=== PATIENT | male | born 1960 | race Caucasian/White ===

== ENCOUNTER 2017-03-31 10:39 | Emergency (ER) | payer BC ==
[2017-03-31 11:33] LABS: #Basophils 0.1 thou/uL (0.0-0.2); #Eosinphils 0.1 thou/uL (0.0-0.7); #Lymphocytes 1.7 thou/uL (1.20-3.40); #Monocytes 0.5 thou/uL (0.11-0.59); #Neutrophils 3.5 thou/uL (1.40-6.50); %Basophils 1.4 % (0.0-1.0); %Eosinophils 1.9 % (0.0-10.0); %Monocytes 8.8 % (0.0-10.0); %Neutrophils 58.9 % (42.0-75.0); Hemoglobin 13.5 g/dL (14.0-18.0); Mean Corpuscular Hemoglobin 30.9 pg (27.0-31.0); Mean Corpuscular Volume 90.9 fl (80.0-94.0); Mean Platelet Volume 7.5 fL (7.4-10.4); Platelet Count 183 thou/uL (130-400); Red Blood Cell (RBC) Count 4.37 mill/uL (4.70-6.10)
[2017-03-31 11:46] LABS: ALT (SGPT) 67 U/L (8-55); AST (SGOT) 64 U/L (5-34); Alkaline Phosphatase 72 U/L (40-150); Anion Gap 16 mmol/L (10-20); BUN (Urea Nitrogen) 12 mg/dL (8.4-25.7); Bilirubin, Total 0.4 mg/dL (0.2-1.2); CK (CPK) 856 U/L (30-200); Calc. Creatinine Clearance 0 mL/min (70-130); Calcium 9.5 mg/dL (7.8-10.44); Carbon Dioxide 22 mmol/L (22-29); Chloride 100 mmol/L (98-107); Estimated GFR-MDRD 65; Globulin 3.5 g/dL (2.4-3.5); Glucose 159 mg/dL (70-105); Lipase 28 U/L (8-78); Potassium 4.3 mmol/L (3.5-5.1); Protein, Total 7.5 g/dL (6.0-8.3); Sodium 134 mmol/L (136-145)
--- NOTE | 2017-03-31 11:46 | RAD ---
RADIOGRAPH CHEST 1 VIEW: HISTORY: A 56-year-old male with acute chest pain and flu-like symptoms. FINDINGS: There are no air space densities, pulmonary edema, pneumothorax, or cardiomegaly. The lateral costop hrenic angles are sharp. IMPRESSION: No acute cardiopulmonary findings. sesar [] POS: [facility]
[2017-03-31 11:49] LABS: Troponin I Less than 0.010 ng/mL (< 0.028)
[2017-03-31] MEDS ORDERED: methylPREDNISolone Sod Succ/PF 125 MG/2 ML VIAL ONE (12:03)
[2017-03-31] MEDS ORDERED: Water For Inject, Bacteriostat 30 ML ONE (12:03)
== END 2017-03-31 12:20 | disposition home or self-care (01) ==
LOC: ERS 10:39
DX: J45.901 Unspecified asthma with (acute) exacerbation (principal); R07.81 Pleurodynia; M62.82 Rhabdomyolysis; I25.2 Old myocardial infarction; E11.9 Type 2 diabetes mellitus without complications; E78.5 Hyperlipidemia, unspecified; I10 Essential (primary) hypertension; F32.9 Major depressive disorder, single episode, unspecified; Z87.891 Personal history of nicotine dependence; Z79.899 Other long term (current) drug therapy
CPT/HCPCS: 36415; 71010; 80053; 82550; 82553; 83605; 83690; 84484; 85025; 93005; 94760; 96374; J2930

== ENCOUNTER 2017-04-26 10:57 | Inpatient (IN) | payer BC ==
[2017-04-26 11:54] LABS: #Eosinphils 0.1 thou/uL (0.0-0.7); #Lymphocytes 1.8 thou/uL (1.20-3.40); #Monocytes 0.8 thou/uL (0.11-0.59); #Neutrophils 10.9 thou/uL (1.40-6.50); %Basophils 0.3 % (0.0-1.0); %Eosinophils 0.8 % (0.0-10.0); %Lymphocytes 13.1 % (21.0-51.0); %Monocytes 5.9 % (0.0-10.0); %Neutrophils 79.9 % (42.0-75.0); Hemoglobin 14.3 g/dL (14.0-18.0); Mean Corpuscular HGB CONC 33.1 g/dL (32.0-36.0); Mean Corpuscular Hemoglobin 30.8 pg (27.0-31.0); Mean Corpuscular Volume 92.8 fl (80.0-94.0); Mean Platelet Volume 7.5 fL (7.4-10.4); Platelet Count 210 thou/uL (130-400); RBC Distribution Width 13.4 % (11.5-14.5); Red Blood Cell (RBC) Count 4.64 mill/uL (4.70-6.10); White Blood Cell (WBC) Count 13.6 thou/uL (4.8-10.8)
[2017-04-26 11:59] LABS: PTT 24.3 SEC (22.9-36.1)
[2017-04-26 12:00] LABS: INR-International Normal Ratio 1.1
[2017-04-26] MEDS ORDERED: Morphine 4 MG/ML Carpuject ONE ×2 (12:00→13:14)
[2017-04-26] MEDS ORDERED: Ondansetron HCl/PF 4 MG/2 ML Vial ONE (12:00)
--- NOTE | 2017-04-26 12:06 | RAD ---
SHORTY 1 VIEW: Date: 04/26/17 HISTORY: 56-year-old male with chest pain and epigastric pain. COMPARISON: 03/31/17. FINDINGS: Jewelry chain overlies the upper chest. Monitor leads overlie the chest. Heart size is normal. No con fluent pneumonia, overt edema, or pleural effusion. IMPRESSION: No significant acute process involving the visualized chest. POS: [facility]
[2017-04-26 12:17] LABS: CKMB 4.3 ng/mL (0-6.6); Troponin I Less than 0.010 ng/mL (< 0.028)
[2017-04-26 12:19] LABS: ALT (SGPT) 52 U/L (8-55); AST (SGOT) 57 U/L (5-34); Albumin 3.8 g/dL (3.5-5.0); Alkaline Phosphatase 56 U/L (40-150); Anion Gap 17 mmol/L (10-20); BUN (Urea Nitrogen) 12 mg/dL (8.4-25.7); Bilirubin, Total 0.5 mg/dL (0.2-1.2); CK (CPK) 216 U/L (30-200); Calc. Creatinine Clearance 0 mL/min (70-130); Calcium 8.8 mg/dL (7.8-10.44); Carbon Dioxide 19 mmol/L (22-29); Chloride 105 mmol/L (98-107); Estimated GFR-MDRD 75; Globulin 3.2 g/dL (2.4-3.5); Glucose 193 mg/dL (70-105); Potassium 4.6 mmol/L (3.5-5.1); Sodium 136 mmol/L (136-145)
[2017-04-26 12:30] LABS: Lipase 5729 U/L (8-78)
[2017-04-26] MEDS ORDERED: Metoclopramide HCl 10 MG/2 ML VIAL ONE (13:21)
[2017-04-26] MEDS ORDERED: ISOVUE-370 76%-LOCM 1 ML ONE (14:15)
[2017-04-26] MEDS ORDERED: Dextrose 5% in Water 1,000 ML IV PRN (14:26)
[2017-04-26] MEDS ORDERED: PROVENTIL INHALER 6.7 G (200 INHALATIONS) INH PRN (14:26)
[2017-04-26] MEDS ORDERED: HumaLOG 300 UNITS/3 ML VIAL SC PRN (14:26)
[2017-04-26] MEDS ORDERED: Dextrose 50% Abboject 50 ML SYRINGE SLOW IVP PRN (14:26)
[2017-04-26] MEDS ORDERED: Promethazine HCl 25 MG/ML VIAL IM PRN (14:26)
[2017-04-26] MEDS ORDERED: Acetaminophen 325 MG TAB PO PRN (14:26)
[2017-04-26] MEDS ORDERED: Ondansetron HCl/PF 4 MG/2 ML Vial IVP PRN (14:26)
[2017-04-26] MEDS ORDERED: Guaifenesin DM 100-10/5 ML UDCUP PO PRN (14:26)
--- NOTE | 2017-04-26 15:41 | HP ---
REASON FOR ADMISSION: Acute pancreatitis. HISTORY OF PRESENT ILLNESS: The patient gives history of having epigastric pain which started around 9:00 a.m. This was radiating up into his retrosternal area. The pain was 10/10 in intensity and wa s always there. He has had similar pains in the past and has had pancreatitis. He has had nearly 5- 6 episodes in the past. The first episode of pancreatitis was in 2008. Patient has seen Dr. Shaun Dillard for his pancreas before. Patient admits to relapsing into drinking alcohol from October s year. The patient's stepdad was in hospice and he was here to see him and in fact his stepdad pass ed away this morning. The pain got worse and patient managed to come to the emergency room here. No complaints of palpitations, fever, or cough. He is passing flatus. PAST MEDICAL AND SURGICAL HISTORY: History of recurrent pancreatitis, likely alcohol induced, prior history of cholecystectomy, hernia repair, diabetes mellitus type 2, dyslipidemia, hypertension, and asthma. CURRENT MEDICATIONS: Glipizide 10 mg daily, metformin 2000 mg daily extended release, morphine exten ded release 30 mg 4 times a day, lisinopril 20 mg daily, Onglyza 5 mg daily, simvastatin 80 mg p.o. a t bedtime, aspirin 81 mg p.o. q.a.m., fluoxetine 40 mg twice daily, Lantus 120 units subcu once daily . He also takes Creon capsules daily before meals and Advair Diskus 2 puffs daily. ALLERGIES: MUSHROOMS. No known drug allergies. PERSONAL HISTORY: The patient continues to drink 4-5 beers on a daily basis. He has relapsed into d rinking alcohol from October of this year. He chews tobacco, does not abuse drugs. Lives with his wi fe. FAMILY HISTORY: Biological mom at the age of 45 years. She has had some variety of hereditary blood disease, which he cannot recall. His biological father of massive [place] at the age of 66. Gideon is stepdad this morning. He has had flu, pneumonia and dementia. REVIEW OF SYSTEMS: The following complete review of systems was negative, unless otherwise mentioned in the HPI or below: Constitutional: Weight loss or gain, ability to conduct usual activities. Sk in: Rash, itching. Eyes: Double vision, pain. ENT/Mouth: Nose bleeding, neck stiffness, pain, te nderness. Cardiovascular: Palpitations, dyspnea on exertion, orthopnea. Respiratory: Shortness of breath, wheezing, cough, hemoptysis, fever or night sweats. Gastrointestinal: Poor appetite, abdom inal pain, heartburn, nausea, vomiting, constipation, or diarrhea. Genitourinary: Urgency, frequenc y, dysuria, nocturia. Musculoskeletal: Pain, swelling. Neurologic/Psychiatric: Anxiety, depressio n. Allergy/Immunologic: Skin rash, bleeding tendency. PHYSICAL EXAMINATION: GENERAL: The patient is a 56-year-old male who is currently not in any acute distress. VITAL SIGNS: Blood pressure 126/84, pulse 80 per minute, respiratory rate 18 per minute, temperature 97.9 degrees Fahrenheit, saturating 93% on room air. NECK: Supple, no elevated JVD. HEENT: Extraocular muscles intact. Pupils reacting to light. Oral cavity mucous membranes are dry. No exudates or congestion. CARDIOVASCULAR SYSTEM: S1, S2 heard. Regular rhythm. RESPIRATORY SYSTEM: Air entry 1+ bilateral, ulcerations. No rales or rhonchi. ABDOMEN: Soft. There is mild tenderness in the epigastric area. No rebound or guarding, no rigidit y. Bowel sounds are heard. EXTREMITIES: There is mild peripheral edema, no calf tenderness. VASCULAR SYSTEM: Peripheral pulses 1+ bilateral. No ischemic ulcerations or gangrene. CENTRAL NERVOUS SYSTEM: No gross focal deficits seen. Patient is alert, awake, oriented well. PSYCHIATRIC: The patient's mood is euthymic. No hallucinations or delusions. LABORATORY DATA AND X-RAY FINDINGS: Chest x-ray done shows no acute cardiopulmonary abnormalities. White count 13, H and H 14 and 42, platelet count 210 with 79% neutrophils, MCV is 92. PT, INR, PTT within normal limits. Serum bicarbonate 19, BUN 12, creatinine 1.0. Glucose 193, AST 57, ALT 52, al kaline phosphatase is 56, total bilirubin 0.5, lipase is 5729, random triglyceride level is 95, and a lbumin is 3.8. CLINICAL IMPRESSION AND PLAN: The patient will be admitted to medical floor for acute on chronic rec urrent pancreatitis due to alcohol abuse. He will be kept n.p.o. except for medications. The patien t will be on normal saline at 100 mL per hour. He is already on an extended release morphine and dexter l continue that in addition to Demerol p.r.n. We will obtain a lipid profile in the morning. We dexter razo hold most of his diabetic medications as patient will be n.p.o. for now. We will continue simvasta tin and his inhalers for his asthma. A CT of the abdomen without contrast will be obtained to see fo r the pancreatic parenchyma. We will also consult his plaster patternmaker, Dr. Shaun Dillard, in fact Dr. Wai Carlin who is telesales professional for the group. We will continue to closely monitor him for any hemody namic compromise.
[2017-04-26] MEDS: Sodium Chloride 0.9% 1,000 ML IV SCH (16:23)
--- NOTE | 2017-04-26 16:25 | CT ---
CT ABDOMEN AND PELVIS WITH CONTRAST 04/26/17 HISTORY: Acute pancreatitis. COMPARISON: CT abdomen and pelvis, 11/24/16. FINDINGS: The lung bases are clear. No pericardial effusion. There is acute edematous pancreatitis of the pancreatic head, neck, uncinate process along with secon jose thickening and duodenitis. The pancreas is unremarkable. The spleen is unremarkable. Prior marielos cystectomy. No areas of nonenhancement of the pancreatic parenchyma. No dilated loops of large or sm all bowel. Small mass of the lateral limb left adrenal gland, too small to characterize and sub 5 mm. No focal drainable fluid collection. No hydronephrosis. The portal vein is patent as well as the splenic vein. Urinary bladder is unremarkable. Skeleton is unremarkable. IMPRESSION: Acute edematous pancreatitis without areas of necrosis. This is worse than the prior bout of pancrea titis from 11/24/16. POS: [facility]
[2017-04-26] MEDS: Meperidine HCl/PF 25 MG/ML VIAL SLOW IVP PRN ×2 (16:28→23:02)
[2017-04-26] MEDS: Mometasone/Formoterol 120 PUFF INHALER INH SCH (19:13)
[2017-04-26] MEDS: Atorvastatin Calcium 40 MG TAB PO SCH (20:46)
[2017-04-26] MEDS: Morphine ER 30 MG TAB PO SCH (20:46)
[2017-04-26] MEDS: Famotidine 20 MG TAB PO SCH (20:47)
[2017-04-26] MEDS: Docusate 100 MG CAP PO SCH (20:47)
[2017-04-26] MEDS: Aripiprazole 2 MG TAB PO SCH (20:47)
--- NOTE | 2017-04-26 23:28 | CON ---
DATE OF CONSULTATION: 04/26/2017 REQUESTING PHYSICIAN: Dr. Dahl. REASON FOR CONSULTATION: Acute recurrent pancreatitis. HISTORY OF PRESENT ILLNESS: Jean Recinos is a 56-year-old gentleman with obesity and diabetes, and al so a history of alcohol abuse, well compensated alcoholic cirrhosis and chronic pancreatitis with mul tiple acute exacerbations. It looks like back in 2012, he was originally seen by my GI colleague, Dr Ceferino Dillard with pancreatitis. He actually underwent endoscopic ultrasound in 2012, which just s howed changes of chronic pancreatitis. In 12/2012, he had a cholecystectomy with negative intraopera tive cholangiogram and actually had an intraoperative liver biopsy at that time showing stage 4 out o f 4 fibrosis and steatohepatitis consistent with alcohol abuse. The patient's last hospitalization f or pancreatitis was in October of last year, he was seen by Dr. Brunner at that time, his hospitalizati on lasted only 2-3 days and he had great symptomatic improvement fairly quickly. He has not had any complications of pancreatitis such as pseudocyst. He does take pancreatic enzymes with meals. How er, he does state that ever since last October, he has continued to drink alcohol. He will have 4-5 b eers per day. However, he states he has not had any alcohol over the past week. Unfortunately, his stepfather earlier today while the patient was being admitted. He had the acute onset of 10 epigastric pain, nausea, and vomiting x2 earlier this morning. He also had three loose bowel mov ements. There has been no hematemesis or hematochezia. Upon admission, his lipase was elevated at 5 729, but other labs were essentially unremarkable with normal LFTs. BUN 12, creatinine 1.02, hemoglo bin 14.3. Chest x-ray showed no acute processes. He is going down at this time for a CT scan with I V Demerol. His pain is now down to 6/10. No current nausea. REVIEW OF SYSTEMS: Full review of systems including constitutional, head, eyes, ears, nose, throat, GI, , cardiovascular, respiratory, musculoskeletal, and neurologic systems is negative except as no carol in the HPI. PAST MEDICAL HISTORY: Diabetes, hypertension, hyperlipidemia, recurrent pancreatitis, cholecystectom y in 2012, alcoholic cirrhosis based on liver biopsy 01/18/2013, and well compensated, hernia repair. ALLERGIES: MUSHROOMS. OUTPATIENT MEDICATIONS: Morphine, glipizide, lisinopril, metformin, Onglyza, Zocor, aspirin 81 mg da corey, fluoxetine, Lantus 120 units b.i.d., Zenpep with meals, albuterol, and Advair. SOCIAL HISTORY: He is a former smoker. He does chew tobacco. He has been drinking alcohol for the past several months, though not over the past week, basically 4-5 beers per day. FAMILY HISTORY: Negative for pancreatic disease. PHYSICAL EXAMINATION: VITAL SIGNS: Temperature 97.9, pulse 84, blood pressure 150/69, and 96% oxygen saturation on room ai r. GENERAL: Obese 56-year-old gentleman lying in bed comfortably, in no acute distress. SKIN: No jaundice, no rash visible or palpable. EYES: No scleral icterus. Extraocular movements intact. ENT: Mucous membranes moist, no oral lesions. LYMPH: No submandibular, supraclavicular lymphadenopathy. THYROID: Nontender to palpation. HEART: Regular rate and rhythm. No murmur appreciated. CHEST: Clear to auscultation bilaterally. ABDOMEN: Bowel sounds are present, but hypoactive, soft, but tender to palpation in the epigastrium. No guarding or rebound tenderness. No masses or organomegaly appreciated. EXTREMITIES: No peripheral edema. VESSELS: Radial pulses 2+ bilaterally. NEUROLOGICAL: Cranial nerves II-XII intact bilaterally. No focal deficits. LABORATORY STUDIES: WBC 13.6, hemoglobin 14.3, platelets 210. Sodium 136, potassium 4.6, BUN 12, cr eatinine 1.02, glucose 193. INR 1.1. Total bilirubin 0.5, alkaline phosphatase 56, AST 57, ALT 52, albumin 3.8, lipase elevated at 5729. Triglycerides only 95. Troponin negative. IMAGING STUDIES: Chest x-ray shows no acute processes. CT of the abdomen is pending for later today . ASSESSMENT AND PLAN: 1. Acute recurrent pancreatitis. 2. Chronic pancreatitis. 3. Cirrhosis secondary to alcohol abuse, well compensated. 4. Alcohol abuse. The patient's presentation is consistent with his prior presentations with acute recurrent pancreatitis. This is in the context of ongoing alcohol abuse. Note to the essentially no rmal LFTs and INR as well as albumin. It appears his cirrhosis remains well compensated. Lab parame ters are overall favorable for a low risk of complications of this episode of pancreatitis. Note, he has already had an endoscopic ultrasound several years ago. We are now continue with conservative supportive care including n.p.o., IV fluids, and pain control a s you are doing, would have him continue his Zenpep once he is eating again. I discussed with him th at he really needs to stay off the alcohol at this time. We will also follow up results of the [facility] ed CT this evening. Hopefully, this episode will be mild and short in duration of his previous episo jessica. Thank you for the consultation. Please call back with questions or concerns.
[2017-04-27] MEDS: Sodium Chloride 0.9% 1,000 ML IV SCH ×3 (00:01→18:10)
[2017-04-27 04:44] LABS: #Lymphocytes 1.3 thou/uL (1.20-3.40); #Monocytes 0.7 thou/uL (0.11-0.59); #Neutrophils 9.7 thou/uL (1.40-6.50); %Eosinophils 0.2 % (0.0-10.0); %Lymphocytes 11.1 % (21.0-51.0); %Monocytes 5.7 % (0.0-10.0); Hemoglobin 13.9 g/dL (14.0-18.0); Mean Corpuscular HGB CONC 34.1 g/dL (32.0-36.0); Mean Corpuscular Hemoglobin 31.5 pg (27.0-31.0); Mean Corpuscular Volume 92.4 fl (80.0-94.0); Mean Platelet Volume 7.8 fL (7.4-10.4); Platelet Count 210 thou/uL (130-400); RBC Distribution Width 13.5 % (11.5-14.5); White Blood Cell (WBC) Count 11.7 thou/uL (4.8-10.8)
[2017-04-27 04:58] LABS: ALT (SGPT) 42 U/L (8-55); AST (SGOT) 34 U/L (5-34); Albumin 3.8 g/dL (3.5-5.0); Alkaline Phosphatase 51 U/L (40-150); Bilirubin, Direct 0.3 mg/dL (0.1-0.3); Bilirubin, Total 0.6 mg/dL (0.2-1.2); Cardiac Risk 2.3 (Less than 4.5); Cholesterol 125 mg/dl (< 200 Desired); HDL Cholesterol 55 mg/dL (>60 Neg Risk); LDL Cholesterol, Calculated 57 mg/dL; Lipase 792 U/L (8-78); Protein, Total 6.9 g/dL (6.0-8.3); Triglycerides 63 mg/dL (Less than 150)
[2017-04-27] MEDS: Morphine ER 30 MG TAB PO SCH ×3 (06:14→20:44)
[2017-04-27] MEDS: Mometasone/Formoterol 120 PUFF INHALER INH SCH ×2 (07:26→19:29)
[2017-04-27] MEDS: Aripiprazole 2 MG TAB PO SCH ×2 (09:09→20:44)
[2017-04-27] MEDS: Famotidine 20 MG TAB PO SCH ×2 (09:09→20:44)
[2017-04-27] MEDS: Enoxaparin Sodium 40 MG/0.4 ML SYRINGE SC SCH (09:09)
[2017-04-27] MEDS: Docusate 100 MG CAP PO SCH ×2 (09:09→20:50)
[2017-04-27] MEDS: Meperidine HCl/PF 25 MG/ML VIAL SLOW IVP PRN ×2 (09:40→20:45)
--- NOTE | 2017-04-27 11:00 | PRG ---
DATE OF SERVICE: 04/27/2017 GI INPATIENT DAILY PROGRESS NOTE SUBJECTIVE: Mr. Recinos says he is feeling a lot better today. Nausea has significantly improved. Abd ominal pain is also greatly declined. He has been passing flatus. He is feeling a bit hungry today as well. Lab parameters were all favorable. PHYSICAL EXAMINATION: VITAL SIGNS: Temperature 97.6, pulse 74, blood pressure 180/81, 96% oxygen saturation on room air. GENERAL: Appearing well, sitting up at the edge of the bed comfortably. HEART: Regular rate and rhythm. LUNGS: Clear to auscultation bilaterally. ABDOMEN: Bowel sounds are present throughout all 4 quadrants. Soft. Some mild tenderness to palpat ion in the epigastrium, but no guarding, rebound tenderness. EXTREMITIES: No peripheral edema. LABORATORY STUDIES: WBC down to 11.7, hemoglobin 13.9, and platelets 210. LFTs remain normal. Lipa se down to 792 from 5729 yesterday. ASSESSMENT AND PLAN: 1. Acute recurrent pancreatitis, clinically improving. 2. Chronic pancreatitis. The patient's acute episode appears to be clinically improving. We will g o ahead and advance his diet to clear liquids this morning. I think if he is tolerating this well wi th no increase in abdominal pain, to consider advancing diet further this evening.
[2017-04-27 12:39] VITALS: BMI 32.5
--- NOTE | 2017-04-27 14:32 | PDOC.PN ---
- Subjective Encounter Start Date: 04/27/17 Encounter Start Time: 08:00 Subjective: still has abd pain, no nausea, is passing flatus - Objective Resuscitation Status: Resuscitation Status FULL:Full Resuscitation MAR Reviewed: Yes Vital Signs & Weight: Vital Signs (12 hours) Temp Pulse Resp BP Pulse Ox 04/27/17 08:00 97.6 F 74 20 180/81 H 96 04/27/17 07:26 81 14 96 Weight Admit Weight 233 lb Weight 233 lb Result Diagrams: 04/27/17 03:25 04/26/17 11:42 Additional Labs: Accuchecks 04/27/17 04/27/17 04/26/17 11:24 04:31 20:25 POC Glucose 182 H 205 H 242 H 04/26/17 16:29 POC Glucose 249 H Phys Exam - Physical Examination HEENT: PERRLA, moist MMs Neck: no JVD, supple Respiratory: no wheezing, no rales Cardiovascular: RRR, no significant murmur Gastrointestinal: soft, no distention, positive bowel sounds Musculoskeletal: no edema, pulses present Neurological: non-focal, moves all 4 limbs Psychiatric: A&O x 3 Dx/Plan (1) Acute pancreatitis Code(s): K85.90 - ACUTE PANCREATITIS WITHOUT NECROSIS OR INFECTION, UNSP Status: Acute Qualifiers: Pancreatitis type: alcohol induced (2) COPD (chronic obstructive pulmonary disease) Status: Chronic Qualifiers: COPD type: chronic bronchitis (3) Chronic low back pain Code(s): M54.5 - LOW BACK PAIN; G89.29 - OTHER CHRONIC PAIN Status: Chronic Qualifiers: Back pain laterality: unspecified Sciatica presence: without sciatica Qualified Code(s): M54.5 - Low back pain; G89.29 - Other chronic pain; G89.29 - Other chronic pain (4) Diabetes type 2, controlled Code(s): E11.9 - TYPE 2 DIABETES MELLITUS WITHOUT COMPLICATIONS Status: Chronic Qualifiers: Diabetes mellitus complication status: with unspecified complications Diabetes mellitus halfway insulin use: with halfway use Qualified Code(s) : E11.8 - Type 2 diabetes mellitus with unspecified complications; Z79.4 - local intermodal truck driver (current) use of insulin; Z79.4 - local intermodal truck driver (current) use of insulin; Z79.4 - senior care (current) use of insulin; Z79.4 - senior care (current) use of insulin (5) GERD (gastroesophageal reflux disease) Code(s): K21.9 - GASTRO-ESOPHAGEAL REFLUX DISEASE WITHOUT ESOPHAGITIS Status: Chronic Qualifiers: Esophagitis presence: esophagitis presence not specified Qualified Code(s) : K21.9 - Gastro-esophageal reflux disease without esophagitis (6) Hypertension Code(s): I10 - ESSENTIAL (PRIMARY) HYPERTENSION Status: Chronic Qualifiers: Hypertension type: essential hypertension Qualified Code(s): I10 - Essential (primary) hypertension (7) Obesity (BMI 30.0-34.9) Code(s): E66.9 - OBESITY, UNSPECIFIED Status: Chronic - Plan will be on clear liq diet from today -: on demerol, oral morphine ER, lipitor -: gentle iv hydration -: to amb in hallway -: watch for resp depression with narcotics and phenergan * . Review of Systems - Medications/Allergies Allergies/Adverse Reactions: Allergies Allergy/AdvReac Type Severity Reaction Status Date / Time No Known Drug Allergies Allergy Verified 07/06/14 00:10 MUSHROOMS Allergy Severe Uncoded 07/06/14 00:10 Medications: Current Medications Acetaminophen (Tylenol) 650 mg PO Q4H PRN PRN Reason: Headache/Fever or Pain Albuterol Sulfate (Proventil Hfa) 2 puff INH Q4H PRN PRN Reason: SOB &/or Wheezing Aripiprazole (Abilify) 2 mg PO BID [facility] Last Admin: 04/27/17 09:09 Dose: 2 mg Atorvastatin Calcium (Lipitor) 40 mg PO HS [facility] Last Admin: 04/26/17 20:46 Dose: 40 mg Dextrose/Water (Dextrose 50%) 25 gm SLOW IVP PRN PRN PRN Reason: Hypoglycemia Docusate Sodium (Colace) 100 mg PO BID [facility] Last Admin: 04/27/17 09:09 Dose: 100 mg Enoxaparin Sodium (Lovenox) 40 mg SC 0900 [facility] Last Admin: 04/27/17 09:09 Dose: 40 mg Famotidine (Pepcid) 20 mg PO BID [facility] Last Admin: 04/27/17 09:09 Dose: 20 mg Glucagon (Glucagon) 1 mg IM PRN PRN PRN Reason: Hypoglycemia Guaifenesin/Dextromethorphan (Robitussin Dm) 15 ml PO Q4H PRN PRN Reason: Cough Dextrose/Water (D5w) 1,000 mls @ 0 mls/hr IV .Q0M PRN; As Directed PRN Reason: Hypoglycemia Sodium Chloride (Normal Saline 0.9%) 1,000 mls @ 100 mls/hr IV .Q10H [facility] Last Admin: 04/27/17 09:10 Dose: 1,000 mls Insulin Human Lispro (Humalog) 0 units SC .MODERATE SLIDING SC PRN PRN Reason: Moderate Correctional Scale Insulin Human Lispro (Humalog) 0 units SC .BEDTIME SLIDING SC PRN PRN Reason: Bedtime Correctional Scale Meperidine HCl (Demerol) 25 mg SLOW IVP Q3H PRN PRN Reason: Severe Pain (7-10) Last Admin: 04/27/17 09:40 Dose: 25 mg Mometasone Furoate/Formoterol Fumar (Dulera 100 Mcg/5 Mcg Inhaler) 2 puff INH BID-RT [facility] Last Admin: 04/27/17 07:26 Dose: 2 puff Morphine Sulfate (Ms Contin) 30 mg PO Q8HR [facility] Last Admin: 04/27/17 06:14 Dose: 30 mg Ondansetron HCl (Zofran) 4 mg IVP Q6H PRN PRN Reason: Nausea/Vomiting Last Admin: 04/26/17 20:33 Dose: 4 mg Promethazine HCl (Phenergan) 12.5 mg IM Q4H PRN PRN Reason: Nausea/Vomiting
[2017-04-27] MEDS: Nicotine 21 MG PATCH TD SCH (15:05)
[2017-04-27] MEDS: HumaLOG 300 UNITS/3 ML VIAL SC PRN (18:08)
[2017-04-27] MEDS: Atorvastatin Calcium 40 MG TAB PO SCH (20:44)
[2017-04-28] MEDS: Morphine ER 30 MG TAB PO SCH ×3 (05:49→21:27)
[2017-04-28] MEDS: Sodium Chloride 0.9% 1,000 ML IV SCH ×2 (05:51→16:36)
[2017-04-28] MEDS: Mometasone/Formoterol 120 PUFF INHALER INH SCH ×2 (06:42→22:17)
[2017-04-28] MEDS: Famotidine 20 MG TAB PO SCH ×2 (08:11→21:27)
[2017-04-28] MEDS: Docusate 100 MG CAP PO SCH ×2 (08:12→21:27)
[2017-04-28] MEDS: Enoxaparin Sodium 40 MG/0.4 ML SYRINGE SC SCH (08:12)
[2017-04-28] MEDS: Aripiprazole 2 MG TAB PO SCH ×2 (08:19→21:41)
[2017-04-28] MEDS: Meperidine HCl/PF 25 MG/ML VIAL SLOW IVP PRN ×3 (08:24→21:34)
--- NOTE | 2017-04-28 11:42 | PDOC.PN ---
- Subjective Encounter Start Date: 04/28/17 Encounter Start Time: 11:40 Subjective: minimal abd discomfort, no N/V - Objective Resuscitation Status: Resuscitation Status FULL:Full Resuscitation MAR Reviewed: Yes Vital Signs & Weight: Vital Signs (12 hours) Temp Pulse Resp BP Pulse Ox 04/28/17 11:34 98.4 F 74 18 119/78 95 04/28/17 08:00 98.3 F 81 18 94 L 04/28/17 07:28 98.3 F 81 18 155/85 H 94 L 04/28/17 06:42 84 16 94 L Weight Admit Weight 233 lb Weight 233 lb I&O: 04/27/17 04/28/17 04/29/17 06:59 06:59 06:59 Intake Total 840 Balance 840 Result Diagrams: 04/27/17 03:25 04/26/17 11:42 Additional Labs: Accuchecks 04/28/17 04/27/17 04/27/17 05:15 21:22 16:18 POC Glucose 171 H 203 H 198 H 04/27/17 11:24 POC Glucose 182 H Phys Exam - Physical Examination Constitutional: NAD Neck: no JVD Respiratory: clear to auscultation bilateral Cardiovascular: RRR, no significant murmur Gastrointestinal: soft, non-tender, positive bowel sounds Musculoskeletal: no edema Dx/Plan (1) Acute pancreatitis Code(s): K85.90 - ACUTE PANCREATITIS WITHOUT NECROSIS OR INFECTION, UNSP Status: Acute Qualifiers: Pancreatitis type: alcohol induced (2) COPD (chronic obstructive pulmonary disease) Status: Chronic Qualifiers: COPD type: chronic bronchitis (3) Diabetes type 2, controlled Code(s): E11.9 - TYPE 2 DIABETES MELLITUS WITHOUT COMPLICATIONS Status: Chronic Qualifiers: Diabetes mellitus complication status: with unspecified complications Diabetes mellitus mcfp insulin use: with terminal clerk use Qualified Code(s) : E11.8 - Type 2 diabetes mellitus with unspecified complications; Z79.4 - terminal supervisor (current) use of insulin; Z79.4 - detention (current) use of insulin; Z79.4 - detention (current) use of insulin; Z79.4 - detention (current) use of insulin (4) GERD (gastroesophageal reflux disease) Code(s): K21.9 - GASTRO-ESOPHAGEAL REFLUX DISEASE WITHOUT ESOPHAGITIS Status: Chronic Qualifiers: Esophagitis presence: esophagitis presence not specified Qualified Code(s) : K21.9 - Gastro-esophageal reflux disease without esophagitis (5) H/O chronic pancreatitis Code(s): Z87.19 - PERSONAL HISTORY OF OTHER DISEASES OF THE DIGESTIVE SYSTEM Status: Chronic - Plan advance diet, monitor for GI symptoms -: cont ACCU/SS/ etc * .
--- NOTE | 2017-04-28 13:24 | PRG ---
DATE OF SERVICE: 04/28/2017 SUBJECTIVE: Mr. Recinos is feeling well this morning. No nausea. He feels hungry. He has been passin g gas. He rates his abdominal pain about 4-5/10, which is close to his baseline. He is wanting to t ry to eat solid food today. He tolerated full liquids just fine. OBJECTIVE: VITAL SIGNS: Temperature 98.4, pulse 74, blood pressure 119/78, 95% oxygen saturation on room air. GENERAL: In no acute distress. HEART: Regular rate and rhythm. LUNGS: Clear to auscultation bilaterally. ABDOMEN: Bowel sounds are present, soft, mild tenderness to palpation in the epigastrium, but no gua rding or rebound tenderness. EXTREMITIES: No peripheral edema. LABORATORY STUDIES: Glucose 188. No other new labs today. ASSESSMENT AND PLAN: 1. Acute recurrent pancreatitis, clinically improving. 2. Chronic pancreatitis, secondary to alcohol abuse. 3. Cirrhosis secondary to alcohol abuse, very well compensated. Agree with advancing his diet today and seeing how he does. I think if he tolerates lunch without an y worsening abdominal pain, he could potentially be discharged from the hospital later today.
[2017-04-28] MEDS: Nicotine 21 MG PATCH TD SCH (13:32)
[2017-04-28] MEDS: Atorvastatin Calcium 40 MG TAB PO SCH (21:27)
[2017-04-28] MEDS: HumaLOG 300 UNITS/3 ML VIAL SC PRN (21:39)
[2017-04-29] MEDS: Sodium Chloride 0.9% 1,000 ML IV SCH ×2 (02:26→02:27)
[2017-04-29] MEDS: Morphine ER 30 MG TAB PO SCH (05:17)
[2017-04-29] MEDS: Mometasone/Formoterol 120 PUFF INHALER INH SCH (07:41)
[2017-04-29] MEDS: Meperidine HCl/PF 25 MG/ML VIAL SLOW IVP PRN (08:53)
[2017-04-29] MEDS: Famotidine 20 MG TAB PO SCH (08:54)
[2017-04-29] MEDS: Aripiprazole 2 MG TAB PO SCH (08:54)
[2017-04-29] MEDS: Enoxaparin Sodium 40 MG/0.4 ML SYRINGE SC SCH (08:55)
[2017-04-29] MEDS: Docusate 100 MG CAP PO SCH (08:55)
[2017-04-29 11:16] VITALS: BP 123/76; TEMP 97.5
--- NOTE | 2017-04-29 11:43 | DIS ---
DATE OF ADMISSION: 04/26/2017 DATE OF DISCHARGE: 04/29/2017 PRIMARY CARE PROVIDER: Michael Welch M.D. FINAL DIAGNOSES: Acute on chronic pancreatitis, alcoholism, diabetes mellitus type 2, dyslipidemia, and hypertension. DISCHARGE MEDICATIONS: Same as his home medicines, aspirin 81 mg a day, aripiprazole 2 mg twice a da y, Ventolin puffs q.4 hours p.r.n. a day, testosterone gel daily, Advair Diskus 1 inhaler b.i.d., Amb ien 10 mg at bedtime, Creon 1 capsule q.i.d. with meals, simvastatin 80 mg a day, lisinopril 20 mg a day, Toujeo SoloStar 100 units subcu in the morning, glipizide 10 mg twice a day, Nexium 40 mg twice a day, metformin 2000 mg a day, and Prozac 80 mg a day. ALLERGIES: No known drug allergies. PENDING AT THE TIME OF DISCHARGE: Nothing. CODE STATUS: FULL. HOSPITAL COURSE: Patient with a history of alcoholism, pancreatitis, presents with epigastric pain, severe, similar to episodes, admitted to drinking off alcohol. His initial laboratory revealed a lip ase of 5729, follow up at 24 hours was down to 792. Comp metabolic profile was remarkable only for a CO2 of 19, blood sugar 193, and AST of 57. The patient was initially n.p.o. and started on clear li quids and has had a diabetic diet today. Yesterday and today without pain. His vital signs are stab le. Abdominal exam is benign. CONSULTATIONS: Dr. Wai Carlin. PROCEDURES: None. He is being discharged to follow up with Dr. Michael Welch in a week. He has been cautioned about al cohol intake. He has been asked to resume his home medicines.
== END 2017-04-29 12:55 | disposition home or self-care (01) | DRG 440 ==
LOC: ERS 10:57 → T4-B 12:49
PROVIDERS: ADMIT Internal Medicine; ATTEND Internal Medicine
DX: K85.20 Alcohol induced acute pancreatitis without necrosis or infection (principal); K70.30 Alcoholic cirrhosis of liver without ascites; E11.9 Type 2 diabetes mellitus without complications; E78.5 Hyperlipidemia, unspecified; I10 Essential (primary) hypertension; J45.909 Unspecified asthma, uncomplicated; Z79.82 Long term (current) use of aspirin; Z79.4 Long term (current) use of insulin; Z79.891 Long term (current) use of opiate analgesic; Z79.51 Long term (current) use of inhaled steroids; F17.220 Nicotine dependence, chewing tobacco, uncomplicated; K86.0 Alcohol-induced chronic pancreatitis; E66.9 Obesity, unspecified; Z68.32 Body mass index [BMI] 32.0-32.9, adult; J42 Unspecified chronic bronchitis; K21.9 Gastro-esophageal reflux disease without esophagitis; M54.5 Low back pain; G89.29 Other chronic pain
CPT/HCPCS: 36415; 36416; 71045; 74177; 80053; 80061; 80076; 82550; 82553; 83690; 84478; 84484; 85025; 85610; 85730; 93005; 96361; 96365; 96375; 96376; J1650; J2175; J2270; J2405; J2765

== ENCOUNTER 2017-08-03 19:04 | Observation (INO) | payer BC ==
[2017-08-03 19:35] LABS: #Eosinphils 0.3 thou/uL (0.0-0.7); #Lymphocytes 2.4 thou/uL (1.20-3.40); #Monocytes 0.6 thou/uL (0.11-0.59); #Neutrophils 4.2 thou/uL (1.40-6.50); %Basophils 0.5 % (0.0-1.0); %Eosinophils 3.4 % (0.0-10.0); %Lymphocytes 32.1 % (21.0-51.0); %Monocytes 8.6 % (0.0-10.0); %Neutrophils 55.4 % (42.0-75.0); Hemoglobin 14.3 g/dL (14.0-18.0); Mean Corpuscular HGB CONC 34.8 g/dL (32.0-36.0); Mean Corpuscular Hemoglobin 30.8 pg (27.0-31.0); Mean Corpuscular Volume 88.5 fl (80.0-94.0); Mean Platelet Volume 7.1 fL (7.4-10.4); Platelet Count 207 thou/uL (130-400); Red Blood Cell (RBC) Count 4.65 mill/uL (4.70-6.10); White Blood Cell (WBC) Count 7.5 thou/uL (4.8-10.8)
[2017-08-03] MEDS ORDERED: Nitroglycerin 2% Ointment 1 INCH/1 GM Packet ONE (19:52)
--- NOTE | 2017-08-03 19:55 | RAD ---
CHEST ONE VIEW: 08/03/17 HISTORY: 56-year-old male with history of chest pain. COMPARISON: 04/26/17 FINDINGS: Monitor leads overlie the chest. Heart size is normal. The lungs are clear. IMPRESSION: No acute intrathoracic disease. Stable from prior study. POS: [facility]
[2017-08-03 19:56] LABS: ALT (SGPT) 68 U/L (8-55); AST (SGOT) 54 U/L (5-34); Albumin 4.4 g/dL (3.5-5.0); Alkaline Phosphatase 59 U/L (40-150); Anion Gap 17 mmol/L (10-20); BUN (Urea Nitrogen) 11 mg/dL (8.4-25.7); Bilirubin, Total 0.5 mg/dL (0.2-1.2); CK (CPK) 128 U/L (30-200); Calc. Creatinine Clearance 0 mL/min (70-130); Calcium 9.2 mg/dL (7.8-10.44); Carbon Dioxide 20 mmol/L (22-29); Chloride 101 mmol/L (98-107); Estimated GFR-MDRD 77; Globulin 3.6 g/dL (2.4-3.5); Glucose 109 mg/dL (70-105); Lipase 77 U/L (8-78); Potassium 4.4 mmol/L (3.5-5.1); Sodium 134 mmol/L (136-145)
[2017-08-03 20:00] LABS: CKMB 2.9 ng/mL (0-6.6); Troponin I Less than 0.010 ng/mL (< 0.028)
[2017-08-03] MEDS ORDERED: Acetaminophen 325 MG TAB PO PRN (20:33)
[2017-08-03] MEDS ORDERED: Nitroglycerin 0.4 MG TAB (25 Tab Bottle) PO PRN (20:36)
[2017-08-03] MEDS ORDERED: Lorazepam 2 MG/ML VIAL SLOW IVP PRN (20:39)
[2017-08-03] MEDS ORDERED: Lorazepam 1 MG TAB PO PRN (20:39)
[2017-08-03] MEDS ORDERED: Dextrose 5% in Water 1,000 ML IV PRN (20:54)
[2017-08-03] MEDS ORDERED: HumaLOG 300 UNITS/3 ML VIAL SC PRN (20:54)
[2017-08-03] MEDS ORDERED: Dextrose 50% Abboject 50 ML SYRINGE SLOW IVP PRN (20:54)
[2017-08-03] MEDS ORDERED: Atorvastatin Calcium 40 MG TAB PO SCH (21:00)
[2017-08-03] MEDS ORDERED: Famotidine 40 MG/4 ML VIAL SLOW IVP SCH (21:00)
[2017-08-03] MEDS ORDERED: PROTEASE PO SCH (21:00)
[2017-08-03] MEDS ORDERED: LIPASE PO SCH (21:00)
[2017-08-03] MEDS ORDERED: [UNRECOGNIZED DRUG - OTHER] PO SCH (21:00)
[2017-08-03] MEDS ORDERED: AMYLASE PO SCH (21:00)
[2017-08-03] MEDS ORDERED: Zolpidem Tartrate 5 MG TAB PO SCH (21:00)
[2017-08-03] MEDS ORDERED: Insulin Detemir 100 UNITS/ML 10 UNITS in Pre-Filled Syringe 1 EACH SC SCH (21:00)
--- NOTE | 2017-08-03 21:38 | CT ---
BRAIN CT WITHOUT IV CONTRAST: 08/03/17 HISTORY: 56-year-old male with history of left arm weakness, diaphoresis, dizziness. No focal mass or midline shift. No intra or extra-axial hemorrhage. Sinuses and mastoids are clear. IMPRESSION: No acute intracranial process. No mass or bleed. POS: [facility]
[2017-08-03 21:59] VITALS: BMI 34.0
[2017-08-03] MEDS: Heparin 5,000 UNITS/ML VIAL SC SCH (21:59)
[2017-08-03] MEDS: Docusate 100 MG CAP PO SCH (21:59)
[2017-08-03] MEDS: Gabapentin 300 MG CAP PO SCH (21:59)
[2017-08-03] MEDS ORDERED: Pantoprazole 40 MG VIAL IVP SCH (22:00)
[2017-08-03] MEDS: Morphine ER 30 MG TAB PO SCH (22:00)
[2017-08-03 22:44] LABS: CKMB 2.5 ng/mL (0-6.6); Troponin I Less than 0.010 ng/mL (< 0.028)
[2017-08-04] MEDS: Lorazepam 1 MG TAB PO SCH ×4 (00:05→13:24)
--- NOTE | 2017-08-04 01:24 | HP ---
PRIMARY CARE PHYSICAN: Michael Welch M.D. CHIEF COMPLAINT: Chest pain. HISTORY OF PRESENT ILLNESS: Patient is a very pleasant 56-year-old male who presents to the hospital with complaint of chest tightness x1 day. The patient states that he was at work when he started fe eling chest pain radiating down his left hand. Patient denies any fevers or chills. However, he sta summer that he was nauseated and had emesis x1. The patient states that for the past 2-3 days he has no t been feeling well and has been having diarrhea. Denies any shortness of breath; however, does comp felicia of some diaphoresis and dizziness today. Patient states that after applying the nitroglycerin p aste, the patient's chest pain has improved. Patient states that his chest pain is a pressure-like s ensation starting on his substernal area radiating down his left hand. PAST MEDICAL HISTORY: 1. Patient has a past medical history of alcohol use. 2. Hypertension. 3. Asthma. 4. Recurrent pancreatitis. 5. Diabetes type 2. 6. Dyslipidemia. PAST SURGICAL HISTORY: He has had cholecystectomy and hernia repair. CURRENT MEDICATIONS: As the following; Ambien 10 mg at bedtime, lisinopril 20 mg daily, lipase 25,00 0 one q.i.d., Prozac 80 mg daily, metformin 2000 mg p.o. q.p.m., glipizide 10 mg p.o. b.i.d., simvast atin 80 mg at bedtime, multivitamin 1 cap p.o. daily, morphine 30 mg p.o. t.i.d., Skelaxin 800 mg p.o . p.r.n., he takes insulin 100 units subcu q.a.m., Nexium 20 mg b.i.d., Zyrtec 10 mg p.o. b.i.d., asp irin 81 mg p.o. daily, and alprazolam 2 mg p.o. b.i.d. ALLERGIES: He has no known drug allergies. FAMILY HISTORY: Biological mother at the age of 45. She has some blood disease. The patient d oes not know what it is. Patient states that his father of a massive DC at the age of 66. He s tated that his stepfather also. SOCIAL HISTORY: The patient drinks three 24 packs a week. Chews tobacco. Denies any drug use. REVIEW OF SYSTEMS: The following complete review of systems was negative, unless otherwise mentioned in the HPI or below: Constitutional: Weight loss or gain, ability to conduct usual activities. Sk in: Rash, itching. Eyes: Double vision, pain. ENT/Mouth: Nose bleeding, neck stiffness, pain, te nderness. Cardiovascular: Palpitations, dyspnea on exertion, orthopnea. Respiratory: Shortness of breath, wheezing, cough, hemoptysis, fever or night sweats. Gastrointestinal: Poor appetite, abdom inal pain, heartburn, nausea, vomiting, constipation, or diarrhea. Genitourinary: Urgency, frequenc y, dysuria, nocturia. Musculoskeletal: Pain, swelling. Neurologic/Psychiatric: Anxiety, depressio n. Allergy/Immunologic: Skin rash, bleeding tendency. All negative except for the ones mentioned i n the HPI. PHYSICAL EXAMINATION: VITAL SIGNS: Patient's blood pressure is 142/86, pulse of 82, respirations 18, temperature 98.5, and 96% on room air. GENERAL: He is awake, alert, oriented x3, does not appear in distress. CARDIOVASCULAR: S1, S2 present. No murmurs, rubs or gallops. ABDOMEN: Obese. Bowel sounds are present x2. Mild tenderness in epigastric area on palpitation. LUNGS: Mild expiratory wheezing all over. EXTREMITIES: Lower extremity, may be slight lower extremity edema. NEUROVASCULAR: 5/5 upper extremity strength and 5/5 lower extremity strength. Sensation intact bila teral upper and lower. CHEST WALL: No pain reproducible upon palpation. LABORATORY DATA: As the following his WBCs are 7.5, hemoglobin 14.3, hematocrit 41.2, and platelets of 207. His chemistry indicates sodium of 134, potassium 4.4, BUN of 17, creatinine of 1, and his gl ucose is 109. His LFT AST and ALT are mildly elevated at 54 AST and ALT are 68. His troponin x1 is negative. Chest x-ray that was done indicated no intrathoracic abnormalities. EKG: No ST elevation or ST depr ession noted. ASSESSMENT AND PLAN: The patient is a very pleasant 56-year-old male who presents to the hospital fo r chest pain. 1. Chest pain. We will trend troponins x3. EKG no acute changes. We will start patient on aspirin and statin. May consider starting patient on Lovenox. We will also check a D-dimer on this patient since he has a very sedentary lifestyle. May consider consulting Cardiology for further evaluation, if not, we will do a stress test in the morning if tropes are negative. 2. Expiratory wheezing/asthma. We will start the patient on some DuoNebs and continue to monitor. 3. History of alcohol use. The patient has never had any DTs or had ever been intubated or underwen t withdrawal. Patient states his last alcoholic beverage was on Saturday. He drinks 3 packs of 24 in a week. We will put the patient on ASE protocol. We will start thiamine and folic acid and also we will schedule Ativan 1 mg q.6 hours scheduled and also p.r.n. and also we will start the patient on N eurontin. 4. Diabetes. We will continue the patient's home medications. 5. History of pancreatitis. We will continue patient's home medications. 6. Deep venous thrombosis prophylaxis. We will put the patient on subcu heparin.
[2017-08-04 02:37] LABS: Troponin I 0.013 ng/mL (< 0.028)
[2017-08-04 02:40] LABS: Anion Gap 12 mmol/L (10-20); BUN (Urea Nitrogen) 13 mg/dL (8.4-25.7); Calc. Creatinine Clearance 105 mL/min (70-130); Calcium 9.2 mg/dL (7.8-10.44); Carbon Dioxide 26 mmol/L (22-29); Cardiac Risk 2.2 (Less than 4.5); Chloride 100 mmol/L (98-107); Cholesterol 122 mg/dl (< 200 Desired); Estimated GFR-MDRD 62; Glucose 141 mg/dL (70-105); HDL Cholesterol 55 mg/dL (>60 Neg Risk); LDL Cholesterol, Calculated 33 mg/dL; Potassium 4.2 mmol/L (3.5-5.1); Sodium 134 mmol/L (136-145); Triglycerides 170 mg/dL (Less than 150)
[2017-08-04 02:45] LABS: CKMB 2.5 ng/mL (0-6.6); Troponin I Less than 0.010 ng/mL (< 0.028)
[2017-08-04 02:56] LABS: Band 2 % (5-11); Eosinophils 2 % (0-10); Hemoglobin 13.2 g/dL (14.0-18.0); Lymphocytes 42 % (21-51); MDiff Complete? YES; Mean Corpuscular HGB CONC 34.6 g/dL (32.0-36.0); Mean Corpuscular Hemoglobin 31.1 pg (27.0-31.0); Mean Corpuscular Volume 89.9 fl (80.0-94.0); Mean Platelet Volume 7.1 fL (7.4-10.4); Monocytes 2 % (0-10); Neutrophil 52 % (42-75); PLT Morphology Comment Appears Adequate; Platelet Count 179 thou/uL (130-400); RBC Distribution Width 13.1 % (11.5-14.5); RBC Morphology Normal; Red Blood Cell (RBC) Count 4.26 mill/uL (4.70-6.10); White Blood Cell (WBC) Count 6.2 thou/uL (4.8-10.8)
[2017-08-04] MEDS ORDERED: Mometasone/Formoterol 120 PUFF INHALER INH SCH (06:30)
[2017-08-04] MEDS ORDERED: Lisinopril 20 MG TAB PO SCH (09:00)
[2017-08-04] MEDS ORDERED: Aspirin 325 MG TAB PO SCH (09:00)
[2017-08-04] MEDS ORDERED: Folic Acid 1 MG TAB PO SCH (09:00)
[2017-08-04] MEDS ORDERED: FLUoxetine HCl 20 MG CAP PO SCH (09:00)
[2017-08-04] MEDS ORDERED: Regadenoson 0.4 MG/5 ML SYRINGE ONE (11:40)
[2017-08-04 11:44] VITALS: TEMP 97.7
--- NOTE | 2017-08-04 12:13 | NM ---
RADIONUCLIDE STRESS AND REST MYOCARDIAL PERFUSION SCAN WITH CT ATTENUATION CORRECTION AND SPECT IMAGI NG WITH LEFT VENTRICULAR WALL MOTION EVALUATION AND EJECTION FRACTION: HISTORY: Chest pain. FINDINGS: Lexiscan protocol was used. There was homogeneous uptake of radiotracer throughout the left ventricular myocardium. No focal perf usion defect or reversibility. QGS analysis of gated SPECT images showed no focal wall motion abnormalities. Left ventricular ejection fraction calculated at 59%. IMPRESSION: 1. Normal myocardial perfusion scan. 2. Normal LVEF. POS: STEPHANIE
[2017-08-04] MEDS: Gabapentin 300 MG CAP PO SCH (13:22)
[2017-08-04] MEDS: Morphine ER 30 MG TAB PO SCH (13:23)
[2017-08-04] MEDS: Heparin 5,000 UNITS/ML VIAL SC SCH (13:24)
[2017-08-04] MEDS: Docusate 100 MG CAP PO SCH (13:24)
[2017-08-04 13:26] VITALS: BP 135/69
--- NOTE | 2017-08-04 20:15 | DIS ---
DATE OF ADMISSION: 08/03/2017 DATE OF DISCHARGE: 08/03/2017 PRIMARY CARE PROVIDER: Michael Welch M.D. DISCHARGE DIAGNOSES: Chest pain. CONDITION OF PATIENT ON DATE OF DISCHARGE: Stable. I assessed Mr. Recinos on the day of discharge. He reports the chest pain is better. Vital signs are stable. S1 and S2 are heard, regular. Lungs are clear to auscultation bilaterally. He has reproducible tenderness over the left side of his chest w all. DISCHARGE MEDICATIONS: Same as preadmission home medications as dictated on history and physical not e by Dr. Giron on 08/03/2017 . HOSPITAL COURSE: Mr. Recinos is a pleasant 56-year-old gentleman who was admitted to [facility] on 08/03/2017 for left-sided chest pain. He had a low D-dimer. On 08/04/2017, he un derwent nuclear stress test, which was normal. Left ventricular ejection fraction was calculated at 59%. He most likely has musculoskeletal chest pain. He has been advised to take over the counter me dications for chest pain. He also has a history of alcohol abuse. He has been advised to follow up with his primary care lisa cabrera for resources for abstinence from alcohol. Many thanks for allowing me to participate in your patient's care. Please feel free to contact me wi th any questions or concerns. Please note that there was no mediastinal widening during this hospita lization. He also did not have any significant difference in blood pressures in both arms. DISCHARGE DESTINATION: Home.
[2017-08-04] MEDS ORDERED: Pantoprazole 40 MG VIAL IVP SCH (21:00)
== END 2017-08-04 13:50 | disposition home or self-care (01) ==
LOC: ERS 19:04 → 2SW 21:38
PROVIDERS: ADMIT Internal Medicine; ATTEND Internal Medicine
DX: R07.89 Other chest pain (principal); I10 Essential (primary) hypertension; J45.909 Unspecified asthma, uncomplicated; E11.9 Type 2 diabetes mellitus without complications; E78.5 Hyperlipidemia, unspecified; K86.1 Other chronic pancreatitis; F17.220 Nicotine dependence, chewing tobacco, uncomplicated; F10.10 Alcohol abuse, uncomplicated; Z79.51 Long term (current) use of inhaled steroids; Z79.4 Long term (current) use of insulin; Z79.82 Long term (current) use of aspirin; Z79.891 Long term (current) use of opiate analgesic; Z79.899 Other long term (current) drug therapy; Z91.018 Allergy to other foods
CPT/HCPCS: 36415; 36416; 70450; 71045; 78452; 80048; 80053; 80061; 82550; 82553; 83690; 84484; 85007; 85025; 85027; 85379; 93005; 93017; 94640; 96374; 99406; A4216; A9500; C9113; G0378; J1644; J1815; J2785; J7620

== ENCOUNTER 2017-11-01 16:19 | Inpatient (IN) | payer BC ==
[2017-11-01 17:22] LABS: #Lymphocytes 1.2 thou/uL (1.20-3.40); #Monocytes 0.9 thou/uL (0.11-0.59); #Neutrophils 9.5 thou/uL (1.40-6.50); %Eosinophils 0.2 % (0.0-10.0); %Lymphocytes 10.6 % (21.0-51.0); %Neutrophils 81.2 % (42.0-75.0); Hemoglobin 12.7 g/dL (14.0-18.0); Mean Corpuscular HGB CONC 35.2 g/dL (32.0-36.0); Mean Corpuscular Hemoglobin 30.6 pg (27.0-31.0); Mean Corpuscular Volume 86.8 fL (78.0-98.0); Mean Platelet Volume 7.5 fL (7.4-10.4); Platelet Count 182 thou/uL (130-400); Red Blood Cell (RBC) Count 4.16 mill/uL (4.70-6.10); White Blood Cell (WBC) Count 11.7 thou/uL (4.8-10.8)
--- NOTE | 2017-11-01 17:37 | RAD ---
THREE VIEW RIGHT FOOT: 11/01/17 INDICATION: Cellulitis. FINDINGS: There is evidence of an osteotomy of the first digit with overlying soft tissue prominence. Focal agustin ency projects at the medial base of the second digit proximal phalanx on the frontal view, not discre tely visualized on the additional views and could relate to a focal area of demineralization. There i s vascular calcification. Scattered osteophytes are present. IMPRESSION: Evidence of osteotomy of the first digit. Prominent soft tissues of the great toe. Correlate clinically. Osseous irregularity of the residual osseous structures of the great toe could relate to postoperativ e changes although the possibility of superimposed osteomyelitis is not excluded. POS: HÉCTOR
[2017-11-01 17:40] LABS: ALT (SGPT) 28 U/L (8-55); AST (SGOT) 25 U/L (5-34); Albumin 4.1 g/dL (3.5-5.0); Alkaline Phosphatase 69 U/L (40-150); Anion Gap 16 mmol/L (10-20); BUN (Urea Nitrogen) 16 mg/dL (8.4-25.7); Bilirubin, Total 0.8 mg/dL (0.2-1.2); Calc. Creatinine Clearance 0 mL/min (70-130); Carbon Dioxide 22 mmol/L (22-29); Chloride 95 mmol/L (98-107); Estimated GFR-MDRD 51; Globulin 3.4 g/dL (2.4-3.5); Glucose 152 mg/dL (70-105); Potassium 4.5 mmol/L (3.5-5.1); Protein, Total 7.5 g/dL (6.0-8.3); Sodium 128 mmol/L (136-145)
[2017-11-01 17:50] LABS: Bilirubin Negative (Negative); Blood, Urine Trace (Negative); Clarity CLEAR (Clear); Glucose, Urine (Dipstick) Negative (Negative); Leukocyte Negative (Negative); Nitrite Negative (Negative); Protein, Urine (Dipstick) 100 mg/dL (Neg-Trace); Specific Gravity, Urine 1.015 (1.002-1.036)
[2017-11-01 17:52] LABS: Bacteria/HPF None Seen HPF (None Seen); Hyaline Casts/LPF 0-3 HYALINE CAST LPF (0-3 Hyaline); Pathc Cast-AUWi Flag 0.14 (0-2.49); RBC/HPF 0-3 HPF (0-3); Squamous Epithelial None Seen HPF (0-3); WBC/HPF None Seen HPF (0-3)
[2017-11-01] MEDS ORDERED: Vancomycin HCl 1.75 GM in Sodium Chloride 0.9% 500 ML IVPB SCH (18:15)
[2017-11-01] MEDS ORDERED: Acetaminophen 500 MG TAB ONE (19:11)
[2017-11-01] MEDS ORDERED: Piperacillin/Tazobactam 4.5 GM VIAL ONE (20:51)
[2017-11-01] MEDS ORDERED: Dextrose 5% in Water 1,000 ML IV PRN (21:42)
[2017-11-01] MEDS ORDERED: Dextrose 50% Abboject 50 ML SYRINGE SLOW IVP PRN (21:42)
[2017-11-01] MEDS ORDERED: Cetirizine HCl 10 MG TAB PO PRN (21:52)
[2017-11-01] MEDS ORDERED: PROVENTIL INHALER 6.7 G (200 INHALATIONS) INH PRN (21:52)
[2017-11-01] MEDS ORDERED: Acetaminophen 325 MG TAB PO PRN (21:54)
[2017-11-01 22:11] VITALS: BMI 35.6
[2017-11-01] MEDS: Zolpidem Tartrate 5 MG TAB PO PRN (22:51)
[2017-11-01] MEDS ORDERED: Morphine ER 15 MG TAB PO SCH (23:15)
[2017-11-02] MEDS: Piperacillin/Tazobactam 3.375 GM in Sodium Chloride 0.9% 100 ML IVPB SCH ×4 (01:59→21:46)
[2017-11-02 04:54] LABS: #Lymphocytes 1.6 thou/uL (1.20-3.40); #Monocytes 1.1 thou/uL (0.11-0.59); #Neutrophils 6.5 thou/uL (1.40-6.50); %Basophils 0.1 % (0.0-1.0); %Eosinophils 0.3 % (0.0-10.0); %Lymphocytes 16.8 % (21.0-51.0); %Monocytes 12.4 % (0.0-10.0); %Neutrophils 70.4 % (42.0-75.0); Hemoglobin 11.1 g/dL (14.0-18.0); Mean Corpuscular HGB CONC 35.3 g/dL (32.0-36.0); Mean Corpuscular Hemoglobin 30.5 pg (27.0-31.0); Mean Corpuscular Volume 86.4 fL (78.0-98.0); Mean Platelet Volume 7.3 fL (7.4-10.4); Platelet Count 179 thou/uL (130-400); Red Blood Cell (RBC) Count 3.65 mill/uL (4.70-6.10); White Blood Cell (WBC) Count 9.2 thou/uL (4.8-10.8)
[2017-11-02 05:11] LABS: Anion Gap 15 mmol/L (10-20); BUN (Urea Nitrogen) 15 mg/dL (8.4-25.7); Calc. Creatinine Clearance 99 mL/min (70-130); Calcium 8.8 mg/dL (7.8-10.44); Carbon Dioxide 22 mmol/L (22-29); Chloride 99 mmol/L (98-107); Estimated GFR-MDRD 56; Glucose 111 mg/dL (70-105); Potassium 4.1 mmol/L (3.5-5.1); Sodium 132 mmol/L (136-145)
--- NOTE | 2017-11-02 05:14 | HP ---
TIME OF EVALUATION: 9:10 p.m. CODE STATUS: FULL CODE. PRIMARY CARE PHYSICIAN: Dr. Welch. CHIEF COMPLAINT: Worsening of the right great toe cellulitis. HISTORY OF PRESENT ILLNESS: This is a 57-year-old male patient. The patient has past medical histor y of diabetes with complication. The patient has surgical procedure recently done from the right gre at toe and has been follow with antibiotics and wound care. This was done earlier this year. Patien t has reported fever, worsening swelling, the wound has gotten worse to the point the patient is at r isk of possible amputation of the toe, outpatient treatment has not been working. Patient also repor carol having some chills. Symptoms are severe. REVIEW OF SYSTEMS: Constitutional: The patient has fever, chills, generalized weakness. Respirator y: No cough, sputum production, or shortness of breath. Cardiovascular: No chest pain, palpitation , or shortness of breath. Gastrointestinal: No nausea, vomiting, diarrhea, or abdominal pain. Cent ral Nervous Systems: No dizziness, headache, or feeling lightheaded. Genitourinary: No burning on urination. Extremities: The patient has right great toe nonhealing ulcer with pain. All other syst ems were reviewed and negative except for the findings mentioned above. PAST MEDICAL HISTORY: Diabetes, coronary artery disease with acute CA in 2009, hyperlipidemia, high cholesterol, hypertension, asthma. PAST SURGICAL HISTORY: Hernia repair, cholecystectomy, previous right great toe wound surgery. PSYCHIATRIC HISTORY: No suicidal ideation, no suicidal attempts. SOCIAL HISTORY: The patient uses tobacco. KNOWN ALLERGIES: MUSHROOMS. No known drug allergies. REPORTED MEDICATIONS: Morphine, glipizide, lisinopril, metformin, Onglyza, simvastatin, aspirin, flu oxetine, Lantus, Zenpep, Ventolin, Advair, Medrol, Zithromax. PHYSICAL EXAMINATION: VITAL SIGNS: Blood pressure 151/69 with heart rate of 102, respiratory rate 20, temperature 99.9, pa in 8, O2 saturation 95 on room air. GENERAL APPEARANCE: The patient is alert, oriented, in no any acute distress. HEAD AND EYES: Normal conjunctivae. Moist oral mucosa. Anicteric. NECK: No JVD. RESPIRATORY: Bilateral air entry. No rales, no wheezing. Symmetric expansion. CARDIOVASCULAR: Normal rate, regular rhythm. No murmurs, no gallop. No edema. ABDOMEN: Soft, normal bowel sounds. MUSCULOSKELETAL: Baseline range of motion and strength. No tenderness except for the right great to e. The patient has nonhealing ulcer, redness, swelling, tenderness in the leg, is also red with redn ess spreading proximally. SKIN: Warm and intact. No pallor, no rash, no redness except for the findings as described in muscu loskeletal. NEUROLOGIC: Baseline sensorium. No evidence of any new focal weakness. Neuropathy pain in the righ t ulcer area. PSYCHIATRIC: The patient is in a good mood. No anxiety. Oriented. Optimal judgment. IMAGING: A foot x-ray was done, the patient has evidence of osteotomy of the first digit at right si de, prominence soft tissue of the great toe correlate clinically, osseous irregularity in the residua l osseous structures on the great toe could relate to postoperative changes of a possibility of super imposed osteomyelitis is not excluded. LABORATORY DATA: Reviewed. The patient has white count 11.7, hemoglobin 12.7, MCV 86, platelet coun t 182,000. Sodium 138, potassium 4.5, chloride 95, carbon dioxide was 22, anion gap 16, creatinine 1 .43, previous creatinine was 1.2, glucose was normal. Lactic acid was normal. ASSESSMENT AND PLAN: The patient was placed in the hospital for following medical problems: 1. Right great toe nonhealing diabetic ulcer, patient has failed outpatient treatment. Patient will be placed on broad spectrum antibiotics, may need surgery, Infectious Disease, and wound care in the morning. The patient is in a high risk of amputation. Follow cultures. Adjust treatment as needed . 2. Increase in BUN and creatinine. No criteria for acute kidney injury. We will monitor. It could be secondary to sepsis versus prerenal. We will adjust treatment as needed. 3. Uncontrolled diabetes. Blood sugar 158. Reconcile home meds for optimal control. 4. Hyponatremia with sodium 128, this is moderate. We will monitor. We will adjust treatment as ne eded. 5. Chronic pain. Patient's home medications have been reconciled. Patient needed opioid medication s IV for optimal control. At this point, the patient hydrated risk for complications. 6. History of coronary artery disease, this problem is chronic, seems to be stable. Reconcile home medications. 7. History of hyperlipidemia. Reconcile home medications. Low cholesterol diet is advised. 8. Deep venous thrombosis prophylaxis.
[2017-11-02] MEDS: Sodium Chloride 0.9% 1,000 ML IV SCH ×2 (05:45→14:45)
[2017-11-02] MEDS: Vancomycin HCl 1.75 GM in Sodium Chloride 0.9% 500 ML IVPB SCH ×2 (05:45→18:17)
[2017-11-02] MEDS: Morphine ER 15 MG TAB PO SCH ×3 (05:46→21:45)
[2017-11-02] MEDS: Mometasone/Formoterol 120 PUFF INHALER INH SCH ×2 (07:18→18:52)
[2017-11-02] MEDS: Pancrelipase DR 12000 1 CAP PO SCH ×4 (08:46→20:21)
[2017-11-02] MEDS: FLUoxetine HCl 20 MG CAP PO SCH (08:46)
[2017-11-02] MEDS: Aripiprazole 2 MG TAB PO SCH (08:46)
[2017-11-02] MEDS: Enoxaparin Sodium 40 MG/0.4 ML SYRINGE SC SCH (08:46)
[2017-11-02] MEDS ORDERED: Milk Of Magnesia 30 ML UDCUP PO PRN (11:07)
[2017-11-02] MEDS ORDERED: Loperamide HCl 2 MG CAP PO PRN (11:07)
[2017-11-02] MEDS ORDERED: Loratadine 10 MG TAB PO PRN (11:07)
[2017-11-02] MEDS ORDERED: Eucerin (Mineral Oil/Petrolatum,White) 30 gm Jar TOP PRN (11:07)
[2017-11-02] MEDS ORDERED: hydrALAZINE 20 MG/ML VIAL SLOW IVP PRN (11:07)
[2017-11-02] MEDS ORDERED: Famotidine 20 MG TAB PO PRN (11:07)
[2017-11-02] MEDS ORDERED: Chloraseptic Spray 180 ml Bottle PO PRN (11:07)
[2017-11-02] MEDS ORDERED: Artificial Tears 18 DROP/0.9 ML EA EYE PRN (11:07)
[2017-11-02] MEDS ORDERED: Senokot 8.6 MG TAB PO PRN (11:07)
[2017-11-02] MEDS ORDERED: Mag-Al 1200 mg/1200 mg/30 ML UDCUP PO PRN (11:07)
[2017-11-02] MEDS ORDERED: Metoclopramide HCl 10 MG/2 ML VIAL IVP PRN (11:07)
[2017-11-02] MEDS ORDERED: Sodium Chloride 0.65% Nasal 44 ML BOT EA NARE PRN (11:07)
[2017-11-02] MEDS ORDERED: Diabetic Tussin 200 MG/10 ML UDCUP PO PRN (11:07)
[2017-11-02] MEDS ORDERED: Ondansetron HCl/PF 4 MG/2 ML Vial IVP PRN (11:07)
[2017-11-02] MEDS ORDERED: Morphine 4 MG/ML VIAL SLOW IVP PRN (11:08)
[2017-11-02] MEDS ORDERED: Gadobenate Dimeglumine 529 MG/1 ML (20ML VIAL) ONE (12:09)
--- NOTE | 2017-11-02 12:11 | PDOC.PN ---
- Subjective Encounter Start Date: 11/02/17 Encounter Start Time: 09:15 -: old records requested/rev pt has pain in his left foot, no fever, Patient seen and examined. No overnight events - Objective Resuscitation Status: Resuscitation Status FULL:Full Resuscitation MAR Reviewed: Yes Vital Signs & Weight: Vital Signs (12 hours) Temp Pulse Resp BP Pulse Ox 11/02/17 11:58 99.0 F 117 H 18 117/74 97 11/02/17 08:00 98.3 F 85 18 121/77 96 11/02/17 03:56 98.3 F 93 18 125/77 95 11/02/17 00:20 98.3 F 86 18 108/63 95 Weight Weight 255 lb 14.4 oz I&O: 11/01/17 11/02/17 11/03/17 06:59 06:59 06:59 Intake Total 1641 Output Total 1050 Balance 591 Result Diagrams: 11/02/17 04:33 11/02/17 04:33 Additional Labs: Accuchecks 11/02/17 11/02/17 11/01/17 11:15 05:48 22:50 POC Glucose 196 H 105 158 H Radiology Reviewed by me: Yes Phys Exam - Physical Examination Constitutional: NAD HEENT: PERRLA, moist MMs, sclera anicteric Neck: no JVD, supple Respiratory: no wheezing, no rales, no rhonchi Cardiovascular: RRR, no significant murmur, no rub Gastrointestinal: soft, non-tender, no distention, positive bowel sounds obesity+ Musculoskeletal: pulses present right great toe draining pus, swelling+ Neurological: non-focal, normal sensation, moves all 4 limbs Lymphatic: no nodes Psychiatric: normal affect, A&O x 3 Skin: no rash, normal turgor Dx/Plan (1) Acute kidney failure Status: Acute Comment: improving (2) Hyponatremia Code(s): E87.1 - HYPO-OSMOLALITY AND HYPONATREMIA Status: Acute (3) Ulcer of right great toe due to diabetes mellitus Code(s): E11.621 - TYPE 2 DIABETES MELLITUS WITH FOOT ULCER; L97.519 - NON-PRS CHRONIC ULCER OTH PRT RIGHT FOOT W UNSP SEVERITY Status: Acute (4) Anemia, normocytic normochromic Code(s): D64.9 - ANEMIA, UNSPECIFIED Status: Chronic (5) Anxiety and depression Code(s): F41.8 - OTHER SPECIFIED ANXIETY DISORDERS Status: Chronic (6) COPD (chronic obstructive pulmonary disease) Status: Chronic Qualifiers: COPD type: chronic bronchitis (7) Chronic low back pain Code(s): M54.5 - LOW BACK PAIN; G89.29 - OTHER CHRONIC PAIN Status: Chronic Qualifiers: Back pain laterality: unspecified Sciatica presence: without sciatica Qualified Code(s): M54.5 - Low back pain; G89.29 - Other chronic pain; G89.29 - Other chronic pain (8) Diabetes type 2, controlled Code(s): E11.9 - TYPE 2 DIABETES MELLITUS WITHOUT COMPLICATIONS Status: Chronic Qualifiers: Diabetes mellitus ad terminal makeup operator insulin use: with half-way use Diabetes mellitus complication status: with unspecified complications Qualified Code(s) : E11.8 - Type 2 diabetes mellitus with unspecified complications; Z79.4 - skilled nursing (current) use of insulin; Z79.4 - skilled nursing (current) use of insulin; Z79.4 - terminal clerk (current) use of insulin; Z79.4 - terminal clerk (current) use of insulin (9) GERD (gastroesophageal reflux disease) Code(s): K21.9 - GASTRO-ESOPHAGEAL REFLUX DISEASE WITHOUT ESOPHAGITIS Status: Chronic Qualifiers: Esophagitis presence: esophagitis presence not specified Qualified Code(s) : K21.9 - Gastro-esophageal reflux disease without esophagitis (10) H/O chronic pancreatitis Code(s): Z87.19 - PERSONAL HISTORY OF OTHER DISEASES OF THE DIGESTIVE SYSTEM Status: Chronic (11) Hypertension Code(s): I10 - ESSENTIAL (PRIMARY) HYPERTENSION Status: Chronic Qualifiers: Hypertension type: essential hypertension Qualified Code(s): I10 - Essential (primary) hypertension (12) Obesity (BMI 30-39.9) Code(s): E66.9 - OBESITY, UNSPECIFIED Status: Chronic - Plan cont current plan of care, plan discussed w/ family, continue antibiotics * continue vancomycin and zosyn * today will do MRI foot * will consult general surgery for evaluation for I & D * medication reviewed as below * symptomatic treatment * morphin for pain control * home medication reconciled * follow on culture. Review of Systems - Review of Systems Constitutional: negative: fever, chills, sweats, weakness, malaise, other Eyes: negative: Pain, Vision Change, Conjunctivae Inflammation, Eyelid Inflammation, Redness, Other ENT: negative: Ear Pain, Ear Discharge, Nose Pain, Nose Discharge, Nose Congestion, Mouth Pain, Mouth Swelling, Throat Pain, Throat Swelling, Other Respiratory: negative: Cough, Dry, Shortness of Breath, Hemoptysis, SOB with Excertion, Pleuritic Pain, Sputum, Wheezing Cardiovascular: negative: chest pain, palpitations, orthopnea, paroxysmal nocturnal dyspnea, edema, light headedness, other Gastrointestinal: negative: Nausea, Vomiting, Abdominal Pain, Diarrhea, Constipation, Melena, Hematochezia, Other Genitourinary: negative: Dysuria, Frequency, Incontinence, Hematuria, Retention , Other Musculoskeletal: Foot Pain. negative: Neck Pain, Shoulder Pain, Arm Pain, Back Pain, Hand Pain, Leg Pain, Other - Medications/Allergies Allergies/Adverse Reactions: Allergies Allergy/AdvReac Type Severity Reaction Status Date / Time No Known Drug Allergies Allergy Verified 07/06/14 00:10 MUSHROOMS Allergy Severe Uncoded 07/06/14 00:10 Medications: Current Medications Acetaminophen (Tylenol) 650 mg PO Q4H PRN PRN Reason: Headache/Fever or Pain Last Admin: 11/02/17 10:42 Dose: 650 mg Hydrocodone Bitart/Acetaminophen (Jackson 5/325) 1 tab PO Q4H PRN PRN Reason: Moderate Pain (4-6) Al Hydroxide/Mg Hydroxide (Maalox) 15 ml PO Q4H PRN PRN Reason: Heartburn or Indigestion Albuterol Sulfate (Proventil Hfa) 2 puff INH Q4H PRN PRN Reason: SOB &/or Wheezing Lipase/Protease/Amylase (Zofia Dinh 30851) 1 cap PO QID-WM [facility] Last Admin: 11/02/17 11:24 Dose: 1 cap Aripiprazole (Abilify) 2 mg PO DAILY [facility] Last Admin: 11/02/17 08:46 Dose: 2 mg Artificial Tears (Tears Naturale) 0 drop EA EYE PRN PRN PRN Reason: Dry Eyes Aspirin (Aspirin Chewable) 81 mg PO DAILY [facility] Last Admin: 11/02/17 08:46 Dose: 81 mg Atorvastatin Calcium (Lipitor) 40 mg PO [facility] Cetirizine HCl (Zyrtec) 10 mg PO DAILY PRN PRN Reason: Allergies Dextrose/Water (Dextrose 50%) 25 gm SLOW IVP PRN PRN PRN Reason: Hypoglycemia Enoxaparin Sodium (Lovenox) 40 mg SC 0900 [facility] Last Admin: 11/02/17 08:46 Dose: 40 mg Famotidine (Pepcid) 20 mg PO BIDPRN PRN PRN Reason: Heartburn or Indigestion Fluoxetine HCl (Prozac) 80 mg PO DAILY [facility] Last Admin: 11/02/17 08:46 Dose: 80 mg Glucagon (Glucagon) 1 mg IM PRN PRN PRN Reason: Hypoglycemia Guaifenesin (Robitussin Sf) 200 mg PO Q4H PRN PRN Reason: Cough Hydralazine HCl (Apresoline) 10 mg SLOW IVP Q4H PRN PRN Reason: Systolic BP > 180 Piperacillin Sod/Tazobactam (Sod 3.375 gm/ Sodium Chloride) 100 mls @ 200 mls/ hr IVPB 0300,0900,1500,2100 [facility] Last Admin: 11/02/17 08:47 Dose: 100 mls Dextrose/Water (D5w) 1,000 mls @ 0 mls/hr IV .Q0M PRN; As Directed PRN Reason: Hypoglycemia Vancomycin HCl 1.75 gm/ Sodium (Chloride) 500 mls @ 250 mls/hr IVPB 0600,1800 [facility] Last Admin: 11/02/17 05:45 Dose: 500 mls Sodium Chloride (Normal Saline 0.9%) 1,000 mls @ 100 mls/hr IV .Q10H [facility] Last Admin: 11/02/17 05:45 Dose: 1,000 mls Insulin Human Lispro (Humalog) 0 units SC .MILD SLIDING SCALE PRN PRN Reason: Mild Correctional Scale Loperamide HCl (Imodium) 2 mg PO PRN PRN PRN Reason: Diarrhea/Loose Stools Loratadine (Claritin) 10 mg PO DAILYPRN PRN PRN Reason: Sinus Symptoms Magnesium Hydroxide (Milk Of Magnesium) 30 ml PO DAILYPRN PRN PRN Reason: Constipation Metoclopramide HCl (Reglan) 5 mg IVP Q4H PRN PRN Reason: Nausea Mineral Oil/White Petrolatum (Eucerin Cream) 0 gm TOP BIDPRN PRN PRN Reason: Dry Skin Mometasone Furoate/Formoterol Fumar (Dulera 100 Mcg/5 Mcg Inhaler) 2 puff INH BID-RT [facility] Last Admin: 11/02/17 07:18 Dose: 2 puff Morphine Sulfate (Ms Contin) 15 mg PO Q8HR [facility] Last Admin: 11/02/17 05:46 Dose: 15 mg Morphine Sulfate (Morphine) 4 mg SLOW IVP Q4H PRN PRN Reason: Pain Last Admin: 11/02/17 11:22 Dose: 4 mg Ondansetron HCl (Zofran) 4 mg IVP Q6H PRN PRN Reason: Nausea/Vomiting Pantoprazole Sodium (Protonix) 40 mg PO BID [facility] Last Admin: 11/02/17 08:47 Dose: 40 mg Phenol (Chloraseptic [place] 180 Ml Bot) 0 ml PO PRN PRN PRN Reason: Sore Throat Senna (Senokot) 2 tab PO HSPRN PRN PRN Reason: Constipation Sodium Chloride ([place] Nasal [place] 0.65%) 0 ml EA NARE QIDPRN PRN PRN Reason: Nasal Congestion Zolpidem Tartrate (Ambien) 10 mg PO HS PRN PRN Reason: Insomnia Last Admin: 11/01/17 22:51 Dose: 10 mg
--- NOTE | 2017-11-02 14:19 | MRI ---
MRI RIGHT FOOT WITH AND WITHOUT CONTRAST: Date: 11/02/17 HISTORY: Osteomyelitis. COMPARISON: Foot radiographs dated 11/01/17. FINDINGS: Evidence of recent osteotomy changes of the great toe proximal phalanx. There are erosions of the dis griffin phalanx space with loss of normal T1 signal. The distal phalanx tuft has normal marrow signal. There is susceptibility in the dorsal soft tissues of the great toe interphalangeal joint. Enhancemen t of the volar and plantar soft tissues of the great toe is severely poor and is unlikely remainder o f the forefoot. Chronic degenerative disease of the great toe metatarsal sesamoid joints. There is abnormal tenosynov ial fluid of the flexor hallucis longus extending from the distal phalanx to the metatarsal head. The re is subcutaneous gas and phlegmonous changes in the dorsal soft tissues of the osteotomy site. IMPRESSION: 1. Osteomyelitis of the great toe distal phalanx space with phlegmonous changes surrounding the grea t toe, as well as subcutaneous gas, which may be sequelae from recent osteotomy. 2. Lack of normal enhancement of the soft tissues surrounding the great toe. This can be a combinati on of vascular congestion from recent postoperative changes, although a component of gangrene is high ly suspicious. 3. Flexor hallucis longus tenosynovitis. This is likely infectious. POS: HÉCTOR
[2017-11-02] MEDS: HYDROcodone/Acetaminophen 5/325 mg Tablet PO PRN (18:17)
[2017-11-02] MEDS: Atorvastatin Calcium 40 MG TAB PO SCH (20:21)
[2017-11-02] MEDS: Zolpidem Tartrate 5 MG TAB PO PRN (20:21)
--- NOTE | 2017-11-02 22:03 | HP ---
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 He has diabetes, does not smoke, has palpable pedal pulses. The patien t is followed by Dr. Welch. He had a diabetic right great toe problem on the plantar aspect of the great toe for some time and saw a telephone order supervisor, Dr. Jeannette Caba and at the [facility] treating this for some time, the patient underwent a podiatric procedure for what he describes as amputation of the third bone of the right great toe. X-rays revealed osseous irregularities of the residual osseous structures of the great toe, possibly representing osteomyelitis or postoperative ch anges. Plain x-rays revealed changes of an osteotomy of the right great toe. The patient states guzman t since this operation, he has had problems with drainage from the surgical wound over the dorsum of the great toe. He developed a severe infection and his telephone order supervisor was not available and he saw Dr. Mia mayberry, who sent him to the emergency room. The patient, in the hospital, has been afebrile. His whi te count was 11 on admission, 9.2 this morning, hemoglobin 11. Patient underwent MRI scan this weeke nd right foot revealing osteomyelitis of the great toe, distal phalanx base with phlegmon, subcutaneo us gas and a deep infection. There is ecchymosis, redness, cellulitis involving the right great toe extending to the dorsum of the foot. Cultures obtained reveal MRSA. I have discussed with the patient has palpable pedal pulses. I discussed with the patient, his and daughter the recommendations for amputation of the right great toe as he has had a chronic proble m with this toe with the current infection, osteomyelitis, the most indicated procedure would be ampu tation of the great toe with wound VAC application healing secondarily and discharged home with oral antibiotics and outpatient wound care. The patient lives in [facility]. He would be best served by [facility] for outpatient wound care, VAC care and expect him to be discharged home m id-week with outpatient wound VAC and oral antibiotics for two weeks and follow up in my office in 2- 3 weeks. ALLERGIES: None. TOBACCO: Never. ALCOHOL: None. MEDICATIONS AT HOME: Insulin Glargine Humulin 130 units subQ as directed, aripiprazole 2 mg daily, n wayne spray azelastine daily, aspirin 81 mg a day, albuterol, Ventolin inhalers 2 puffs q.4 hours p.r. n., Prozac 80 mg a day, Nexium 40 mg a day, Zyrtec 10 mg p.r.n., lisinopril 25 mg a day, morphine sul fate 50 mg p.o. t.i.d., glipizide 10 mg p.o. b.i.d. a.c., zolpidem 10 mg at bedtime, testosterone gel daily, simvastatin 80 mg at bedtime, multivitamins daily, metformin 2000 mg p.o. at bedtime. PAST SURGICAL HISTORY: Right great toe surgery, cholecystectomy for biliary pancreatitis. Left ingu inal hernia repair in 1975, tonsillectomy. He was scheduled for colonoscopy and upper endoscopy in t he next week. Otherwise, has not had this in the past. PAST MEDICAL HISTORY: Diabetes mellitus, hypertension. FAMILY HISTORY: Noncontributory. REVIEW OF SYSTEMS: Ten point noncontributory. PHYSICAL EXAMINATION: VITAL SIGNS: Height 5 feet 11, 255 pounds, 35 BMI, 99 degrees, 117, 117/74, 18. HEENT: Unremarkable. LUNGS: Clear to auscultation. CARDIAC: Regular rate and rhythm without murmur or gallop. ABDOMEN: Soft, nontender, no masses. EXTREMITIES: Palpable femoral, popliteal, dorsalis pedis, posterior tibial pulses bilaterally. Righ t great toe cellulitis extending over the forefoot. There is an ulcer of the dorsum of the right gre at toe with purulent discharge and an opening approximately 1/2-3/4 cm in diameter. On probing this wound, it extends to the bone and undermines with necrotic tissue and purulent tissue. No ankle chetna a. LABORATORY DATA: White count 9, hemoglobin 11.1. Basic metabolic profile normal. Creatinine is sli ghtly elevated at 1.32, BUN 15, sodium 132. ASSESSMENT AND PLAN: 1. Diabetic infection, right great toe with osteomyelitis and MRSA infection. He has palpable pedal pulses. We would recommend amputation of the right great toe over the proximal phalanx, application of wound VAC and outpatient arrangements for wound VAC with the [employer] postoperative shoe periope ratively. He understands risks and benefits and consents. He agrees to this recommended procedure. 2. Diabetes mellitus. 3. Hypertension.
[2017-11-03] MEDS: Piperacillin/Tazobactam 3.375 GM in Sodium Chloride 0.9% 100 ML IVPB SCH ×4 (02:07→20:52)
[2017-11-03] MEDS: HYDROcodone/Acetaminophen 5/325 mg Tablet PO PRN ×3 (02:10→20:12)
[2017-11-03] MEDS: Sodium Chloride 0.9% 1,000 ML IV SCH ×4 (02:16→18:13)
[2017-11-03] MEDS: Morphine ER 15 MG TAB PO SCH ×3 (05:23→22:07)
[2017-11-03 06:24] LABS: Vancomycin, Trough 12.3 ug/mL
[2017-11-03] MEDS: Vancomycin HCl 1.75 GM in Sodium Chloride 0.9% 500 ML IVPB SCH ×2 (06:49→17:56)
[2017-11-03] MEDS: Mometasone/Formoterol 120 PUFF INHALER INH SCH ×2 (07:28→18:45)
[2017-11-03] MEDS: Aripiprazole 2 MG TAB PO SCH (09:31)
[2017-11-03] MEDS: Pancrelipase DR 12000 1 CAP PO SCH ×4 (09:31→20:12)
[2017-11-03] MEDS: Enoxaparin Sodium 40 MG/0.4 ML SYRINGE SC SCH (09:32)
[2017-11-03] MEDS: FLUoxetine HCl 20 MG CAP PO SCH (09:32)
--- NOTE | 2017-11-03 11:29 | PDOC.PN ---
- Subjective Encounter Start Date: 11/03/17 Encounter Start Time: 09:45 Patient seen and examined. No new complaints. No overnight events - Objective Resuscitation Status: Resuscitation Status FULL:Full Resuscitation MAR Reviewed: Yes Vital Signs & Weight: Vital Signs (12 hours) Temp Pulse Resp BP Pulse Ox 11/03/17 08:21 98.3 F 81 18 125/82 96 11/03/17 08:00 98.3 F 81 18 96 Weight Admit Weight 255 lb 14.4 oz Weight 255 lb 14.4 oz I&O: 11/02/17 11/03/17 11/04/17 06:59 06:59 06:59 Intake Total 1641 3861 Output Total 1050 1725 Balance 591 2136 Result Diagrams: 11/02/17 04:33 11/02/17 04:33 Additional Labs: Accuchecks 11/03/17 11/02/17 11/02/17 04:35 20:45 16:46 POC Glucose 175 H 238 H 111 H 11/02/17 11:15 POC Glucose 196 H Radiology Reviewed by me: Yes (MRI leg) Phys Exam - Physical Examination Constitutional: NAD HEENT: PERRLA, moist MMs, sclera anicteric Neck: no JVD, supple Respiratory: no wheezing, no rales, no rhonchi, clear to auscultation bilateral Cardiovascular: RRR, no significant murmur, no rub Gastrointestinal: soft, non-tender, no distention, positive bowel sounds Musculoskeletal: no edema, pulses present diabetic toe is covered with dressing Neurological: non-focal, normal sensation, moves all 4 limbs Lymphatic: no nodes Psychiatric: normal affect, A&O x 3 Skin: no rash, normal turgor Dx/Plan (1) Acute kidney failure Status: Acute Comment: improving (2) Bacteremia due to methicillin resistant Staphylococcus aureus Code(s): R78.81 - BACTEREMIA Status: Acute (3) Hyponatremia Code(s): E87.1 - HYPO-OSMOLALITY AND HYPONATREMIA Status: Acute (4) Osteomyelitis of toe of right foot Code(s): M86.9 - OSTEOMYELITIS, UNSPECIFIED Status: Acute (5) Ulcer of right great toe due to diabetes mellitus Code(s): E11.621 - TYPE 2 DIABETES MELLITUS WITH FOOT ULCER; L97.519 - NON-PRS CHRONIC ULCER OTH PRT RIGHT FOOT W UNSP SEVERITY Status: Acute (6) Anemia, normocytic normochromic Code(s): D64.9 - ANEMIA, UNSPECIFIED Status: Chronic (7) Anxiety and depression Code(s): F41.8 - OTHER SPECIFIED ANXIETY DISORDERS Status: Chronic (8) COPD (chronic obstructive pulmonary disease) Status: Chronic Qualifiers: COPD type: chronic bronchitis (9) Chronic low back pain Code(s): M54.5 - LOW BACK PAIN; G89.29 - OTHER CHRONIC PAIN Status: Chronic Qualifiers: Back pain laterality: unspecified Sciatica presence: without sciatica Qualified Code(s): M54.5 - Low back pain; G89.29 - Other chronic pain; G89.29 - Other chronic pain (10) Diabetes type 2, controlled Code(s): E11.9 - TYPE 2 DIABETES MELLITUS WITHOUT COMPLICATIONS Status: Chronic Qualifiers: Diabetes mellitus custodial insulin use: 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 Diabetes mellitus complication status: with unspecified complications Qualified Code(s) : E11.8 - Type 2 diabetes mellitus with unspecified complications; 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; Z79.4 - [facility] (current) use of insulin; 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; 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 (11) GERD (gastroesophageal reflux disease) Code(s): K21.9 - GASTRO-ESOPHAGEAL REFLUX DISEASE WITHOUT ESOPHAGITIS Status: Chronic Qualifiers: Esophagitis presence: esophagitis presence not specified Qualified Code(s) : K21.9 - Gastro-esophageal reflux disease without esophagitis (12) H/O chronic pancreatitis Code(s): Z87.19 - PERSONAL HISTORY OF OTHER DISEASES OF THE DIGESTIVE SYSTEM Status: Chronic (13) Hypertension Code(s): I10 - ESSENTIAL (PRIMARY) HYPERTENSION Status: Chronic Qualifiers: Hypertension type: essential hypertension Qualified Code(s): I10 - Essential (primary) hypertension (14) Obesity (BMI 30-39.9) Code(s): E66.9 - OBESITY, UNSPECIFIED Status: Chronic - Plan cont current plan of care, plan discussed w/ family, continue antibiotics * today plan for toe amputation * will repeat labs and blood culture * will consult dr diehl to decide about IV vs oral antibiotics on discharge * will need wound vac and wound care arrangement * medication reviewed as below * symptomatic treatment * pain controlled. * for now continue vancomycin and zosyn, eventually after final culture result, will dc zosyn Review of Systems - Review of Systems Eyes: negative: Pain, Vision Change, Conjunctivae Inflammation, Eyelid Inflammation, Redness, Other ENT: negative: Ear Pain, Ear Discharge, Nose Pain, Nose Discharge, Nose Congestion, Mouth Pain, Mouth Swelling, Throat Pain, Throat Swelling, Other Respiratory: negative: Cough, Dry, Shortness of Breath, Hemoptysis, SOB with Excertion, Pleuritic Pain, Sputum, Wheezing Cardiovascular: negative: chest pain, palpitations, orthopnea, paroxysmal nocturnal dyspnea, edema, light headedness, other Gastrointestinal: negative: Nausea, Vomiting, Abdominal Pain, Diarrhea, Constipation, Melena, Hematochezia, Other Genitourinary: negative: Dysuria, Frequency, Incontinence, Hematuria, Retention , Other Musculoskeletal: negative: Neck Pain, Shoulder Pain, Arm Pain, Back Pain, Hand Pain, Leg Pain, Foot Pain, Other Skin: negative: Rash, Lesions, Carl, Bruising, Other - Medications/Allergies Allergies/Adverse Reactions: Allergies Allergy/AdvReac Type Severity Reaction Status Date / Time No Known Drug Allergies Allergy Verified 07/06/14 00:10 MUSHROOMS Allergy Severe Uncoded 07/06/14 00:10 Medications: Current Medications Acetaminophen (Tylenol) 650 mg PO Q4H PRN PRN Reason: Headache/Fever or Pain Last Admin: 11/02/17 10:42 Dose: 650 mg Hydrocodone Bitart/Acetaminophen ([place] 5/325) 1 tab PO Q4H PRN PRN Reason: Moderate Pain (4-6) Last Admin: 11/03/17 09:33 Dose: 1 tab Al Hydroxide/Mg Hydroxide (Maalox) 15 ml PO Q4H PRN PRN Reason: Heartburn or Indigestion Albuterol Sulfate (Proventil Hfa) 2 puff INH Q4H PRN PRN Reason: SOB &/or Wheezing Lipase/Protease/Amylase (Zofia Dinh 28093) 1 cap PO QID-WM [facility] Last Admin: 11/03/17 09:31 Dose: 1 cap Aripiprazole (Abilify) 2 mg PO DAILY [facility] Last Admin: 11/03/17 09:31 Dose: 2 mg Artificial Tears (Tears Naturale) 0 drop EA EYE PRN PRN PRN Reason: Dry Eyes Aspirin (Aspirin Chewable) 81 mg PO DAILY [facility] Last Admin: 11/03/17 09:31 Dose: Not Given Atorvastatin Calcium (Lipitor) 40 mg PO HS [facility] Last Admin: 11/02/17 20:21 Dose: 40 mg Cetirizine HCl (Zyrtec) 10 mg PO DAILY PRN PRN Reason: Allergies Dextrose/Water (Dextrose 50%) 25 gm SLOW IVP PRN PRN PRN Reason: Hypoglycemia Enoxaparin Sodium (Lovenox) 40 mg SC 0900 [facility] Last Admin: 11/03/17 09:32 Dose: Not Given Famotidine (Pepcid) 20 mg PO BIDPRN PRN PRN Reason: Heartburn or Indigestion Fluoxetine HCl (Prozac) 80 mg PO DAILY [facility] Last Admin: 11/03/17 09:32 Dose: 80 mg Glucagon (Glucagon) 1 mg IM PRN PRN PRN Reason: Hypoglycemia Guaifenesin (Robitussin Sf) 200 mg PO Q4H PRN PRN Reason: Cough Hydralazine HCl (Apresoline) 10 mg SLOW IVP Q4H PRN PRN Reason: Systolic BP > 180 Piperacillin Sod/Tazobactam (Sod 3.375 gm/ Sodium Chloride) 100 mls @ 200 mls/ hr IVPB 0300,0900,1500,2100 [facility] Last Admin: 11/03/17 09:33 Dose: 100 mls Dextrose/Water (D5w) 1,000 mls @ 0 mls/hr IV .Q0M PRN; As Directed PRN Reason: Hypoglycemia Vancomycin HCl 1.75 gm/ Sodium (Chloride) 500 mls @ 250 mls/hr IVPB 0600,1800 [facility] Last Admin: 11/03/17 06:49 Dose: 500 mls Sodium Chloride (Normal Saline 0.9%) 1,000 mls @ 100 mls/hr IV .Q10H [facility] Last Admin: 11/03/17 10:00 Dose: 1,000 mls Insulin Human Lispro (Humalog) 0 units SC .MILD SLIDING SCALE PRN PRN Reason: Mild Correctional Scale Loperamide HCl (Imodium) 2 mg PO PRN PRN PRN Reason: Diarrhea/Loose Stools Loratadine (Claritin) 10 mg PO DAILYPRN PRN PRN Reason: Sinus Symptoms Magnesium Hydroxide (Milk Of Magnesium) 30 ml PO DAILYPRN PRN PRN Reason: Constipation Metoclopramide HCl (Reglan) 5 mg IVP Q4H PRN PRN Reason: Nausea Mineral Oil/White Petrolatum (Eucerin Cream) 0 gm TOP BIDPRN PRN PRN Reason: Dry Skin Mometasone Furoate/Formoterol Fumar (Dulera 100 Mcg/5 Mcg Inhaler) 2 puff INH BID-RT [facility] Last Admin: 11/03/17 07:28 Dose: 2 puff Morphine Sulfate (Ms Contin) 15 mg PO Q8HR [facility] Last Admin: 11/03/17 05:23 Dose: 15 mg Morphine Sulfate (Morphine) 4 mg SLOW IVP Q4H PRN PRN Reason: Pain Last Admin: 11/02/17 11:22 Dose: 4 mg Ondansetron HCl (Zofran) 4 mg IVP Q6H PRN PRN Reason: Nausea/Vomiting Pantoprazole Sodium (Protonix) 40 mg PO BID [facility] Last Admin: 11/03/17 09:33 Dose: 40 mg Phenol (Chloraseptic [place] 180 Ml Bot) 0 ml PO PRN PRN PRN Reason: Sore Throat Senna (Senokot) 2 tab PO HSPRN PRN PRN Reason: Constipation Sodium Chloride ([place] Nasal [place] 0.65%) 0 ml EA NARE QIDPRN PRN PRN Reason: Nasal Congestion Zolpidem Tartrate (Ambien) 10 mg PO HS PRN PRN Reason: Insomnia Last Admin: 11/02/17 20:21 Dose: 10 mg
[2017-11-03] MEDS ORDERED: Fentanyl 100 MCG/2 ML VIAL ONE (12:27)
[2017-11-03] MEDS ORDERED: Acetaminophen 500 MG TAB PO PRN (13:18)
[2017-11-03] MEDS ORDERED: Ondansetron HCl/PF 4 MG/2 ML Vial IVP PRN (13:25)
[2017-11-03] MEDS ORDERED: Promethazine HCl 25 MG/ML VIAL IM PRN (13:25)
[2017-11-03] MEDS ORDERED: Promethazine HCl 25 MG/ML VIAL SLOW IVP PRN (13:25)
--- NOTE | 2017-11-03 13:25 | OP ---
DATE OF PROCEDURE: 11/03/2017 PREOPERATIVE DIAGNOSIS: Diabetic infection, osteomyelitis, right great toe. POSTOPERATIVE DIAGNOSIS: Diabetic infection, osteomyelitis, right great toe. PROCEDURE: Amputation of right great toe to the proximal phalanx wound, left open to heal by second intention. Wound care team placed a wound VAC, general anesthesia. Good blood supply cautery requir ed. SURGEON: Nilson Soto M.D. PROCEDURE IN DETAIL: Patient was taken to the operating room where under general anesthesia, right l ower extremity was prepared with ChloraPrep, draped in routine fashion. Incision was made for amputa tion of the right great toe, amputating the open wound over the dorsum of the toe, preserving skin po steriorly, carried down to the skin and subcutaneous tissue, excising the gangrenous skin and soft ti ssue and connective tissue, amputating the proximal phalanx, mid phalanx, resecting proximally with a rongeur. Hemostasis gained with cautery. Culture submitted to Pathology. Good hemostasis noted an d obtained with the cautery. Wound irrigated. Wound care team arrived to place a wound VAC. Patien t tolerated the procedure well.
[2017-11-03] MEDS ORDERED: PROPOFOL 200 MG/20 ML VIAL ONE (15:01)
[2017-11-03] MEDS ORDERED: Ondansetron HCl/PF 4 MG/2 ML Vial ONE (15:01)
[2017-11-03] MEDS ORDERED: Lidocaine 1% PF 5 ML VIAL ONE (15:01)
--- NOTE | 2017-11-03 15:47 | CON ---
DATE OF CONSULTATION: 11/03/2017 REASON FOR CONSULTATION: Right first toe osteomyelitis. HISTORY OF PRESENT ILLNESS: A 57-year-old who has a history of type 2 diabetes mellitus, coronary ar derik disease and alcoholism, prior episode of pancreatitis who apparently had an outpatient surgical procedure in his right great toe following which he was treated with antimicrobials and wound care. I do not have records from this procedure and I could not find any such records in this hospital, so it must have been done elsewhere. He developed worsening inflammatory changes and he was admitted. He just had a toe amputation, I believe at the first ray level by Dr. Soto. Currently, he denies a ny headaches, no visual symptoms, sore throat, odynophagia, dysphagia, no cough or sputum production or chest pain, no abdominal pain or diarrhea, no genitourinary symptoms, no joint symptoms outside th e area of involvement. PAST MEDICAL AND SURGICAL HISTORY: Type 2 diabetes, coronary artery disease, prior PR, hyperlipidemi a, hypertension, asthma and recent surgical procedure done elsewhere in the right first toe. SOCIAL HISTORY: He dips tobacco, but does not smoke. ALLERGIES: No drug allergies noted. CURRENT MEDICATIONS: Acetaminophen, albuterol, lipase, pancrease, aripiprazole, aspirin, cetirizine, famotidine, glucagon, insulin, Zosyn, and vancomycin. FAMILY HISTORY: Noncontributory. PHYSICAL EXAMINATION: VITAL SIGNS: T-max 99.5, blood pressure 120/80, pulse 81, respirations 18, O2 sat 96%. SKIN: Noticeable areas of inflammatory change in the right first toe with an ulcerated area. There is some blistering in the periungual region of the medial aspect, somewhat hemorrhagic blister. Ther e is another blister in yellow, more proximally located in the lateral aspect of the toe. He has a p eripheral IV access and he is voiding spontaneously without need for catheter. HEENT: No lymphadenopathy. Ocular movements conjugate. Oral cavity unremarkable. NECK: Supple. LUNGS: With symmetric clear breath sounds. HEART: S1, S2, regular rate without murmurs. ABDOMEN: Soft, not distended or tender. No ascites. No bladder distention. EXTREMITIES: Pulses are 1+ in popliteals. No edema. Dorsalis pedis 1+. NEUROLOGIC: Nonfocal. Cognitive function appears to be intact. LABORATORY DATA AND IMAGING: White cell count 11.7 down to 9.2, hemoglobin 11, platelets 179, neutro destiny percentage 81 down to 70%. Chemistry results: Sodium 132, creatinine 1.32 with normal liver pr ofile, albumin 4.1. Urinalysis with trace blood. Microbiology: MRSA with one set of venous sample blood culture, we do not have any samples from the toe. The patient had an MRI done in the right jimi t and it demonstrated an osteomyelitis of the great toe distal phalanx with phlegmonous changes surro unding the great toe, subcutaneous gas. ASSESSMENT: Type 2 diabetes with a recent surgical procedure in the right great toe with recrudescen ce of inflammatory changes status post ray amputation of the first toe. The patient is bacteremic wi th methicillin-resistant Staphylococcus aureus and we will need to continue antimicrobial therapy at least for 2 weeks in the outpatient setting, PICC line placement. We will follow the margin of clear ance of the amputation site and assume that it is going to be adequate. He does have adequate vascul ar supply per clinical examination and should be able to heel the amputation site well. We will not have cultures from the site, but if the removal was complete, then we should continue just with vanco mycin in the outpatient setting.
[2017-11-03 17:20] LABS: Vancomycin, Trough 16.2 ug/mL
[2017-11-03] MEDS: HumaLOG 300 UNITS/3 ML VIAL SC PRN (18:33)
[2017-11-03] MEDS: Atorvastatin Calcium 40 MG TAB PO SCH (20:12)
[2017-11-03] MEDS: Zolpidem Tartrate 5 MG TAB PO PRN (20:51)
[2017-11-04] MEDS: Piperacillin/Tazobactam 3.375 GM in Sodium Chloride 0.9% 100 ML IVPB SCH ×4 (02:43→22:19)
[2017-11-04 05:12] LABS: #Eosinphils 0.2 thou/uL (0.0-0.7); #Lymphocytes 1.5 thou/uL (1.20-3.40); #Monocytes 0.6 thou/uL (0.11-0.59); #Neutrophils 4.4 thou/uL (1.40-6.50); %Basophils 0.2 % (0.0-1.0); %Eosinophils 2.4 % (0.0-10.0); %Lymphocytes 22.1 % (21.0-51.0); %Monocytes 9.6 % (0.0-10.0); %Neutrophils 65.7 % (42.0-75.0); Hemoglobin 10.9 g/dL (14.0-18.0); Mean Corpuscular HGB CONC 34.5 g/dL (32.0-36.0); Mean Corpuscular Hemoglobin 30.4 pg (27.0-31.0); Mean Platelet Volume 7.3 fL (7.4-10.4); Platelet Count 182 thou/uL (130-400); RBC Distribution Width 12.1 % (11.5-14.5); Red Blood Cell (RBC) Count 3.59 mill/uL (4.70-6.10); White Blood Cell (WBC) Count 6.6 thou/uL (4.8-10.8)
[2017-11-04] MEDS: Morphine ER 15 MG TAB PO SCH ×3 (05:21→20:17)
[2017-11-04] MEDS: Vancomycin HCl 1.75 GM in Sodium Chloride 0.9% 500 ML IVPB SCH ×2 (05:23→18:31)
[2017-11-04] MEDS: HumaLOG 300 UNITS/3 ML VIAL SC PRN ×4 (05:23→20:18)
[2017-11-04 05:29] LABS: Anion Gap 14 mmol/L (10-20); BUN (Urea Nitrogen) 9 mg/dL (8.4-25.7); Calc. Creatinine Clearance 115 mL/min (70-130); Calcium 8.4 mg/dL (7.8-10.44); Carbon Dioxide 20 mmol/L (22-29); Chloride 101 mmol/L (98-107); Estimated GFR-MDRD 66; Glucose 218 mg/dL (70-105); Potassium 4.1 mmol/L (3.5-5.1); Sodium 131 mmol/L (136-145)
[2017-11-04] MEDS: Mometasone/Formoterol 120 PUFF INHALER INH SCH ×2 (06:34→18:44)
[2017-11-04] MEDS: Pancrelipase DR 12000 1 CAP PO SCH ×4 (08:55→20:17)
[2017-11-04] MEDS: Enoxaparin Sodium 40 MG/0.4 ML SYRINGE SC SCH (08:56)
[2017-11-04] MEDS: Aripiprazole 2 MG TAB PO SCH (08:56)
[2017-11-04] MEDS: FLUoxetine HCl 20 MG CAP PO SCH (08:57)
[2017-11-04] MEDS: HYDROcodone/Acetaminophen 5/325 mg Tablet PO PRN ×3 (08:59→23:36)
--- NOTE | 2017-11-04 12:56 | PDOC.PN ---
- Subjective Encounter Start Date: 11/04/17 Encounter Start Time: 10:15 Patient seen and examined. No new complaints. No overnight events - Objective Resuscitation Status: Resuscitation Status FULL:Full Resuscitation MAR Reviewed: Yes Vital Signs & Weight: Vital Signs (12 hours) Temp Pulse Resp BP Pulse Ox 11/04/17 08:00 98.4 F 76 14 95 11/04/17 06:34 76 14 96 11/04/17 04:41 98.9 F 74 18 129/84 95 Weight Admit Weight 255 lb 14.4 oz Weight 255 lb 14.4 oz I&O: 11/03/17 11/04/17 11/05/17 06:59 06:59 06:59 Intake Total 3861 2930 Output Total 1725 2705 Balance 2136 -845 Result Diagrams: 11/04/17 04:35 11/04/17 04:35 Additional Labs: Accuchecks 11/04/17 11/04/17 11/03/17 11:11 04:43 20:51 POC Glucose 208 H 215 H 186 H 11/03/17 16:40 POC Glucose 243 H Phys Exam - Physical Examination Constitutional: NAD HEENT: PERRLA, moist MMs, sclera anicteric Neck: no JVD, supple Respiratory: no wheezing, no rales, no rhonchi Cardiovascular: RRR, no significant murmur, no rub Gastrointestinal: soft, non-tender, no distention, positive bowel sounds Musculoskeletal: no edema, pulses present right foot with wound vac and dressing Neurological: non-focal, normal sensation, moves all 4 limbs Lymphatic: no nodes Psychiatric: normal affect, A&O x 3 Skin: no rash, normal turgor Dx/Plan (1) Acute kidney failure Status: Acute Comment: improving (2) Bacteremia due to methicillin resistant Staphylococcus aureus Code(s): R78.81 - BACTEREMIA Status: Acute (3) Hyponatremia Code(s): E87.1 - HYPO-OSMOLALITY AND HYPONATREMIA Status: Acute (4) Osteomyelitis of toe of right foot Code(s): M86.9 - OSTEOMYELITIS, UNSPECIFIED Status: Acute (5) Ulcer of right great toe due to diabetes mellitus Code(s): E11.621 - TYPE 2 DIABETES MELLITUS WITH FOOT ULCER; L97.519 - NON-PRS CHRONIC ULCER OTH PRT RIGHT FOOT W UNSP SEVERITY Status: Acute (6) Anemia, normocytic normochromic Code(s): D64.9 - ANEMIA, UNSPECIFIED Status: Chronic (7) Anxiety and depression Code(s): F41.8 - OTHER SPECIFIED ANXIETY DISORDERS Status: Chronic (8) COPD (chronic obstructive pulmonary disease) Status: Chronic Qualifiers: COPD type: chronic bronchitis (9) Chronic low back pain Code(s): M54.5 - LOW BACK PAIN; G89.29 - OTHER CHRONIC PAIN Status: Chronic Qualifiers: Back pain laterality: unspecified Sciatica presence: without sciatica Qualified Code(s): M54.5 - Low back pain; G89.29 - Other chronic pain; G89.29 - Other chronic pain (10) Diabetes type 2, controlled Code(s): E11.9 - TYPE 2 DIABETES MELLITUS WITHOUT COMPLICATIONS Status: Chronic Qualifiers: Diabetes mellitus longterm insulin use: with longterm use Diabetes mellitus complication status: with unspecified complications Qualified Code(s) : E11.8 - Type 2 diabetes mellitus with unspecified complications; Z79.4 - longterm (current) use of insulin; Z79.4 - watermaster (current) use of insulin; Z79.4 - longterm (current) use of insulin; Z79.4 - watermaster (current) use of insulin (11) GERD (gastroesophageal reflux disease) Code(s): K21.9 - GASTRO-ESOPHAGEAL REFLUX DISEASE WITHOUT ESOPHAGITIS Status: Chronic Qualifiers: Esophagitis presence: esophagitis presence not specified Qualified Code(s) : K21.9 - Gastro-esophageal reflux disease without esophagitis (12) H/O chronic pancreatitis Code(s): Z87.19 - PERSONAL HISTORY OF OTHER DISEASES OF THE DIGESTIVE SYSTEM Status: Chronic (13) Hypertension Code(s): I10 - ESSENTIAL (PRIMARY) HYPERTENSION Status: Chronic Qualifiers: Hypertension type: essential hypertension Qualified Code(s): I10 - Essential (primary) hypertension (14) Obesity (BMI 30-39.9) Code(s): E66.9 - OBESITY, UNSPECIFIED Status: Chronic - Plan cont current plan of care, 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 Review of Systems - Review of Systems Eyes: negative: Pain, Vision Change, Conjunctivae Inflammation, Eyelid Inflammation, Redness, Other ENT: negative: Ear Pain, Ear Discharge, Nose Pain, Nose Discharge, Nose Congestion, Mouth Pain, Mouth Swelling, Throat Pain, Throat Swelling, Other Respiratory: negative: Cough, Dry, Shortness of Breath, Hemoptysis, SOB with Excertion, Pleuritic Pain, Sputum, Wheezing Cardiovascular: negative: chest pain, palpitations, orthopnea, paroxysmal nocturnal dyspnea, edema, light headedness, other Gastrointestinal: negative: Nausea, Vomiting, Abdominal Pain, Diarrhea, Constipation, Melena, Hematochezia, Other Genitourinary: negative: Dysuria, Frequency, Incontinence, Hematuria, Retention , Other Musculoskeletal: negative: Neck Pain, Shoulder Pain, Arm Pain, Back Pain, Hand Pain, Leg Pain, Foot Pain, Other - Medications/Allergies Allergies/Adverse Reactions: Allergies Allergy/AdvReac Type Severity Reaction Status Date / Time No Known Drug Allergies Allergy Verified 07/06/14 00:10 MUSHROOMS Allergy Severe Uncoded 07/06/14 00:10 Medications: Current Medications Acetaminophen (Tylenol) 650 mg PO Q4H PRN PRN Reason: Headache/Fever or Pain Last Admin: 11/02/17 10:42 Dose: 650 mg Acetaminophen (Tylenol) 1,000 mg PO Q6H PRN PRN Reason: Moderate to Severe Pain (6-10) Hydrocodone Bitart/Acetaminophen ([place] 5/325) 1 tab PO Q4H PRN PRN Reason: Moderate Pain (4-6) Last Admin: 11/04/17 08:59 Dose: 1 tab Al Hydroxide/Mg Hydroxide (Maalox) 15 ml PO Q4H PRN PRN Reason: Heartburn or Indigestion Albuterol Sulfate (Proventil Hfa) 2 puff INH Q4H PRN PRN Reason: SOB &/or Wheezing Lipase/Protease/Amylase (Zofia Dinh [address]) 1 cap PO QID-WM [facility] Last Admin: 11/04/17 08:55 Dose: 1 cap Aripiprazole (Abilify) 2 mg PO DAILY [facility] Last Admin: 11/04/17 08:56 Dose: 2 mg Artificial Tears (Tears Naturale) 0 drop EA EYE PRN PRN PRN Reason: Dry Eyes Aspirin (Aspirin Chewable) 81 mg PO DAILY [facility] Last Admin: 11/04/17 08:56 Dose: Not Given Atorvastatin Calcium (Lipitor) 40 mg PO HS [facility] Last Admin: 11/03/17 20:12 Dose: 40 mg Cetirizine HCl (Zyrtec) 10 mg PO DAILY PRN PRN Reason: Allergies Dextrose/Water (Dextrose 50%) 25 gm SLOW IVP PRN PRN PRN Reason: Hypoglycemia Enoxaparin Sodium (Lovenox) 40 mg SC 0900 [facility] Last Admin: 11/04/17 08:56 Dose: Not Given Famotidine (Pepcid) 20 mg PO BIDPRN PRN PRN Reason: Heartburn or Indigestion Fluoxetine HCl (Prozac) 80 mg PO DAILY [facility] Last Admin: 11/04/17 08:57 Dose: 80 mg Glucagon (Glucagon) 1 mg IM PRN PRN PRN Reason: Hypoglycemia Guaifenesin (Robitussin Sf) 200 mg PO Q4H PRN PRN Reason: Cough Hydralazine HCl (Apresoline) 10 mg SLOW IVP Q4H PRN PRN Reason: Systolic BP > 180 Piperacillin Sod/Tazobactam (Sod 3.375 gm/ Sodium Chloride) 100 mls @ 200 mls/ hr IVPB 0300,0900,1500,2100 [facility] Last Admin: 11/04/17 08:57 Dose: 100 mls Dextrose/Water (D5w) 1,000 mls @ 0 mls/hr IV .Q0M PRN; As Directed PRN Reason: Hypoglycemia Vancomycin HCl 1.75 gm/ Sodium (Chloride) 500 mls @ 250 mls/hr IVPB 0600,1800 [facility] Last Admin: 11/04/17 05:23 Dose: 500 mls Insulin Human Lispro (Humalog) 0 units SC .MILD SLIDING SCALE PRN PRN Reason: Mild Correctional Scale Last Admin: 11/04/17 05:23 Dose: 3 unit Loperamide HCl (Imodium) 2 mg PO PRN PRN PRN Reason: Diarrhea/Loose Stools Loratadine (Claritin) 10 mg PO DAILYPRN PRN PRN Reason: Sinus Symptoms Magnesium Hydroxide (Milk Of Magnesium) 30 ml PO DAILYPRN PRN PRN Reason: Constipation Metoclopramide HCl (Reglan) 5 mg IVP Q4H PRN PRN Reason: Nausea Mineral Oil/White Petrolatum (Eucerin Cream) 0 gm TOP BIDPRN PRN PRN Reason: Dry Skin Mometasone Furoate/Formoterol Fumar (Dulera 100 Mcg/5 Mcg Inhaler) 2 puff INH BID-RT [facility] Last Admin: 11/04/17 06:34 Dose: 2 puff Morphine Sulfate (Ms Contin) 15 mg PO Q8HR [facility] Last Admin: 11/04/17 05:21 Dose: 15 mg Morphine Sulfate (Morphine) 4 mg SLOW IVP Q4H PRN PRN Reason: Pain Last Admin: 11/02/17 11:22 Dose: 4 mg Ondansetron HCl (Zofran) 4 mg IVP Q6H PRN PRN Reason: Nausea/Vomiting Pantoprazole Sodium (Protonix) 40 mg PO BID [facility] Last Admin: 11/04/17 08:57 Dose: 40 mg Phenol (Chloraseptic [place] 180 Ml Bot) 0 ml PO PRN PRN PRN Reason: Sore Throat Senna (Senokot) 2 tab PO HSPRN PRN PRN Reason: Constipation Sodium Chloride ([place] Nasal [place] 0.65%) 0 ml EA NARE QIDPRN PRN PRN Reason: Nasal Congestion Zolpidem Tartrate (Ambien) 10 mg PO HS PRN PRN Reason: Insomnia Last Admin: 11/03/17 20:51 Dose: 10 mg
--- NOTE | 2017-11-04 18:37 | PRG ---
DATE OF SERVICE: 11/04/2017 Jean Recinos is doing well today. He underwent amputation of his right great toe to the proximal phal anx yesterday. Wound VAC is in place. He is afebrile. White count 6, hemoglobin 10.9. Cultures MRSA. Wound VAC in place. ASSESSMENT AND PLAN: Expect discharge home on Zyvox midweek and outpatient wound VAC. Follow up in my office in 2-3 weeks.
[2017-11-04] MEDS: Atorvastatin Calcium 40 MG TAB PO SCH (20:16)
[2017-11-04] MEDS: Zolpidem Tartrate 5 MG TAB PO PRN (20:21)
[2017-11-05] MEDS: Piperacillin/Tazobactam 3.375 GM in Sodium Chloride 0.9% 100 ML IVPB SCH (03:55)
[2017-11-05] MEDS: Morphine ER 15 MG TAB PO SCH ×3 (05:43→21:00)
[2017-11-05] MEDS: Vancomycin HCl 1.75 GM in Sodium Chloride 0.9% 500 ML IVPB SCH ×2 (05:43→17:40)
[2017-11-05] MEDS: Mometasone/Formoterol 120 PUFF INHALER INH SCH ×2 (05:52→18:41)
[2017-11-05] MEDS: Aripiprazole 2 MG TAB PO SCH (08:16)
[2017-11-05] MEDS: Pancrelipase DR 12000 1 CAP PO SCH ×4 (08:16→21:00)
[2017-11-05] MEDS: Enoxaparin Sodium 40 MG/0.4 ML SYRINGE SC SCH (08:17)
[2017-11-05] MEDS: FLUoxetine HCl 20 MG CAP PO SCH (08:17)
[2017-11-05] MEDS: HYDROcodone/Acetaminophen 5/325 mg Tablet PO PRN ×2 (08:24→17:43)
[2017-11-05] MEDS: HumaLOG 300 UNITS/3 ML VIAL SC PRN ×4 (11:23→17:06)
--- NOTE | 2017-11-05 11:55 | SPC ---
FLUOROSCOPIC GUIDED LEFT UPPER EXTREMITY PICC PLACEMENT: Date: 11/05/17 HISTORY: Osteomyelitis. FINDINGS: After explaining the procedure and answering all questions, the left upper extremity was prepped and draped in the usual sterile fashion. Sterile technique, buffered local anesthesia, fluoroscopic adán nce, and a 22 gauge needle were used to carefully access the left basilic vein. Standard technique wa s then used to place the tip of a 5 Italian dual lumen PICC so that the tip lies at the level of the r ight atrium. The catheter was flushed and secured externally. The patient tolerated the procedure wel l and was returned in good condition. Fluoro Time: 0 seconds. IMPRESSION: Left upper extremity PICC is ready for use. POS: HÉCTOR
--- NOTE | 2017-11-05 13:59 | PDOC.PN ---
- Subjective Encounter Start Date: 11/05/17 Encounter Start Time: 07:45 Patient seen and examined. No new complaints. No overnight events - Objective Resuscitation Status: Resuscitation Status FULL:Full Resuscitation MAR Reviewed: Yes Vital Signs & Weight: Vital Signs (12 hours) Temp Pulse Resp BP Pulse Ox 11/05/17 08:00 97.9 F 72 16 97 11/05/17 07:48 97.9 F 72 16 144/87 H 97 11/05/17 05:52 68 16 95 Weight Admit Weight 255 lb 14.4 oz Weight 255 lb 14.4 oz I&O: 11/04/17 11/05/17 11/06/17 06:59 06:59 06:59 Intake Total 5130 820 Output Total 3775 1200 Balance 1355 -380 Result Diagrams: 11/04/17 04:35 11/04/17 04:35 Additional Labs: Accuchecks 11/05/17 11/05/17 11/04/17 11:04 05:24 20:05 POC Glucose 206 H 115 H 162 H 11/04/17 16:25 POC Glucose 212 H Phys Exam - Physical Examination Constitutional: NAD HEENT: PERRLA, moist MMs, sclera anicteric Neck: no JVD, supple Respiratory: no wheezing, no rales, no rhonchi Cardiovascular: RRR, no significant murmur, no rub Gastrointestinal: soft, non-tender, no distention, positive bowel sounds Musculoskeletal: no edema, pulses present right foot with wound vac in place Neurological: non-focal, normal sensation Lymphatic: no nodes Psychiatric: normal affect, A&O x 3 Skin: no rash, normal turgor Dx/Plan (1) Acute kidney failure Status: Resolved Comment: (2) Bacteremia due to methicillin resistant Staphylococcus aureus Code(s): R78.81 - BACTEREMIA Status: Acute (3) Hyponatremia Code(s): E87.1 - HYPO-OSMOLALITY AND HYPONATREMIA Status: Acute (4) Osteomyelitis of toe of right foot Code(s): M86.9 - OSTEOMYELITIS, UNSPECIFIED Status: Acute (5) Ulcer of right great toe due to diabetes mellitus Code(s): E11.621 - TYPE 2 DIABETES MELLITUS WITH FOOT ULCER; L97.519 - NON-PRS CHRONIC ULCER OTH PRT RIGHT FOOT W UNSP SEVERITY Status: Acute (6) Anemia, normocytic normochromic Code(s): D64.9 - ANEMIA, UNSPECIFIED Status: Chronic (7) Anxiety and depression Code(s): F41.8 - OTHER SPECIFIED ANXIETY DISORDERS Status: Chronic (8) COPD (chronic obstructive pulmonary disease) Status: Chronic Qualifiers: COPD type: chronic bronchitis (9) Chronic low back pain Code(s): M54.5 - LOW BACK PAIN; G89.29 - OTHER CHRONIC PAIN Status: Chronic Qualifiers: Back pain laterality: unspecified Sciatica presence: without sciatica Qualified Code(s): M54.5 - Low back pain; G89.29 - Other chronic pain; G89.29 - Other chronic pain (10) Diabetes type 2, controlled Code(s): E11.9 - TYPE 2 DIABETES MELLITUS WITHOUT COMPLICATIONS Status: Chronic Qualifiers: Diabetes mellitus chcf insulin use: with intermission coordinator use Diabetes mellitus complication status: with unspecified complications Qualified Code(s) : E11.8 - Type 2 diabetes mellitus with unspecified complications; Z79.4 - prison (current) use of insulin; Z79.4 - terminal manager (current) use of insulin; Z79.4 - terminal manager (current) use of insulin; Z79.4 - prison (current) use of insulin (11) GERD (gastroesophageal reflux disease) Code(s): K21.9 - GASTRO-ESOPHAGEAL REFLUX DISEASE WITHOUT ESOPHAGITIS Status: Chronic Qualifiers: Esophagitis presence: esophagitis presence not specified Qualified Code(s) : K21.9 - Gastro-esophageal reflux disease without esophagitis (12) H/O chronic pancreatitis Code(s): Z87.19 - PERSONAL HISTORY OF OTHER DISEASES OF THE DIGESTIVE SYSTEM Status: Chronic (13) Hypertension Code(s): I10 - ESSENTIAL (PRIMARY) HYPERTENSION Status: Chronic Qualifiers: Hypertension type: essential hypertension Qualified Code(s): I10 - Essential (primary) hypertension (14) Obesity (BMI 30-39.9) Code(s): E66.9 - OBESITY, UNSPECIFIED Status: Chronic - Plan cont 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 Review of Systems - Review of Systems Eyes: negative: Pain, Vision Change, Conjunctivae Inflammation, Eyelid Inflammation, Redness, Other ENT: negative: Ear Pain, Ear Discharge, Nose Pain, Nose Discharge, Nose Congestion, Mouth Pain, Mouth Swelling, Throat Pain, Throat Swelling, Other Respiratory: negative: Cough, Dry, Shortness of Breath, Hemoptysis, SOB with Excertion, Pleuritic Pain, Sputum, Wheezing Cardiovascular: negative: chest pain, palpitations, orthopnea, paroxysmal nocturnal dyspnea, edema, light headedness, other Gastrointestinal: negative: Nausea, Vomiting, Abdominal Pain, Diarrhea, Constipation, Melena, Hematochezia, Other Genitourinary: negative: Dysuria, Frequency, Incontinence, Hematuria, Retention , Other Musculoskeletal: negative: Neck Pain, Shoulder Pain, Arm Pain, Back Pain, Hand Pain, Leg Pain, Foot Pain, Other Skin: negative: Rash, Lesions, Carl, Bruising, Other - Medications/Allergies Allergies/Adverse Reactions: Allergies Allergy/AdvReac Type Severity Reaction Status Date / Time No Known Drug Allergies Allergy Verified 07/06/14 00:10 MUSHROOMS Allergy Severe Uncoded 07/06/14 00:10 Medications: Current Medications Acetaminophen (Tylenol) 650 mg PO Q4H PRN PRN Reason: Headache/Fever or Pain Last Admin: 11/02/17 10:42 Dose: 650 mg Acetaminophen (Tylenol) 1,000 mg PO Q6H PRN PRN Reason: Moderate to Severe Pain (6-10) Hydrocodone Bitart/Acetaminophen ([place] 5/325) 1 tab PO Q4H PRN PRN Reason: Moderate Pain (4-6) Last Admin: 11/05/17 08:24 Dose: 1 tab Al Hydroxide/Mg Hydroxide (Maalox) 15 ml PO Q4H PRN PRN Reason: Heartburn or Indigestion Albuterol Sulfate (Proventil Hfa) 2 puff INH Q4H PRN PRN Reason: SOB &/or Wheezing Lipase/Protease/[place]ylase ([place] [id number]) 1 cap PO QID-WM [facility] Last Admin: 11/05/17 11:22 Dose: 1 cap Aripiprazole (Abilify) 2 mg PO DAILY [facility] Last Admin: 11/05/17 08:16 Dose: 2 mg Artificial Tears (Tears Naturale) 0 drop EA EYE PRN PRN PRN Reason: Dry Eyes Aspirin (Aspirin Chewable) 81 mg PO DAILY [facility] Last Admin: 11/05/17 08:16 Dose: 81 mg Atorvastatin Calcium (Lipitor) 40 mg PO HS [facility] Last Admin: 11/04/17 20:16 Dose: 40 mg Cetirizine HCl (Zyrtec) 10 mg PO DAILY PRN PRN Reason: Allergies Dextrose/Water (Dextrose 50%) 25 gm SLOW IVP PRN PRN PRN Reason: Hypoglycemia Enoxaparin Sodium (Lovenox) 40 mg SC 0900 [facility] Last Admin: 11/05/17 08:17 Dose: Not Given Famotidine (Pepcid) 20 mg PO BIDPRN PRN PRN Reason: Heartburn or Indigestion Fluoxetine HCl (Prozac) 80 mg PO DAILY [facility] Last Admin: 11/05/17 08:17 Dose: 80 mg Glucagon (Glucagon) 1 mg IM PRN PRN PRN Reason: Hypoglycemia Guaifenesin (Robitussin Sf) 200 mg PO Q4H PRN PRN Reason: Cough Hydralazine HCl (Apresoline) 10 mg SLOW IVP Q4H PRN PRN Reason: Systolic BP > 180 Dextrose/Water (D5w) 1,000 mls @ 0 mls/hr IV .Q0M PRN; As Directed PRN Reason: Hypoglycemia Vancomycin HCl 1.75 gm/ Sodium (Chloride) 500 mls @ 250 mls/hr IVPB 0600,1800 [facility] Last Admin: 11/05/17 05:43 Dose: 500 mls Insulin Human Lispro (Humalog) 0 units SC .MILD SLIDING SCALE PRN PRN Reason: Mild Correctional Scale Last Admin: 11/05/17 11:56 Dose: 3 unit Loperamide HCl (Imodium) 2 mg PO PRN PRN PRN Reason: Diarrhea/Loose Stools Loratadine (Claritin) 10 mg PO DAILYPRN PRN PRN Reason: Sinus Symptoms Magnesium Hydroxide (Milk Of Magnesium) 30 ml PO DAILYPRN PRN PRN Reason: Constipation Metoclopramide HCl (Reglan) 5 mg IVP Q4H PRN PRN Reason: Nausea Mineral Oil/White Petrolatum (Eucerin Cream) 0 gm TOP BIDPRN PRN PRN Reason: Dry Skin Mometasone Furoate/Formoterol Fumar (Dulera 100 Mcg/5 Mcg Inhaler) 2 puff INH BID-RT [facility] Last Admin: 11/05/17 05:52 Dose: 2 puff Morphine Sulfate (Ms Contin) 15 mg PO Q8HR [facility] Last Admin: 11/05/17 05:43 Dose: 15 mg Morphine Sulfate (Morphine) 4 mg SLOW IVP Q4H PRN PRN Reason: Pain Last Admin: 11/02/17 11:22 Dose: 4 mg Ondansetron HCl (Zofran) 4 mg IVP Q6H PRN PRN Reason: Nausea/Vomiting Pantoprazole Sodium (Protonix) 40 mg PO BID [facility] Last Admin: 11/05/17 08:16 Dose: 40 mg Phenol (Chloraseptic [place] 180 Ml Bot) 0 ml PO PRN PRN PRN Reason: Sore Throat Senna (Senokot) 2 tab PO HSPRN PRN PRN Reason: Constipation Sodium Chloride ([place] Nasal [place] 0.65%) 0 ml EA NARE QIDPRN PRN PRN Reason: Nasal Congestion Zolpidem Tartrate (Ambien) 10 mg PO HS PRN PRN Reason: Insomnia Last Admin: 11/04/17 20:21 Dose: 10 mg
[2017-11-05 17:33] LABS: Vancomycin, Trough 17.6 ug/mL
--- NOTE | 2017-11-05 17:35 | PRG ---
DATE OF SERVICE: 11/05/2017 HISTORY: Mr. Recinos is feeling well. Denies headaches, visual symptoms, sore throat, odynophagia, dys phagia, no back pain, no abdominal pain. He has a left foot dressing with negative pressure. PHYSICAL EXAMINATION: VITAL SIGNS: Normal. GENERAL: Awake, alert, oriented. LUNGS: Clear. HEART: S1, S2, regular rate. ABDOMEN: Soft, not distended. EXTREMITIES: Right foot with a negative pressure dressing which was not removed. LABORATORY DATA: White cell count 6.6, hemoglobin 10.9, platelets 182 and creatinine 1.14. Microbio logy with methicillin-resistant Staph aureus as noted previously. ASSESSMENT AND DISCUSSION: Type 2 diabetes and recent right great toe debridement with recrudescence inflammatory changes status post ray amputation of the right first toe. The patient is bacteremic o r has been bacteremic with MRSA and will need at least 2 weeks of IV vancomycin to complete treatment and avoid distant dissemination and readmission.
[2017-11-05] MEDS: Atorvastatin Calcium 40 MG TAB PO SCH (21:00)
[2017-11-06] MEDS: HumaLOG 300 UNITS/3 ML VIAL SC PRN ×3 (05:46→16:58)
[2017-11-06] MEDS: Vancomycin HCl 1.75 GM in Sodium Chloride 0.9% 500 ML IVPB SCH ×2 (05:46→16:59)
[2017-11-06] MEDS: Morphine ER 15 MG TAB PO SCH ×2 (05:46→14:35)
[2017-11-06] MEDS: Mometasone/Formoterol 120 PUFF INHALER INH SCH ×2 (06:56→19:05)
[2017-11-06 07:47] VITALS: BP 128/80; TEMP 97.8
[2017-11-06] MEDS: Aripiprazole 2 MG TAB PO SCH (07:53)
[2017-11-06] MEDS: FLUoxetine HCl 20 MG CAP PO SCH (07:53)
[2017-11-06] MEDS: Enoxaparin Sodium 40 MG/0.4 ML SYRINGE SC SCH (07:53)
[2017-11-06] MEDS: Pancrelipase DR 12000 1 CAP PO SCH ×3 (07:53→16:57)
[2017-11-06] MEDS: HYDROcodone/Acetaminophen 5/325 mg Tablet PO PRN ×3 (07:58→18:06)
--- NOTE | 2017-11-06 10:10 | PRG ---
DATE OF SERVICE: 11/06/2017 SUBJECTIVE: Mr. Jean Recinos is doing well today. Wound VAC will be changed tomorrow. Yesterday, hi s wound looked good. Blood cultures positive for MRSA. He has had a PICC line placed. The patient will go home with intravenous antibiotics. He can follow up in my office in 2-3 weeks. He can weigh tbear as tolerated using a postoperative shoe. 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 At this point, I will see him as needed. Please call if I am needed in his care of this hospitalization, otherwise I will see him in the office in 2-3 weeks.
--- NOTE | 2017-11-06 11:24 | PQF ---
CLINICAL DOCUMENTATION IMPROVEMENT CLARIFICATION FORM: ICD-10 Updated PLEASE DO AN ADDENDUM TO THE PROGRESS NOTE WITH ANY DOCUMENTATION UPDATES OR ADDITIONS AND CARRY THROUGH TO DC SUMMARY. THANK YOU. DATE: 11/06 ATTN: DR. TRINITY TRAN Please exercise your independent, professional judgment in responding to the clarification form. Clinical indicators are provided on the bottom of this form for your review. Please check appropriate box(s) to clarify if the following diagnosis has been ruled in or ruled out: SEPSIS [x ] Ruled in diagnosis [ x ] Continue to treat [ ] Resolved [ ] Ruled out diagnosis [ ] Other diagnosis [ ] Unable to determine For continuity of documentation, please document condition throughout progress notes and discharge summary. Thank You. CLINICAL INDICATORS - SIGNS / SYMPTOMS / LABS ER PRESENTATION 11/01: T: 103.2 HR: 102 RR: 22 WBC: 11.7 ATTENDING H&P 11/01: ASSESSMENT & PLAN: 1) R GREAT TOE NONHEALING DIABETIC ULCER, PATIENT HAS FAILED OUTPT TREATMENT; 2) INCREASE IN BUN/CR. NO CRITERIA FOR DOROTHY. IT COULD BE 2/2 SEPSIS VS PRERENAL NO FURTHER MENTION OF SEPSIS TO DATE ATTENDING PN 11/02 - PRESENT: DX/PLAN: 1) ACUTE KIDNEY FAILURE; PN 11/04: 2) BACTEREMIA D/T MRSA RISK FACTORS: MRSA BACTEREMIA (BLOOD CX ON ADMIT 11/01, 1 OF 2 POSITIVE) R GREAT TOE W/MRSA INFECTION (R TOE WOUND CULTURE, 11/03) TREATMENTS: R GREAT TOE AMPUTATION (11/03) INFECTIOUS DX CONSULT IV ANTIBIOTICS (ZOSYN & VANCOMYCIN) THANK YOU! Marlen (This form is maintained as a part of the permanent medical record) 2014 [employer]. All Rights Reserved Marlen Flores, RN, BSN [email or web address] Office: [phone] [facility]
--- NOTE | 2017-11-06 11:37 | PQF ---
CLINICAL DOCUMENTATION IMPROVEMENT CLARIFICATION FORM: ICD-10 Updated PLEASE DO AN ADDENDUM TO THE PROGRESS NOTE WITH ANY DOCUMENTATION UPDATES OR ADDITIONS AND CARRY THROUGH TO DC SUMMARY. THANK YOU. DATE: 11/06 ATTN: DR. TRINITY TRAN Please exercise your independent, professional judgment in responding to the clarification form. Clinical indicators are provided on the bottom of this form for your review. Please check appropriate box(s): [ ] R GREAT TOE NONHEALING DIABETIC ULCER is a complication of recent surgery completed earlier in the year. [ x ] R GREAT TOE NONHEALING DIABETIC ULCER is not a complication of recent surgery completed earlier in the year. [ ] Other diagnosis [ ] Unable to determine CLINICAL INDICATORS - SIGNS / SYMPTOMS / LABS ATTENDING H&P 11/01: HX PRESENT ILLNESS: THE PATIENT HAS SURGICAL PROCEDURE RECENTLY DONE FROM THE R GREAT TOE & HAS BEEN FOLLOWING WITH ANTIBIOTICS & WOUND CARE. THIS WAS DONE EARLIER THIS YEAR. PATIENT HAS REPORTED FEVER, WORSENING SWELLING, THE WOUND HAS GOTTEN WORSE TO THE POINT THE PATIENT IS AT RISK OF POSSIBLE AMPUTATION OF THE TOE. OUTPATIENT TREATMENT HAS NOT BEEN WORKING. SYMPTOMS ARE SEVERE. RLE MRI 11/02: IMPRESSION: 1) OSTEOMYELITIS OF THE GREAT TOE DISTAL PHALANX SPACE W/PHLEGMONOUS CHANGES SURROUNDING THE GREAT TOE, WELL SUBCUTANEOUS GAS, WHICH MAY BE SEQUELAE FROM RECENT OSTEOTOMY. 2) LACK OF NORMAL ENHANCEMENT OF THE SOFT TISSUES SURROUNDING THE GREAT TOE. THIS CAN BE A COMBINATION OF VASCULAR CONGESTION FROM RECENT POST-OP CHANGES, ALTHOUGH A COMPONENT OF GANGRENE IS HIGHLY SUSPICIOUS. 3) FLEXOR HALLUCIS LONGUS TENOSYNOVITIS. THIS IS LIKELY INFECTIOUS R GREAT TOE WOUND CX 11/03: MRSA RISK FACTORS: RECENT R TOE SURGERY COMPLETED EARLIER IN THE YEAR NONHEALING R GREAT TOE DIABETIC ULCER FAILED OUTPATIENT ANTIBIOTIC & WOUND CARE TREATMENT TREATMENT: R TREAT TOE AMPUTATION (11/03) IV ANTIBIOTICS (ZOSYN & VANCOMYCIN) THANK YOU! Marlen (This form is maintained as a part of the permanent medical record) 2014 [employer]. All Rights Reserved Marlen Flores RN, BSN [email or web address] Office: [phone] [facility]
--- NOTE | 2017-11-06 12:49 | PDOC.PN ---
- Subjective Encounter Start Date: 11/06/17 Encounter Start Time: 10:15 Patient seen and examined. No new complaints. No overnight events - Objective Resuscitation Status: Resuscitation Status FULL:Full Resuscitation MAR Reviewed: Yes Vital Signs & Weight: Vital Signs (12 hours) Temp Pulse Resp BP Pulse Ox 11/06/17 08:00 97.8 F 57 L 18 96 11/06/17 07:46 97.8 F 57 L 18 128/80 96 11/06/17 06:56 61 16 95 Weight Admit Weight 255 lb 14.4 oz Weight 255 lb 14.4 oz I&O: 11/05/17 11/06/17 11/07/17 06:59 06:59 06:59 Intake Total 820 2880 Output Total 1200 1100 Balance -380 1780 Result Diagrams: 11/04/17 04:35 11/04/17 04:35 Additional Labs: Accuchecks 11/06/17 11/06/17 11/05/17 11:08 04:58 22:12 POC Glucose 218 H 162 H 180 H 11/05/17 16:32 POC Glucose 187 H Phys Exam - Physical Examination Constitutional: NAD HEENT: PERRLA, moist MMs, sclera anicteric Neck: no JVD, supple Respiratory: no wheezing, no rales, no rhonchi Cardiovascular: RRR, no significant murmur, no rub Gastrointestinal: soft, non-tender, no distention, positive bowel sounds Musculoskeletal: no edema, pulses present left foot with wound vac in place Neurological: non-focal, normal sensation, moves all 4 limbs Psychiatric: normal affect, A&O x 3 Skin: no rash, normal turgor Dx/Plan (1) Acute kidney failure Status: Resolved Comment: (2) Bacteremia due to methicillin resistant Staphylococcus aureus Code(s): R78.81 - BACTEREMIA Status: Acute (3) Hyponatremia Code(s): E87.1 - HYPO-OSMOLALITY AND HYPONATREMIA Status: Acute (4) Osteomyelitis of toe of right foot Code(s): M86.9 - OSTEOMYELITIS, UNSPECIFIED Status: Acute (5) Ulcer of right great toe due to diabetes mellitus Code(s): E11.621 - TYPE 2 DIABETES MELLITUS WITH FOOT ULCER; L97.519 - NON-PRS CHRONIC ULCER OTH PRT RIGHT FOOT W UNSP SEVERITY Status: Acute (6) Anemia, normocytic normochromic Code(s): D64.9 - ANEMIA, UNSPECIFIED Status: Chronic (7) Anxiety and depression Code(s): F41.8 - OTHER SPECIFIED ANXIETY DISORDERS Status: Chronic (8) COPD (chronic obstructive pulmonary disease) Status: Chronic Qualifiers: COPD type: chronic bronchitis (9) Chronic low back pain Code(s): M54.5 - LOW BACK PAIN; G89.29 - OTHER CHRONIC PAIN Status: Chronic Qualifiers: Back pain laterality: unspecified Sciatica presence: without sciatica Qualified Code(s): M54.5 - Low back pain; G89.29 - Other chronic pain; G89.29 - Other chronic pain (10) Diabetes type 2, controlled Code(s): E11.9 - TYPE 2 DIABETES MELLITUS WITHOUT COMPLICATIONS Status: Chronic Qualifiers: Diabetes mellitus fpc insulin use: with tank terminal gauger use Diabetes mellitus complication status: with unspecified complications Qualified Code(s) : E11.8 - Type 2 diabetes mellitus with unspecified complications; Z79.4 - custodial (current) use of insulin; Z79.4 - director long term care (current) use of insulin; Z79.4 - director long term care (current) use of insulin; Z79.4 - custodial (current) use of insulin (11) GERD (gastroesophageal reflux disease) Code(s): K21.9 - GASTRO-ESOPHAGEAL REFLUX DISEASE WITHOUT ESOPHAGITIS Status: Chronic Qualifiers: Esophagitis presence: esophagitis presence not specified Qualified Code(s) : K21.9 - Gastro-esophageal reflux disease without esophagitis (12) H/O chronic pancreatitis Code(s): Z87.19 - PERSONAL HISTORY OF OTHER DISEASES OF THE DIGESTIVE SYSTEM Status: Chronic (13) Hypertension Code(s): I10 - ESSENTIAL (PRIMARY) HYPERTENSION Status: Chronic Qualifiers: Hypertension type: essential hypertension Qualified Code(s): I10 - Essential (primary) hypertension (14) Obesity (BMI 30-39.9) Code(s): E66.9 - OBESITY, UNSPECIFIED Status: Chronic - 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 Review of Systems - Review of Systems ENT: negative: Ear Pain, Ear Discharge, Nose Pain, Nose Discharge, Nose Congestion, Mouth Pain, Mouth Swelling, Throat Pain, Throat Swelling, Other Respiratory: negative: Cough, Dry, Shortness of Breath, Hemoptysis, SOB with Excertion, Pleuritic Pain, Sputum, Wheezing Cardiovascular: negative: chest pain, palpitations, orthopnea, paroxysmal nocturnal dyspnea, edema, light headedness, other Gastrointestinal: negative: Nausea, Vomiting, Abdominal Pain, Diarrhea, Constipation, Melena, Hematochezia, Other Genitourinary: negative: Dysuria, Frequency, Incontinence, Hematuria, Retention , Other Musculoskeletal: negative: Neck Pain, Shoulder Pain, Arm Pain, Back Pain, Hand Pain, Leg Pain, Foot Pain, Other Skin: negative: Rash, Lesions, Carl, Bruising, Other - Medications/Allergies Allergies/Adverse Reactions: Allergies Allergy/AdvReac Type Severity Reaction Status Date / Time No Known Drug Allergies Allergy Verified 07/06/14 00:10 MUSHROOMS Allergy Severe Uncoded 07/06/14 00:10 Medications: Current Medications Acetaminophen (Tylenol) 650 mg PO Q4H PRN PRN Reason: Headache/Fever or Pain Last Admin: 11/02/17 10:42 Dose: 650 mg Acetaminophen (Tylenol) 1,000 mg PO Q6H PRN PRN Reason: Moderate to Severe Pain (6-10) Hydrocodone Bitart/Acetaminophen (Trade 5/325) 1 tab PO Q4H PRN PRN Reason: Moderate Pain (4-6) Last Admin: 11/06/17 12:43 Dose: 1 tab Al Hydroxide/Mg Hydroxide (Maalox) 15 ml PO Q4H PRN PRN Reason: Heartburn or Indigestion Albuterol Sulfate (Proventil Hfa) 2 puff INH Q4H PRN PRN Reason: SOB &/or Wheezing Lipase/Protease/[place] ([place] [id number]) 1 cap PO QID-WM [facility] Last Admin: 11/06/17 12:40 Dose: 1 cap Aripiprazole (Abilify) 2 mg PO DAILY [facility] Last Admin: 11/06/17 07:53 Dose: 2 mg Artificial Tears (Tears Naturale) 0 drop EA EYE PRN PRN PRN Reason: Dry Eyes Aspirin (Aspirin Chewable) 81 mg PO DAILY [facility] Last Admin: 11/06/17 07:54 Dose: 81 mg Atorvastatin Calcium (Lipitor) 40 mg PO HS [facility] Last Admin: 11/05/17 21:00 Dose: 40 mg Cetirizine HCl (Zyrtec) 10 mg PO DAILY PRN PRN Reason: Allergies Dextrose/Water (Dextrose 50%) 25 gm SLOW IVP PRN PRN PRN Reason: Hypoglycemia Enoxaparin Sodium (Lovenox) 40 mg SC 0900 [facility] Last Admin: 11/06/17 07:53 Dose: 40 mg Famotidine (Pepcid) 20 mg PO BIDPRN PRN PRN Reason: Heartburn or Indigestion Fluoxetine HCl (Prozac) 80 mg PO DAILY [facility] Last Admin: 11/06/17 07:53 Dose: 80 mg Glucagon (Glucagon) 1 mg IM PRN PRN PRN Reason: Hypoglycemia Guaifenesin (Robitussin Sf) 200 mg PO Q4H PRN PRN Reason: Cough Hydralazine HCl (Apresoline) 10 mg SLOW IVP Q4H PRN PRN Reason: Systolic BP > 180 Dextrose/Water (D5w) 1,000 mls @ 0 mls/hr IV .Q0M PRN PRN Reason: Hypoglycemia Vancomycin HCl 1.75 gm/ Sodium (Chloride) 500 mls @ 250 mls/hr IVPB 0600,1800 [facility] Last Admin: 11/06/17 05:46 Dose: 500 mls Insulin Human Lispro (Humalog) 0 units SC .MILD SLIDING SCALE PRN PRN Reason: Mild Correctional Scale Last Admin: 11/06/17 05:46 Dose: 2 unit Loperamide HCl (Imodium) 2 mg PO PRN PRN PRN Reason: Diarrhea/Loose Stools Loratadine (Claritin) 10 mg PO DAILYPRN PRN PRN Reason: Sinus Symptoms Magnesium Hydroxide (Milk Of Magnesium) 30 ml PO DAILYPRN PRN PRN Reason: Constipation Metoclopramide HCl (Reglan) 5 mg IVP Q4H PRN PRN Reason: Nausea Mineral Oil/White Petrolatum (Eucerin Cream) 0 gm TOP BIDPRN PRN PRN Reason: Dry Skin Mometasone Furoate/Formoterol Fumar (Dulera 100 Mcg/5 Mcg Inhaler) 2 puff INH BID-RT [facility] Last Admin: 11/06/17 06:56 Dose: 2 puff Morphine Sulfate (Ms Contin) 15 mg PO Q8HR [facility] Last Admin: 11/06/17 05:46 Dose: 15 mg Morphine Sulfate (Morphine) 4 mg SLOW IVP Q4H PRN PRN Reason: Pain Last Admin: 11/02/17 11:22 Dose: 4 mg Ondansetron HCl (Zofran) 4 mg IVP Q6H PRN PRN Reason: Nausea/Vomiting Pantoprazole Sodium (Protonix) 40 mg PO BID [facility] Last Admin: 11/06/17 07:53 Dose: 40 mg Phenol (Chloraseptic [place] 180 Ml Bot) 0 ml PO PRN PRN PRN Reason: Sore Throat Senna (Senokot) 2 tab PO HSPRN PRN PRN Reason: Constipation Sodium Chloride ([place] Nasal [place] 0.65%) 0 ml EA NARE QIDPRN PRN PRN Reason: Nasal Congestion Zolpidem Tartrate (Ambien) 10 mg PO HS PRN PRN Reason: Insomnia Last Admin: 11/04/17 20:21 Dose: 10 mg
--- NOTE | 2017-11-06 13:35 | DIS ---
DATE OF ADMISSION: 11/01/2017 DATE OF DISCHARGE: 11/06/2017 PRIMARY CARE PHYSICIAN: Dr. Michael Welch. DISCHARGE DISPOSITION: Home with outpatient wound care and IV antibiotic. PRIMARY DISCHARGE DIAGNOSES: Osteomyelitis of the great toe on the right side status post amputation of toe, sepsis due to methicillin-resistant Staphylococcus aureus, bacteremia due to methicillin-res istant Staphylococcus aureus, hyponatremia, acute kidney failure. SECONDARY DISCHARGE DIAGNOSES: Obesity with BMI 35, hypertension, history of chronic pancreatitis, g astroesophageal reflux disease, diabetes type 2, chronic obstructive pulmonary disease, chronic low b ack pain, anxiety, and depression, normocytic normochromic anemia, ulcer of the right great toe due t o diabetes. PRIMARY PROCEDURE AND OPERATION: PICC line placement. Dr. Soto did amputation of right great toe. RADIOLOGICAL INVESTIGATION: Lower extremity MRI. Foot x-ray. SIGNIFICANT LABORATORY DATA: WBC 6.6, hemoglobin 10.9, platelet 182. Sodium 131, potassium 4.1, BUN 9, creatinine 1.14, calcium 8.4. Urinalysis normal. Blood culture positive for MRSA. Repeat blood culture negative. DISCHARGE MEDICATIONS: Patient will have vancomycin 1.75 gram IV q.12 hours for 2 more weeks, vancom ycin dose will be adjusted by Dr. Roberts based on trough level. Continue following medications: Vent wendi HFA 2 puffs q.4 hourly p.r.n., Abilify 2 mg daily, aspirin 81 mg p.o. daily, azelastine nasal sp ray daily, cetirizine 10 mg daily, Nexium 40 mg p.o. b.i.d., Prozac 80 mg p.o. daily, Advair 1 inhala tion b.i.d., glipizide 10 mg p.o. b.i.d., Glargine insulin 130 units subcu as directed, Creon 1 capsu le q.i.d. with meal, lisinopril 20 mg p.o. daily, Metformin 2000 mg p.o. daily, morphine sulfate 15 m g p.o. t.i.d., multivitamin 1 tablet p.o. daily, Zocor 80 mg p.o. at bedtime, testosterone topical ap plication daily, Ambien 10 mg p.o. at bedtime, Tylenol #3 one or two tablets q.6 hourly p.r.n. CONTRAINDICATIONS: None. CODE STATUS: FULL CODE. INPATIENT CONSULTANTS: Dr. Roberts was consulted to decide IV antibiotic therapy. Dr. Soto was cons ulted for diabetic great toe infection. ALLERGIES: No known drug allergy. DISCHARGE PLAN: Post hospital, the patient will follow up with Dr. Roberts, Dr. Soto as instructed a fl primary care physician in 1 week. HOSPITAL COURSE: A 57-year-old male who was admitted by Dr. Lewis on 11/02/2017. Please see his H&P for further detail. The patient was admitted for right great toe infection. Because of that, th e patient was also having right foot cellulitis. Patient has underlying history of diabetes. On adm ission, he was meeting sepsis criteria. He had acute kidney failure, which was resolved with IV flui d. The patient was treated with vancomycin and Zosyn. His blood culture was positive for MRSA. We did repeat blood culture that was negative. When blood culture report was final, at that point, we d iscontinued Zosyn and continued with vancomycin only. Patient required surgical consultation and Dr. Soto did a right great toe amputation for diabetic foot infection with gangrene. Dr. Roberts was co nsulted to decide about antibiotic therapy and he recommended to prevent readmissions and to prevent any bacterial seeding. He recommended IV antibiotic therapy for 2 more weeks. PICC line was placed and with help of test case developer, we arranged outpatient IV antibiotic therapy. The patient is requirin g wound VAC at surgical site. Arrangement of wound VAC is pending. If wound VAC arranged, then the patient is medically stable for discharge today. The patient is seen and examined at bedside today. Please see my progress note from today for furthe r detail. We are prescribing Tylenol #3 for pain and the patient will get IV antibiotic therapy thro [facility] Dr. Roberts' office.
== END 2017-11-06 20:13 | disposition home or self-care (01) | DRG 616 ==
LOC: ERS 16:19 → T4-B 18:00
PROVIDERS: ADMIT Family Medicine; ATTEND Family Medicine
PROC: 0Y6P0Z1 Detachment at Right 1st Toe, High, Open Approach (ICD-10-PCS; principal; 2017-11-03)
PROC: 02HV33Z Insertion of Infusion Device into Superior Vena Cava, Percutaneous Approach (ICD-10-PCS; 2017-11-03)
DX: E11.621 Type 2 diabetes mellitus with foot ulcer (principal); A41.02 Sepsis due to Methicillin resistant Staphylococcus aureus; E11.52 Type 2 diabetes mellitus with diabetic peripheral angiopathy with gangrene; M86.8X8 Other osteomyelitis, other site; L97.516 Non-pressure chronic ulcer of other part of right foot with bone involvement without evidence of necrosis; E87.1 Hypo-osmolality and hyponatremia; K86.1 Other chronic pancreatitis; N17.9 Acute kidney failure, unspecified; E11.69 Type 2 diabetes mellitus with other specified complication; E66.9 Obesity, unspecified; Z68.35 Body mass index [BMI] 35.0-35.9, adult; I10 Essential (primary) hypertension; K21.9 Gastro-esophageal reflux disease without esophagitis; J44.9 Chronic obstructive pulmonary disease, unspecified; G89.29 Other chronic pain; M54.9 Dorsalgia, unspecified; F32.9 Major depressive disorder, single episode, unspecified; F41.9 Anxiety disorder, unspecified; D64.9 Anemia, unspecified; L03.031 Cellulitis of right toe; Z79.4 Long term (current) use of insulin; I25.10 Atherosclerotic heart disease of native coronary artery without angina pectoris; I25.2 Old myocardial infarction; E78.5 Hyperlipidemia, unspecified; E78.00 Pure hypercholesterolemia, unspecified; K86.81 Exocrine pancreatic insufficiency; F10.20 Alcohol dependence, uncomplicated
CPT/HCPCS: 36415; 36416; 36569; 80048; 80053; 80202; 81003; 81015; 83605; 85025; 87040; 87070; 87077; 87149; 87186; 87205; 88305; 93005; 93010; 96365; 96366; 96367; 96375; A9579; C1751; G8978-GP-CI; G8979-GP-CI; G8980-GP-CI; J1650; J2001; J2270; J2405; J2543; J2704; J3010; J3370; J7050

== ENCOUNTER 2017-11-15 07:50 | Outpatient (CLI) | payer BC ==
--- NOTE | 2017-11-15 08:51 | PRG ---
DATE OF SERVICE: 11/15/2017 CHIEF COMPLAINT: Ulcer, right great toe amputation site. HISTORY OF PRESENT ILLNESS: This is a 57-year-old male, who presents to our clinic today for wound c are evaluation and wound VAC reapplication. He has a history of developing an ulcer from a blister, which started about a year ago. He has been seeing Dr. Jeannette Harvey. He has been treating the wound an d has not healed over the last year. On 11/01/2017, he developed an infection. He was admitted to [facility] for IV antibiotics and had the right great toe amputated by Dr. Soto on 11/03/2017. He had wound VAC applied at that time and has been getting 3 times a week VAC changes, wound VAC being set at 125 mmHg, continuous therapy. Past medical history, past surgical history, medications, allergies, family history, and social histo ry as documented in the [facility]. This was reviewed and deemed accurate. Of note, the patient is currently on daily IV vancomycin 1.75 gram through his PICC line. REVIEW OF SYSTEMS: CONSTITUTIONAL: Denies nausea, vomiting, fevers, or chills. PHYSICAL EXAMINATION: CARDIOVASCULAR: Dorsalis pedis and posterior tibial pulses palpable to the right lower extremity. I mmediate capillary fill time to the remaining toes. No edema noted. No varicosities noted. NEUROLOGIC: The patient has decreased, protective sensation on cursory exam. DERMATOLOGICAL EXAM: There is an ulceration to the distal aspect of the right great toe amputation s ite, measuring 2.5 cm x 1.8 cm x 1.0 cm of depth. It is 90% granular tissue, 10% slough. There is s ome slight serosanguineous drainage. No malodor. Minimal periwound erythema associated with the wou nd VAC dressing. No ascending lymphangitis. ASSESSMENT: 1. Non-pressure chronic ulceration to the right great toe, status post amputation of the right great toe. 2. Diabetes with peripheral neuropathy. PLAN: 1. Full thickness debridement of the subcutaneous tissue layer removing all nonviable tissue and bio film from the wound base, utilizing dermal curette. This was performed without need for anesthesia d ue to patient's peripheral neuropathy. He tolerated the procedure well. 2. Going to continue with wound VAC application 3 times a week at 125 mmHg until the wound fills in sufficiently. 3. The patient will follow up on Saturday for wound VAC change, Saturday for wound VAC change, and saturday with me for reevaluation and debridement as necessary.
[2017-11-15] MEDS ORDERED: Sodium Chloride 0.9% 15 ML NEB ONE (16:54)
== END 2017-11-15 07:51 | disposition home or self-care (01) ==
LOC: WCC 07:50
PROVIDERS: ATTEND Podiatrist Foot & Ankle Surgery
DX: E11.621 Type 2 diabetes mellitus with foot ulcer (principal); L97.519 Non-pressure chronic ulcer of other part of right foot with unspecified severity; E11.42 Type 2 diabetes mellitus with diabetic polyneuropathy; Z89.411 Acquired absence of right great toe
CPT/HCPCS: A4218

== ENCOUNTER 2017-11-22 09:06 | Outpatient (CLI) | payer BC ==
--- NOTE | 2017-11-22 12:23 | PRG ---
DATE OF SERVICE: 11/22/2017 SUBJECTIVE: This is a 57-year-old male returns today for followup right great toe ulcerations status post great toe amputation. He has been getting wound VAC changes 3 times a week. No problems with the VAC changes. The patient denies nausea, vomiting, fevers or chills. PHYSICAL EXAMINATION: Ulceration to the right great toe measuring 1.7 cm x 2.0 cm x 0.5 cm of depth. There is 10% slough 90% granulation tissue. No periwound erythema, edema or warmth. ASSESSMENT: Non-pressure chronic ulceration of the right great toe, status post amputation. PLAN: 1. Full thickness debridement of subcutaneous tissue layer removing all nonviable tissue and biofilm from the wound base with dermal curet. The patient tolerated the procedure well. 2. Continue with VAC changes 3 times a week at 125 mmHg. 3. He will follow up with me in 1 week.
== END 2017-11-22 09:07 | disposition home or self-care (01) ==
LOC: WCC 09:06
PROVIDERS: ATTEND Podiatrist Foot & Ankle Surgery
DX: L97.519 Non-pressure chronic ulcer of other part of right foot with unspecified severity (principal); Z89.411 Acquired absence of right great toe
CPT/HCPCS: 11042

== ENCOUNTER 2017-11-23 08:22 | Emergency (ER) | payer BC | END 2017-11-23 10:03 | disposition home or self-care (01) | LOC: ERS 08:22 | DX: H54.61 Unqualified visual loss, right eye, normal vision left eye (principal); E11.9 Type 2 diabetes mellitus without complications; I10 Essential (primary) hypertension; E78.5 Hyperlipidemia, unspecified; F17.220 Nicotine dependence, chewing tobacco, uncomplicated; Z79.4 Long term (current) use of insulin; Z79.899 Other long term (current) drug therapy; Z79.82 Long term (current) use of aspirin ==

== ENCOUNTER 2017-12-04 13:46 | Outpatient (CLI) | payer BC | END 2017-12-04 13:47 | disposition home or self-care (01) | LOC: WCC 13:46 | PROVIDERS: ATTEND Podiatrist Foot & Ankle Surgery | DX: L97.519 Non-pressure chronic ulcer of other part of right foot with unspecified severity (principal) | CPT/HCPCS: 97605 ==

== ENCOUNTER 2017-12-06 10:10 | Outpatient (CLI) | payer BC ==
--- NOTE | 2017-12-06 10:53 | PRG ---
DATE OF SERVICE: 12/06/2017 SUBJECTIVE: This 57-year-old male returns today for followup right great toe amputation site, he has been getting wound VAC changes 3 times a week. Denies acute events since last visit. Denies nausea , vomiting, fevers or chills. PHYSICAL EXAMINATION: Ulceration of the right great toe amputation site measuring 1.1 cm x 0.7 cm x 0.7 cm of depth. There is 100% granular tissue. No periwound erythema, edema or warmth. Wound does not probe to bone or tendon. Minimal serosanguineous drainage, some mild maceration at the wound ed ges. ASSESSMENT: Non-pressure chronic ulceration to the right great toe, status post right great toe ampu tation. PLAN: 1. Full thickness debridement of subcutaneous tissue layer removing all nonviable tissue and biofilm from the wound base down to bleeding granular wound base. The patient tolerated the procedure well. 2. Continue with wound VAC changes 3 times a week. He will follow up with me in 1 week. 3. Patient requesting when he can return to work. 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 I indicated that he was free to return to work at this time. I wrote him a return to work note that he may return on 12/09/2017. The patient will follow up with me in 1 week.
== END 2017-12-06 10:11 | disposition home or self-care (01) ==
LOC: WCC 10:10
PROVIDERS: ATTEND Podiatrist Foot & Ankle Surgery
DX: L97.519 Non-pressure chronic ulcer of other part of right foot with unspecified severity (principal); Z89.411 Acquired absence of right great toe

== ENCOUNTER 2017-12-09 09:39 | Outpatient (CLI) | payer BC | END 2017-12-09 09:40 | disposition home or self-care (01) | LOC: WCC 09:39 | PROVIDERS: ATTEND Podiatrist Foot & Ankle Surgery | DX: L97.519 Non-pressure chronic ulcer of other part of right foot with unspecified severity (principal) | CPT/HCPCS: 97605 ==

== ENCOUNTER 2017-12-13 09:48 | Outpatient (CLI) | payer BC ==
--- NOTE | 2017-12-13 11:17 | PRG ---
DATE OF SERVICE: 12/13/2017 SUBJECTIVE: This 57-year-old male returns today, status post right great toe amputation. He has bee n doing well over the last week, although has noted some increased pain on the tip of the right secon d toe. Some minor swelling to this toe as well. It has been okay with wound VAC changes. No nausea , vomiting, fevers, or chills. PHYSICAL EXAMINATION: Ulcer remains to the right great toe amputation site, measuring 0.8 cm x 0.6 c m x 0.7 cm of depth. A 100% granulation tissue. No periwound erythema, edema, or warmth. Right sec ond toe is contracted. No sign of a pressure ulcer or preulcerative lesions on the second toe, but t here is tenderness to the palpation of the distal toe. ASSESSMENT: 1. Non-pressure chronic ulceration to the right great toe amputation site. 2. Hammertoe secondary to muscular imbalance after a great toe amputation. PLAN: 1. Full-thickness debridement of the subcutaneous tissue layer removing all nonviable tissue and bio film from the wound base down to bleeding granular wound base. The patient tolerated the procedure w ell. 2. Recommend obtaining a hammertoe crest pad to wear on the lesser digits to help keep the pressure off the tips of the toes. 3. We are going to order him wound supplies and will start with daily collagen dressing changes. 4. The patient to follow up with me in 1 week.
== END 2017-12-13 09:49 | disposition home or self-care (01) ==
LOC: WCC 09:48
PROVIDERS: ATTEND Podiatrist Foot & Ankle Surgery
DX: L97.519 Non-pressure chronic ulcer of other part of right foot with unspecified severity (principal); Z89.411 Acquired absence of right great toe; M20.40 Other hammer toe(s) (acquired), unspecified foot; R26.89 Other abnormalities of gait and mobility
CPT/HCPCS: 11042

== ENCOUNTER 2017-12-20 10:24 | Outpatient (CLI) | payer BC ==
--- NOTE | 2017-12-20 11:12 | PRG ---
DATE OF SERVICE: 12/20/2017 SUBJECTIVE: This is a 57-year-old male returns today for followup right great toe amputation site. Wound has done well over the last week with collagen dressing changes on a daily basis. They did att empt to get a hammertoe pad for the right second toe, I am not sure if they got the right one. They have noticed some loosening of the toenail and some drainage from that second toe. He has been apply ing Triple Antibiotic ointment to it. PHYSICAL EXAMINATION: Ulceration of the right great toe amputation site measuring 0.5 cm x 0.6 cm x 0.5 cm, 100% granular tissue. No periwound erythema, edema, or warmth. Right second toenail is loo sened. This was removed atraumatically with no underlying wound present. ASSESSMENT: 1. 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 2. Onycholysis. 3. Diabetes with peripheral neuropathy. PLAN: 1. Full thickness debridement of subcutaneous tissue layer removing all nonviable tissue and biofilm from the wound base down to bleeding granular wound base. The patient tolerated the procedure well. 2. Continue with collagen dressing changes on a daily basis. 3. I showed them exactly what kind of hammertoe pad he should be using for the second toe to prevent ulceration to the tip of it. 4. He can use the Triple Antibiotic ointment bandage to the right second toe. 5. He will follow up with me in 1 week.
[2017-12-20] MEDS ORDERED: Sodium Chloride 0.9% 15 ML NEB ONE (20:01)
== END 2017-12-20 10:25 | disposition home or self-care (01) ==
LOC: WCC 10:24
PROVIDERS: ATTEND Podiatrist Foot & Ankle Surgery
DX: T87.89 Other complications of amputation stump (principal); E11.42 Type 2 diabetes mellitus with diabetic polyneuropathy; E11.622 Type 2 diabetes mellitus with other skin ulcer; L97.519 Non-pressure chronic ulcer of other part of right foot with unspecified severity; L60.1 Onycholysis
CPT/HCPCS: 11042; A4218

== ENCOUNTER 2017-12-27 08:20 | Outpatient (CLI) | payer BC ==
[2017-12-27] MEDS ORDERED: Sodium Chloride 0.9% 15 ML NEB ONE (10:17)
--- NOTE | 2017-12-27 10:59 | PRG ---
DATE OF SERVICE: 12/27/2017 SUBJECTIVE: A 57-year-old male returns today for followup right great toe amputation site ulceration . The patient has done well over the last week with Promogran collagen dressing changes, has had no issues. He did obtain a hammertoe pad to offload the pressure on the second toe and says it is worki ng well. PHYSICAL EXAMINATION: Ulceration to the right great toe amputation stump measuring 0.7 cm x 0.5 cm x 0.8 cm, 100% granulation tissue. No periwound erythema, edema or warmth. ASSESSMENT: Non-pressure chronic ulceration of the right great toe, status post right great toe ampu tation. PLAN: 1. Full thickness debridement of subcutaneous tissue layer removing all nonviable tissue and biofilm from the wound base down to bleeding granular wound base. The patient tolerated the procedure well. 2. Continue with collagen dressing changes on a daily basis. 3. I would continue with the hammertoe crest pad to remove pressure from the second toe and prevent ulceration to this area. 4. The patient will follow up with me in 3 weeks.
== END 2017-12-27 08:21 | disposition home or self-care (01) ==
LOC: WCC 08:20
PROVIDERS: ATTEND Podiatrist Foot & Ankle Surgery
DX: L97.519 Non-pressure chronic ulcer of other part of right foot with unspecified severity (principal); Z89.411 Acquired absence of right great toe
CPT/HCPCS: A4218

== ENCOUNTER 2018-01-17 09:49 | Outpatient (CLI) | payer BC ==
--- NOTE | 2018-01-17 10:43 | PRG ---
DATE OF SERVICE: 01/17/2018 SUBJECTIVE: This is a 57-year-old male who returns today followup status post right great toe amputa tion, which has been left to heel secondarily. He since developed a wound on the second digit due to hammering of the second toe on the tip of the toe, has been dressing daily with Promogran and gauze. Thinks the wound site to the amputation has healed. Denies nausea, vomiting, fevers or chills. PHYSICAL EXAMINATION: Ulcer to the amputation site has healed, second toe ulceration distal tip jessica ures 0.3 cm x 0.3 cm x 0.4 cm depth, has a hyperkeratotic surrounding 100% slough in the wound base, does not probe to bone. No periwound erythema, edema or warmth. Flexible hammertoe deformity of thi s toe. ASSESSMENT: Non-pressure chronic ulceration to the right second toe secondary to the hammertoe defor mity. PLAN: 1. Full thickness debridement of subcutaneous tissue removing all nonviable tissue and biofilm from the wound base as well as hyperkeratotic tissue from the periwound area with a 15 blade scalpel. 2. I am going to continue with Promogran dressing changes on a daily basis to this wound area. 3. The patient is to wear a crest pads to keep the toe offloaded and continue with the postop shoe. 4. The patient will follow up with me in 1 week.
[2018-01-17] MEDS ORDERED: Sodium Chloride 0.9% 15 ML NEB ONE (15:31)
== END 2018-01-17 09:50 | disposition home or self-care (01) ==
LOC: WCC 09:49
PROVIDERS: ATTEND Podiatrist Foot & Ankle Surgery
DX: L97.519 Non-pressure chronic ulcer of other part of right foot with unspecified severity (principal); M20.41 Other hammer toe(s) (acquired), right foot
CPT/HCPCS: 11042; A4218

== ENCOUNTER 2018-01-24 09:11 | Outpatient (CLI) | payer BC ==
--- NOTE | 2018-01-24 11:08 | PRG ---
DATE OF SERVICE: 01/24/2018 SUBJECTIVE: This is a 57-year-old male returns today for follow up right second toe ulceration. He has had no acute events since last visit, has been doing daily Promogran, gauze and Coban dressing ch anges. PHYSICAL EXAMINATION: Wound persists on the right second toe measuring 0.4 cm x 0.5 cm x 0.2 cm has 100% granular wound base. Minimal serosanguineous drainage, some mild periwound hyperkeratosis. Th e toe remains in a flexible hammertoe deformity to this toe. ASSESSMENT: 1. Non-pressure chronic ulceration to the right second toe. 2. Flexible hammertoe deformity. PLAN: 1. Today full thickness debridement of this wound down to subcutaneous tissue layer removing all non viable tissue and biofilm from the wound base down to a bleeding granular wound base. The patient to lerated the procedure well. 2. Aseptic technique was used to prep the right second toe, the toe was anesthetized with 2 mL of 2% lidocaine plain. The long flexor tendon was transected plantar to the proximal interphalangeal join t with 18 gauge needle releasing the tension on the tip of the toe and decreasing the hammertoe defor mity to an adequate level that would reduce pressure on the tip of the toe. The toe was bandaged wi th Promogran, gauze and tape. He will follow up in 1 week for reevaluation or as sooner should he rosa ve any problems before that time.
[2018-01-25] MEDS ORDERED: Sodium Chloride 0.9% 15 ML NEB ONE (08:44)
[2018-01-25] MEDS ORDERED: Lidocaine 2% w/Epinephrine 1:200K 20 ML VIAL ONE (08:44)
== END 2018-01-24 09:12 | disposition home or self-care (01) ==
LOC: WCC 09:11
PROVIDERS: ATTEND Podiatrist Foot & Ankle Surgery
DX: L97.519 Non-pressure chronic ulcer of other part of right foot with unspecified severity (principal); M20.41 Other hammer toe(s) (acquired), right foot
CPT/HCPCS: 11042

== ENCOUNTER 2018-01-31 10:48 | Outpatient (CLI) | payer BC ==
--- NOTE | 2018-01-31 12:28 | PRG ---
DATE OF SERVICE: 01/31/2018 SUBJECTIVE: This is a 57-year-old male returns today for followup right second toe ulceration. He h ad a flexor tenotomy last week. He says he thinks his toe is doing well, stayed straight. He has co ntinued to use the crest pad to help promote straightness of the toe. No other acute events. Denies nausea, vomiting, fevers or chills. PHYSICAL EXAMINATION: Ulcer to the tip of the toe has hyperkeratotic cover, once removed, there was a very small pinpoint ulceration measuring approximately 0.1 cm x 0.2 cm with no depth. The stab inc ision site for the tenotomy is healed. No periwound erythema, edema or warmth. 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 PLAN: Full thickness debridement of subcutaneous tissue removing all nonviable tissue and biofilm fr om the wound base and a bleeding granular wound base. Patient will continue with daily dressing mccord mandie and follow up with me in 1 week. I expect the wound will be healed at that time.
[2018-01-31] MEDS ORDERED: Sodium Chloride 0.9% 15 ML NEB ONE (17:10)
== END 2018-01-31 10:49 | disposition home or self-care (01) ==
LOC: WCC 10:48
PROVIDERS: ATTEND Podiatrist Foot & Ankle Surgery
DX: L97.519 Non-pressure chronic ulcer of other part of right foot with unspecified severity (principal); Z98.890 Other specified postprocedural states
CPT/HCPCS: 11042; A4218

== ENCOUNTER 2018-02-07 08:14 | Outpatient (CLI) | payer BC ==
--- NOTE | 2018-02-07 10:10 | PRG ---
DATE OF SERVICE: 02/07/2018 SUBJECTIVE: A 57-year-old male who returns today for followup right second toe ulceration status pos t flexor tenotomy procedures, doing well since last week. He has stopped dressing because he has not iced no drainage and thinks it is healed. Denies acute events, nausea, vomiting, fevers or chills si nce last visit. PHYSICAL EXAMINATION: Right second toe has a callus on the distal tip of the toe bearing of the call us, there is no underlying ulceration. Toe has remained straight following the procedure. ASSESSMENT: 1. 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 2. Diabetes with peripheral neuropathy. PLAN: Patient educated on preventative care of the foot. He will follow up with me in my main offic e every 2 months for routine diabetic foot care or return immediately should have any problems before that time.
== END 2018-02-07 08:15 | disposition home or self-care (01) ==
LOC: WCC 08:14
PROVIDERS: ATTEND Podiatrist Foot & Ankle Surgery
DX: E11.621 Type 2 diabetes mellitus with foot ulcer (principal); L97.519 Non-pressure chronic ulcer of other part of right foot with unspecified severity; E11.42 Type 2 diabetes mellitus with diabetic polyneuropathy

== ENCOUNTER 2018-04-08 06:47 | Outpatient (CLI) | payer BC ==
[2018-04-08 13:14] LABS: #Eosinphils 0.1 thou/uL (0.0-0.7); #Lymphocytes 1.8 thou/uL (1.20-3.40); #Monocytes 0.4 thou/uL (0.11-0.59); #Neutrophils 3.3 thou/uL (1.40-6.50); %Basophils 0.8 % (0.0-1.0); %Eosinophils 2.6 % (0.0-10.0); %Lymphocytes 31.1 % (21.0-51.0); %Monocytes 7.7 % (0.0-10.0); %Neutrophils 57.8 % (42.0-75.0); Hemoglobin 12.4 g/dL (14.0-18.0); Mean Corpuscular HGB CONC 33.7 g/dL (32.0-36.0); Mean Corpuscular Volume 85.8 fL (78.0-98.0); Platelet Count 188 thou/uL (130-400); RBC Distribution Width 13.1 % (11.5-14.5); Red Blood Cell (RBC) Count 4.28 mill/uL (4.70-6.10); White Blood Cell (WBC) Count 5.7 thou/uL (4.8-10.8)
[2018-04-08 13:40] LABS: Anion Gap 15 mmol/L (10-20); BUN (Urea Nitrogen) 13 mg/dL (8.4-25.7); Calc. Creatinine Clearance 0 mL/min (70-130); Calcium 9.2 mg/dL (7.8-10.44); Carbon Dioxide 22 mmol/L (22-29); Chloride 104 mmol/L (98-107); Estimated GFR-MDRD 60; Glucose 197 mg/dL (70-105); Potassium 4.5 mmol/L (3.5-5.1); Sodium 136 mmol/L (136-145)
== END 2018-04-08 06:48 | disposition home or self-care (01) ==
LOC: LABBT 06:47
PROVIDERS: ATTEND Specialist
DX: Z01.812 Encounter for preprocedural laboratory examination (principal); C43.9 Malignant melanoma of skin, unspecified
CPT/HCPCS: 80048; 85025

== ENCOUNTER 2018-04-09 05:40 | Day surgery (SDC) | payer BC ==
--- NOTE | 2018-04-08 08:08 | HP ---
HISTORY OF PRESENT ILLNESS: Jean Recinos is a 57-year-old male patient, presented to my office with a lesion over his right chest. Punch biopsy performed. Referred for treatment of melanocytic lesion. He subsequently underwent wide excision in the office with layer closure and both the punch biopsy initially and this lesion was sent to dermatopathological evaluation. Pathology of both specimens revealed malignant melanoma, Daniel level 3, 0.6 mm Breslow level, pathologically T1a, pathologically Nx M0. Closest margins were 3 to 4 mm. Deep margins were negative. There is no ulceration component to the lesion. Plan at this time is for wider excision of this melanoma. [place] sampling is not recommended for this lesion less than 1 mm Breslow. The patient understands the risks and benefits of procedure, and consents. We will plan this under IV sedation, local anesthesia. PAST MEDICAL HISTORY: Diabetes mellitus, hypertension. PAST SURGICAL HISTORY: Amputation of right great toe in October [address] Soto, office excision of lesion of right upper chest, incision initially 3 cm. MEDICATIONS: 1. Lisinopril. 2. Metformin. 3. Glimepiride. 4. Insulin. 5. Naproxen. REVIEW OF SYSTEMS: Ten-point noncontributory. PHYSICAL EXAMINATION: VITAL SIGNS: 124/57, 83, 98.4 degrees, 253 pounds, 5 foot 11 inches. HEAD, EARS, EYES, NOSE, AND THROAT: Unremarkable. LUNGS: Clear to auscultation. CARDIAC: Regular rhythm without murmur or gallop. ABDOMEN: Soft and nontender. EXTREMITIES: Unremarkable. Well-healed incision in right upper chest. ASSESSMENT AND PLAN: Malignant melanoma 0.6 mm Breslow. Plan wide excision for wider margins. Salomón sampling not recommended for this thinner lesion. He has clinically negative nodes. Job ID: [id number]
[2018-04-08 12:12] VITALS: BMI 34.8
[2018-04-09] MEDS ORDERED: CEFAZOLIN 2 GM/50 ML BAG ONE (06:19)
[2018-04-09] MEDS ORDERED: Fentanyl 100 MCG/2 ML VIAL ONE (06:43)
[2018-04-09] MEDS ORDERED: Phenylephrine HCL 10 MG/ML VIAL ONE (07:05)
[2018-04-09] MEDS ORDERED: Bacitracin Zinc Ointment 30 gm TUBE ONE (07:07)
[2018-04-09] MEDS ORDERED: Bupivacaine HCl 0.5%/Epinephrine 1:200,000/PF 30 ml Vial ONE (07:07)
[2018-04-09] MEDS ORDERED: Lidocaine 1% (PF) 30 ML VIAL ONE (07:07)
[2018-04-09] MEDS ORDERED: Lidocaine 2% PF 5 ML VIAL ONE (07:07)
--- NOTE | 2018-04-09 10:28 | OP ---
DATE OF PROCEDURE: 04/09/2018 PREOPERATIVE DIAGNOSIS: Right upper chest melanoma with favorable characteristics not in need of sentinel node biopsy. POSTOPERATIVE DIAGNOSIS: Right upper chest melanoma with favorable characteristics not in need of sentinel node biopsy. PROCEDURES PERFORMED: Wide local excision of right upper chest melanoma, superficial spreading, Daniel level 3, 0.6 mm Breslow level, pathologically T1a N0 M0 prior excision in the office, closest margin was 3 to 4 mm, deep margins were negative (in the office, initial pathology suggested melanocytic lesion, but after excision in the office, Dermatopathology consultation revealed the initial punch biopsy was melanoma, superficial spreading). SPECIMEN: 8 x 2.5 cm, defect 9 x 6 cm. ANESTHESIA: General, local 0.5% Marcaine with epinephrine 30 mL mixed with 2% Xylocaine 10 mL, 30 mL mixture used. DESCRIPTION OF PROCEDURE: The patient was taken to the operating room, where under general anesthesia, right chest was prepared with ChloraPrep and draped in routine fashion. Local anesthetic was infiltrated in the skin and subcutaneous tissue about the operative site. Wide local excision, elliptically excised the previously excised scar with dimensions as noted above. Incision was carried down through the skin and subcutaneous tissue to the pectoralis fascia. Lesion excised, submitted to Pathology. Marked superficial margin in the lateral corner appropriately. Hemostasis gained with the cautery. Subcutaneous tissue was approximated with 3-0 Monocryl, skin with subdermal 4-0 Monocryl, and [place] glue applied. The patient tolerated the procedure well. Job ID: [id number]
--- NOTE | 2018-04-09 13:01 | EKG ---
Test Reason : PREOP Blood Pressure : / mmHG Vent. Rate : 068 BPM Atrial Rate : 068 BPM P-R Int : 164 ms QRS Dur : 132 ms QT Int : 404 ms P-R-T Axes : 065 -43 021 degrees QTc Int : 429 ms Normal sinus rhythm Left axis deviation Left ventricular hypertrophy with QRS widening Abnormal ECG When compared with ECG of 03-NOV-2017 12:11, No significant change was found Confirmed by DR. Morteza SERRA ([id number]) on 04/09/2018 1:01:40 PM Referred By: HOANG Confirmed By:DR. Morteza SERRA
[2018-04-09] MEDS ORDERED: PHENYLEPHRINE-NS 100 MCG/ML 10 ML SYRINGE ONE (15:03)
[2018-04-09] MEDS ORDERED: Metoclopramide HCl 10 MG/2 ML VIAL ONE (15:03)
[2018-04-09] MEDS ORDERED: Lidocaine 1% PF 5 ML VIAL ONE (15:03)
[2018-04-09] MEDS ORDERED: Ondansetron PF 4 MG/2 ML Vial ONE (15:03)
[2018-04-09] MEDS ORDERED: PROPOFOL 200 MG/20 ML VIAL ONE (15:03)
== END 2018-04-09 09:24 | disposition home or self-care (01) ==
LOC: SDC 05:40
PROVIDERS: ATTEND Specialist
PROC: 0HB5XZZ Excision of Chest Skin, External Approach (ICD-10-PCS; principal; 2018-04-09)
DX: C43.59 Malignant melanoma of other part of trunk (principal); E11.9 Type 2 diabetes mellitus without complications; I10 Essential (primary) hypertension; Z79.4 Long term (current) use of insulin; Z79.891 Long term (current) use of opiate analgesic; Z79.899 Other long term (current) drug therapy; Z91.018 Allergy to other foods
CPT/HCPCS: 36416; 88305; 93005; 93010; J0131; J0670; J2001; J2370; J2405; J2704; J2765; J3010

== ENCOUNTER 2018-04-28 07:38 | Outpatient (CLI) | payer BC ==
--- NOTE | 2018-04-28 11:35 | CT ---
CTA OF THE NECK UTILIZING IV CONTRAST AND 3D REFORMATTED IMAGING: COMPARISON: Prior carotid ultrasound dated 12/06/2017. FINDINGS: There is near-complete 90% stenosis involving the distal right carotid bulb and proximal left interna l carotid artery. There is high-grade stenosis involving the origin of the right ECA. There is slig htly diminished contrast opacification of flow within the right internal carotid artery. There is 75% luminal caliber narrowing involving the proximal left ICA. There is 50% luminal caliber narrowing involving the distal left carotid bulb. The CCAs are patent. The left vertebral artery is dominant and widely patent. The right vertebral artery is slightly dimi nutive and appears to terminate at the right PICA. Basilar artery appears patent. There are mild vascular calcifications involving the carotid siphons bilaterally. No definite hemodynamically significant stenosis is present. The visualized aerodigestive tract is unremarkable appearing. Upper lungs appear clear but detail is limited due to respiratory motion artifact. No definite acute osseous abnormality is evident. IMPRESSION: 1. Findings of high-grade stenosis involving the internal carotid arteries bilaterally, right greate r than left. There is 50% luminal caliber narrowing involving the left distal carotid bulb. There i s high-grade stenosis involving the right distal carotid bulb with high-grade stenosis involving the origin of the right external carotid artery. 2. Diminutive right vertebral artery that terminates at the right-sided posterior inferior cerebella r artery. POS: [facility]
[2018-04-28] MEDS ORDERED: Iopamidol 370 76% 100 ML VIAL ONE (12:45)
== END 2018-04-28 07:39 | disposition home or self-care (01) ==
LOC: BICCT 07:38
PROVIDERS: ATTEND Thoracic Surgery (Cardiothoracic Vascular Surgery)
DX: G45.1 Carotid artery syndrome (hemispheric) (principal); I65.23 Occlusion and stenosis of bilateral carotid arteries
CPT/HCPCS: 70498

== ENCOUNTER 2018-05-13 00:55 | Outpatient (CLI) | payer BC ==
[2018-05-13 09:28] LABS: #Eosinphils 0.2 thou/uL (0.0-0.7); #Lymphocytes 1.8 thou/uL (1.20-3.40); #Monocytes 0.4 thou/uL (0.11-0.59); #Neutrophils 3.5 thou/uL (1.40-6.50); %Basophils 0.7 % (0.0-1.0); %Eosinophils 2.7 % (0.0-10.0); %Lymphocytes 29.9 % (21.0-51.0); %Monocytes 7.2 % (0.0-10.0); %Neutrophils 59.5 % (42.0-75.0); Hemoglobin 11.8 g/dL (14.0-18.0); Mean Corpuscular HGB CONC 32.5 g/dL (32.0-36.0); Mean Corpuscular Hemoglobin 27.9 pg (27.0-31.0); Mean Corpuscular Volume 85.9 fL (78.0-98.0); Platelet Count 181 thou/uL (130-400); RBC Distribution Width 12.7 % (11.5-14.5); Red Blood Cell (RBC) Count 4.23 mill/uL (4.70-6.10); White Blood Cell (WBC) Count 5.9 thou/uL (4.8-10.8)
[2018-05-13 09:48] LABS: ALT (SGPT) 41 U/L (8-55); AST (SGOT) 29 U/L (5-34); Albumin 4.1 g/dL (3.5-5.0); Alkaline Phosphatase 60 U/L (40-150); Anion Gap 13 mmol/L (10-20); BUN (Urea Nitrogen) 14 mg/dL (8.4-25.7); Bilirubin, Total 0.3 mg/dL (0.2-1.2); Calc. Creatinine Clearance 0 mL/min (70-130); Calcium 9.2 mg/dL (7.8-10.44); Carbon Dioxide 20 mmol/L (22-29); Chloride 102 mmol/L (98-107); Estimated GFR-MDRD 58; Globulin 2.9 g/dL (2.4-3.5); Glucose 296 mg/dL (70-105); Potassium 4.2 mmol/L (3.5-5.1); Sodium 131 mmol/L (136-145)
== END 2018-05-13 00:56 | disposition home or self-care (01) ==
LOC: LABBT 00:55
PROVIDERS: ATTEND Internal Medicine Cardiovascular Disease
DX: Z01.812 Encounter for preprocedural laboratory examination (principal); R94.39 Abnormal result of other cardiovascular function study
CPT/HCPCS: 80053; 85025

== ENCOUNTER 2018-05-14 05:44 | Day surgery (SDC) | payer BC ==
[2018-05-13 08:43] VITALS: BMI 35.5
[2018-05-14] MEDS ORDERED: Fentanyl 100 MCG/2 ML VIAL ONE (07:13)
[2018-05-14] MEDS ORDERED: Midazolam HCl 2 mg/2 ml Vial ONE (07:13)
[2018-05-14] MEDS ORDERED: Heparin 10,000 UNITS/1 ML VIAL ONE (07:42)
--- NOTE | 2018-05-14 08:10 | CON ---
DATE OF CONSULTATION: Mr. Recinos is a pleasant 57-year-old gentleman, who was seen by Jannie Johnson PA-C HISTORY OF PRESENT ILLNESS: Mr. Recinos continued to have shortness of breath. He had an abnormal stress study. I discussed with Mr. Recinos as well as with Dr. Zack Mauro on how to proceed. Given his abnormal stress study, we would recommend coronary angiography plus PCI. I discussed procedure in full detail with Mr. Recinos. Risks include, but not limited to: , stroke, [place], need for emergency surgery, loss of limb, bleeding, and infection, as well as a reaction to the dye causing kidney failure and needing long-term dialysis. I also discussed the risks of PCI to include all of the above including coronary dissection and perforation in addition to acute stent thrombosis and restenosis. All questions were answered. There were no contraindications to drug-coated stent placement. We will proceed if needed. I did discuss with Dr. Mauro. He is okay to proceeding with carotid surgery on Plavix if needed. Job ID: [id number]
[2018-05-14] MEDS ORDERED: Iopamidol 370 76% 100 ML VIAL ONE (10:51)
== END 2018-05-14 11:10 | disposition home or self-care (01) ==
LOC: CCL 05:44
PROVIDERS: ATTEND Internal Medicine Cardiovascular Disease
PROC: B2101ZZ Fluoroscopy of Single Coronary Artery using Low Osmolar Contrast (ICD-10-PCS; principal; 2018-05-14)
PROC: 4A023N7 Measurement of Cardiac Sampling and Pressure, Left Heart, Percutaneous Approach (ICD-10-PCS; principal; 2018-05-14)
DX: I25.10 Atherosclerotic heart disease of native coronary artery without angina pectoris (principal); I10 Essential (primary) hypertension; I25.2 Old myocardial infarction; E11.9 Type 2 diabetes mellitus without complications; E78.5 Hyperlipidemia, unspecified; G47.30 Sleep apnea, unspecified; F32.9 Major depressive disorder, single episode, unspecified; J45.909 Unspecified asthma, uncomplicated; E66.9 Obesity, unspecified; Z68.35 Body mass index [BMI] 35.0-35.9, adult; F17.290 Nicotine dependence, other tobacco product, uncomplicated; Z90.49 Acquired absence of other specified parts of digestive tract; Z85.828 Personal history of other malignant neoplasm of skin; Z91.018 Allergy to other foods; Z79.82 Long term (current) use of aspirin; Z79.4 Long term (current) use of insulin; Z79.899 Other long term (current) drug therapy; Z98.890 Other specified postprocedural states
CPT/HCPCS: 36416; 93458; 93571; 99152; 99153; C1760; C1769; J0153; J1644; J2250; J3010; Q9967

== ENCOUNTER 2018-05-16 06:17 | Day surgery (SDC) | payer BC ==
[2018-05-15 09:47] VITALS: BMI 35.5
[2018-05-16] MEDS ORDERED: Protamine Sulfate 50 MG/5 ML VIAL ONE (06:35)
[2018-05-16] MEDS ORDERED: Heparin 5,000 UNITS/ML VIAL ONE (06:35)
[2018-05-16] MEDS ORDERED: Fentanyl 250 MCG/5 ML VIAL ONE (06:48)
[2018-05-16] MEDS ORDERED: Albuterol Sulfate 1.25 MG/3 ML NEB ONE (07:04)
[2018-05-16] MEDS ORDERED: Midazolam HCl 2 mg/2 ml Vial ONE (07:08)
[2018-05-16] MEDS ORDERED: PHENYLEPHRINE-NS 100 MCG/ML 10 ML SYRINGE ONE ×2 (08:22→15:48)
[2018-05-16] MEDS ORDERED: Phenylephrine HCL 10 MG/ML VIAL ONE (08:24)
[2018-05-16] MEDS ORDERED: Bupivacaine HCl 0.5%/Epinephrine 1:200,000/PF 30 ml Vial ONE (09:10)
[2018-05-16] MEDS ORDERED: Promethazine HCl 25 MG/ML VIAL SLOW IVP PRN (09:44)
[2018-05-16] MEDS ORDERED: Promethazine HCl 25 MG/ML VIAL IM PRN ×2 (09:44→11:08)
[2018-05-16] MEDS ORDERED: Ondansetron HCl/PF 4 MG/2 ML Vial IVP PRN (09:44)
--- NOTE | 2018-05-16 09:54 | OP ---
DATE OF PROCEDURE: 05/16/2018 PREOPERATIVE DIAGNOSIS: Symptomatic right carotid stenosis. PROCEDURE PERFORMED: Right carotid endarterectomy with bovine patch angioplasty. SERVICE LOSS CONTROL CONSULTANT: None. ANESTHESIA: General. ESTIMATED BLOOD LOSS: Less than 100. DESCRIPTION OF PROCEDURE: After adequate anesthesia had been obtained, the patient was prepped and draped after ultrasonography was used to isolate the level of the carotid bulb. Incision was made, and the carotid artery was quite deep in the neck requiring deep retractors. The common carotid artery was isolated, and dissection was carried cephalad at which time the external carotid artery was encountered and it was actually posterior to the larynx with the cartilage riding over the edge of the external carotid artery. Internal carotid artery was dissected cephalad visualizing hypoglossal nerve and clipping and ligating the small artery that looped around it to allow access. After 7500 units of heparin with a good ACT level, clamps were applied. Arteriotomy was performed in the common carotid artery, and fresh thrombus was sucked out of that vessel. Incision was then carried into the internal carotid artery past calcified plaque and a 12-Dominican shot was then placed. Endarterectomy was performed and I was not happy with the way a taper distally and for this reason, a running 7-0 Prolene suture was used to tack the plaque superiorly. Following this, a bovine patch was used to close the arteriotomy with a running 7-0 Prolene suture. Prior to completing the suture line, the area was thoroughly irrigated. Vessels were backflushed and forward flushed, and flow restored up the external and then internal carotid artery. Protamine 25 mg was given to partially reverse the heparin and after obtaining good hemostasis, the wound was irrigated and closed in layers. Job ID: [id number]
[2018-05-16] MEDS ORDERED: Fentanyl 100 MCG/2 ML VIAL ONE (10:00)
[2018-05-16] MEDS ORDERED: HYDROcodone/Acetaminophen 5/325 mg Tablet PO PRN (11:08)
[2018-05-16] MEDS ORDERED: Ondansetron PF 4 MG/2 ML Vial IVP PRN (11:08)
[2018-05-16] MEDS ORDERED: Dextrose 50% Abboject 50 ML SYRINGE SLOW IVP PRN (11:08)
[2018-05-16] MEDS ORDERED: Phenylephrine 10 MG/NS 250 ML 250 ML IVPB PRN (11:08)
[2018-05-16] MEDS ORDERED: Nitroglycerin 50 MG/250 ML BOT 250 ML IVPB PRN (11:08)
[2018-05-16] MEDS ORDERED: Acetaminophen 325 MG TAB PO PRN (11:08)
[2018-05-16] MEDS ORDERED: Dextrose 5% in Water 1,000 ML IV PRN (11:08)
[2018-05-16] MEDS ORDERED: Fentanyl 100 MCG/2 ML VIAL SLOW IVP PRN ×2 (11:08)
[2018-05-16] MEDS: Ketorolac Tromethamine 30 MG/ML VIAL IVP SCH ×2 (11:52→17:54)
[2018-05-16] MEDS: Sodium Chloride 0.9% 1,000 ML IV SCH ×2 (12:02→20:26)
[2018-05-16] MEDS: Lactated Ringer's 500 ML IV SCH ×2 (12:02→21:24)
[2018-05-16] MEDS: CEFAZOLIN 2 GM in Premix Bag 1 BAG IVPB SCH ×2 (13:01→20:48)
[2018-05-16] MEDS: HYDROcodone/Acetaminophen 5/325 mg Tablet PO PRN ×2 (13:20→20:45)
[2018-05-16] MEDS ORDERED: CEFAZOLIN/Water 2 GM/20 ML SYRINGE SLOW IVP SCH (14:00)
[2018-05-16] MEDS ORDERED: PROPOFOL 200 MG/20 ML VIAL ONE (15:48)
[2018-05-16] MEDS ORDERED: Ondansetron PF 4 MG/2 ML Vial ONE (15:48)
[2018-05-16] MEDS ORDERED: Glycopyrrolate 0.2 MG/ML 5 ML SYRINGE ONE (15:48)
[2018-05-16] MEDS ORDERED: Lidocaine 1% PF 5 ML VIAL ONE (15:48)
[2018-05-16] MEDS ORDERED: Rocuronium Bromide 10 MG/ML (10ML VIAL) ONE (15:48)
[2018-05-16] MEDS ORDERED: Heparin 10,000 UNITS/ 10 ML VIAL ONE (15:48)
[2018-05-16] MEDS ORDERED: metFORMIN 500 MG TAB PO SCH (17:00)
[2018-05-16] MEDS: glipiZIDE 10 MG TAB PO SCH (17:54)
[2018-05-16] MEDS: HumaLOG 300 UNITS/3 ML VIAL SC PRN ×2 (17:55→20:55)
[2018-05-16] MEDS ORDERED: Atorvastatin Calcium 10 MG TAB PO SCH (21:00)
[2018-05-17] MEDS: Ketorolac Tromethamine 30 MG/ML VIAL IVP SCH ×2 (01:00→05:40)
[2018-05-17] MEDS: CEFAZOLIN 2 GM in Premix Bag 1 BAG IVPB SCH (05:41)
[2018-05-17] MEDS: HumaLOG 300 UNITS/3 ML VIAL SC PRN (05:47)
[2018-05-17] MEDS: Lactated Ringer's 500 ML IV SCH (08:46)
[2018-05-17] MEDS: Sodium Chloride 0.9% 1,000 ML IV SCH (08:46)
[2018-05-17] MEDS: glipiZIDE 10 MG TAB PO SCH (08:49)
[2018-05-17 08:50] VITALS: BP 134/70
[2018-05-17] MEDS ORDERED: Insulin Glargine 50 UNITS in Pre-Filled Syringe 1 EACH SC SCH (09:00)
[2018-05-17] MEDS ORDERED: Aspirin 325 mg Enteric Coated Tablet PO SCH (09:00)
[2018-05-17] MEDS ORDERED: INSULIN GLARGINE HUM REC ANLOG 100 UNIT SC SCH (09:00)
[2018-05-17] MEDS ORDERED: Lisinopril 20 MG TAB PO SCH (09:00)
[2018-05-17] MEDS ORDERED: Aripiprazole 2 MG TAB PO SCH (09:00)
[2018-05-17 09:26] VITALS: TEMP 97.8
--- NOTE | 2018-05-17 15:51 | DIS ---
DATE OF ADMISSION: 05/16/2018 DATE OF DISCHARGE: 05/17/2018 PRINCIPAL DIAGNOSIS: Symptomatic right carotid stenosis. PROCEDURES PERFORMED: Right carotid endarterectomy. HISTORY OF PRESENT ILLNESS AND HOSPITAL COURSE: The patient is a 57-year-old man with diabetes and hypertension, who has had two episodes of transient right eye monocular visual disturbance consistent with amaurosis fugax. Carotid ultrasonography suggested bilateral carotid stenosis and he was admitted for elective right carotid endarterectomy. He had an uneventful postoperative recovery in the intensive care unit and today on postoperative day 1, his blood pressures have been under adequate control. His tongue is midline. His voice is normal. His smile is symmetric. He is able to breathe and swallow without any difficulty. His neck wound is clean and dry without any significant swelling and he is able to move all extremities normally. He will be discharged home now to resume his home medications which include aspirin and simvastatin. Job ID: [id number]
== END 2018-05-17 10:10 | disposition home or self-care (01) ==
LOC: UNDOADMIN 06:17 → SURG A 06:17 → SDC 06:17 → EDSTATUS 09:30 → CCU 10:49 → SURG A 10:49 → UNDODISIN 05-17 10:10 → SDC 05-17 10:10
PROVIDERS: ATTEND Thoracic Surgery (Cardiothoracic Vascular Surgery)
PROC: 03CH0ZZ Extirpation of Matter from Right Common Carotid Artery, Open Approach (ICD-10-PCS; principal; 2018-05-16)
DX: I65.21 Occlusion and stenosis of right carotid artery (principal); E11.9 Type 2 diabetes mellitus without complications; I10 Essential (primary) hypertension; F17.290 Nicotine dependence, other tobacco product, uncomplicated; Z91.018 Allergy to other foods; Z90.49 Acquired absence of other specified parts of digestive tract; Z79.82 Long term (current) use of aspirin; Z79.4 Long term (current) use of insulin; Z79.51 Long term (current) use of inhaled steroids; Z79.891 Long term (current) use of opiate analgesic; Z79.899 Other long term (current) drug therapy; Z98.890 Other specified postprocedural states
CPT/HCPCS: 36416; J0670; J1642; J1644; J1825; J1885; J2001; J2250; J2370; J2405; J2704; J2720; J3010

== ENCOUNTER 2018-06-10 06:51 | Outpatient (CLI) | payer OTHER ==
--- NOTE | 2018-06-10 09:19 | ULT ---
ULTRASOUND HEPATIC DOPPLER DUPLEX: Date: 06/10/18 HISTORY: 57-year-old male with cirrhosis. TECHNIQUE: Holley scale, color flow, and spectral analysis, of liver and spleen, and major vessels associated with the liver. FINDINGS: Study limited by shadowing from bowel gas and body habitus. Hepatic echogenicity is within normal padilla its. Gallbladder is surgically absent. Pancreas is completely obscured by shadowing from bowel gas. T here is no splenomegaly. Hepatopetal flow with appropriate portal venous waveforms are demonstrated i n the main, left, and right portal veins, and splenic vein. Hepatofugal flow, with appropriate pulsed Doppler waveforms are demonstrated in the right, middle, an d left hepatic veins. Pulsatile hepatic arterial waveform is demonstrated. Common duct caliber is 3 m m. IMPRESSION: 1. Status post cholecystectomy. 2. Otherwise negative. POS: [facility]
== END 2018-06-10 06:52 | disposition home or self-care (01) ==
LOC: BICULT 06:51
PROVIDERS: ATTEND Internal Medicine Gastroenterology
DX: Z12.11 Encounter for screening for malignant neoplasm of colon (principal); K74.60 Unspecified cirrhosis of liver; K86.1 Other chronic pancreatitis; I65.29 Occlusion and stenosis of unspecified carotid artery; Z90.49 Acquired absence of other specified parts of digestive tract
CPT/HCPCS: 76705

== ENCOUNTER 2018-07-16 09:30 | Inpatient (IN) | payer OTHER ==
[2018-07-17] MEDS ORDERED: Heparin 5,000 UNITS/ML VIAL ONE ×2 (06:22→06:28)
[2018-07-17] MEDS ORDERED: Protamine Sulfate 50 MG/5 ML VIAL ONE (06:27)
[2018-07-17] MEDS ORDERED: Lidocaine 1% (PF) 30 ML VIAL ONE (06:28)
[2018-07-17] MEDS ORDERED: Midazolam HCl 2 mg/2 ml Vial ONE (07:07)
[2018-07-17] MEDS ORDERED: Fentanyl 100 MCG/2 ML VIAL ONE (07:07)
[2018-07-17] MEDS ORDERED: Bupivacaine HCl 0.5%/Epinephrine 1:200,000/PF 30 ml Vial ONE (07:57)
[2018-07-17] MEDS ORDERED: Iopamidol 370 76% 100 ML VIAL ONE (09:49)
[2018-07-17] MEDS ORDERED: PHENYLEPHRINE-NS 100 MCG/ML 10 ML SYRINGE ONE (10:27)
[2018-07-17] MEDS ORDERED: Lidocaine 1% PF 5 ML VIAL ONE (10:27)
[2018-07-17] MEDS ORDERED: Ondansetron PF 4 MG/2 ML Vial ONE (10:27)
[2018-07-17] MEDS ORDERED: Glycopyrrolate 0.2 MG/ML 5 ML SYRINGE ONE (10:27)
[2018-07-17] MEDS ORDERED: Heparin 10,000 UNITS/1 ML VIAL ONE ×2 (10:27→12:04)
[2018-07-17] MEDS ORDERED: Rocuronium Bromide 10 MG/ML (10ML VIAL) ONE (10:27)
[2018-07-17] MEDS ORDERED: Heparin 30,000 units/30 ml VIAL ONE (10:27)
[2018-07-17] MEDS ORDERED: PROPOFOL 200 MG/20 ML VIAL ONE (10:27)
[2018-07-17] MEDS ORDERED: Succinylcholine Chloride 20 MG/ML 10 ml SYRINGE FS ONE (10:27)
[2018-07-17] MEDS ORDERED: ePHEDrine 50 MG/ML VIAL ONE (10:27)
[2018-07-17] MEDS ORDERED: Communication Order-Pharmacy FS ONE (11:56)
[2018-07-17] MEDS ORDERED: Labetalol HCl 100 MG/20 ML VIAL SLOW IVP PRN (11:56)
[2018-07-17] MEDS ORDERED: Heparin 25,000 units/D5W 500 ML IVPB SCH (12:45)
[2018-07-17] MEDS ORDERED: Heparin 10,000 UNITS/ 10 ML VIAL SLOW IVP SCH (12:45)
[2018-07-17] MEDS ORDERED: methylPREDNISolone Sod Succ/PF 125 MG/2 ML VIAL IVP SCH (13:15)
[2018-07-17] MEDS ORDERED: Aspirin 325 mg Enteric Coated Tablet PO SCH (13:15)
[2018-07-17 13:56] LABS: Hemoglobin 10.6 g/dL (14.0-18.0); Platelet Count 178 thou/uL (130-400)
[2018-07-17] MEDS: Sodium Chloride 0.9% 1,000 ML IV SCH (14:15)
[2018-07-17 14:17] LABS: PTT Greater than 250.0 SEC (22.9-36.1)
--- NOTE | 2018-07-17 14:19 | OP ---
DATE OF PROCEDURE: 07/17/2018 PREOPERATIVE DIAGNOSIS: The patient is status post left carotid endarterectomy and post anesthetic extubation, was unable to move his right arm. PROCEDURE PERFORMED: Left neck exploration. ANESTHESIA: General. ESTIMATED BLOOD LOSS: 150 mL. DESCRIPTION OF PROCEDURE: After adequate anesthesia had been reobtained, the patient's left neck was prepped and draped. Incision was reopened. Retractor was placed. There was good pulsations and appearance of the carotid artery, both internal, external, and common. Doppler signals were present in all three vessels and stopped with occlusion of the common carotid artery. At that time, the patient was given 10,000 units of heparin after an ACT came back at 180, an additional 5000. The proximal arteriotomy was opened after controlling the vessels and there was no thrombus within the lumen of the vessels. There was excellent backflow from the external and internal carotid artery. Attempt to place a shunt was initially performed, but felt to be inadvisable and for this reason, the proximal end of the patch was then resecured with a running Prolene suture. Vessels were backflushed and forward flushed and then flow was restored up the external and then internal carotid artery. Heparin was not reversed. The wound was irrigated. Hemostasis was obtained. A small [place] drain placed and the wound was closed and the patient was to be taken to the cardiac label operator for angiography per Dr. Jay to examine the intracranial vessel. Job ID: [id number]
[2018-07-17] MEDS ORDERED: Aspirin 300 MG Suppository ONE (14:20)
[2018-07-17 15:07] LABS: Actual Bicarbonate (HCO3a) 20.8 mEq/L (22-28); Base Excess (BEa) -5.4 mEq/L (-2.0 to +3.0); CO2 Tension 43.3 mmHg (35.0-45.0); Calcium, Ionized 1.07 mmol/L (1.12-1.30); Carboxyhemoglobin (COHb) 0.3 gm% (0.0-3.0); O2 Tension (PaO2) 268.6 mmHg (80.0-100.0); Potassium - ABG Lab 4.57 mmol/L (3.70-5.30)
[2018-07-17 15:09] LABS: Puncture Site ALINE
[2018-07-17] MEDS ORDERED: Heparin 25,000 units/D5W 500 ML IV SCH (15:15)
[2018-07-17] MEDS ORDERED: DC ALL OTHER HEPARIN PRODUCTS FS SCH (15:15)
[2018-07-17 15:25] LABS: PTT 229.9 SEC (22.9-36.1)
--- NOTE | 2018-07-17 16:36 | CON ---
DATE OF CONSULTATION: 07/17/2018 CONSULTING PHYSICIAN: Zack Jay MD IMPRESSION: Left middle cerebral artery stroke, status post endarterectomy. PLAN: 1. CT scan of the brain tomorrow. 2. Follow clinical course. HISTORY OF PRESENT ILLNESS: Mr. Recinos is a 57-year-old man, who was brought in for his second endarterectomy. He reportedly had a left 80% stenosis. He had previously successful right endarterectomy done about a month ago. Postoperatively, he was noted to have some neurologic deficits. Dr. Jay was called in to assess it. A proximal clot was identified, but attempts to retrieve it were unsuccessful. The patient has been moved to the ICU. He remains lethargic. PAST MEDICAL HISTORY: As per chart. ALLERGIES: NONE. SOCIAL HISTORY: No tobacco or alcohol use. FAMILY HISTORY: Not obtainable. REVIEW OF SYSTEMS: Not obtainable. PHYSICAL EXAMINATION: GENERAL: He is a somewhat overweight middle-aged man, who appears older than his stated age. HEENT: Pupils are equal and reactive. Conjunctivae are clear. Eyes are conjugate, midposition. He is on a CPAP machine. NECK: Supple. EXTREMITIES: Right great toe is absent. No edema is present. NEUROLOGIC: He is very lethargic, getting to awaken briefly and to squeeze my hand on the left. His tone appeared to be diminished on the right side. No abnormal movements were seen. IMAGING: EKG shows sinus rhythm. SUMMARY: A middle-aged male with acute left MCA stroke due to a thromboembolic event. Prognosis is guarded at this point. I will obtain a CAT scan tomorrow and reassess. Job ID: [id number]
[2018-07-17] MEDS ORDERED: Dextrose 5% in Water 1,000 ML IV PRN ×2 (16:39→16:40)
[2018-07-17] MEDS ORDERED: Dextrose 50% Abboject 50 ML SYRINGE SLOW IVP PRN ×2 (16:39→16:40)
[2018-07-17] MEDS: HumaLOG 300 UNITS/3 ML VIAL SC PRN ×2 (17:06→22:36)
[2018-07-17] MEDS: Heparin 25,000 units/D5W 500 ML IV SCH (20:19)
--- NOTE | 2018-07-17 21:51 | CON ---
DATE OF CONSULTATION: 07/17/2018 HISTORY OF PRESENT ILLNESS: Mr. Recinos is an unfortunate 57-year-old male who underwent carotid endarterectomy today. He had calcified vascular disease. He had a plaque embolus that left him hemiplegic when he was awakening from surgery. He went back to the OR and subsequently to the rn cardiac cath for an attempted retrieval of the plaque. He did have flow around it, but retrieval was not successful. PAST MEDICAL HISTORY: 1. Remarkable for cardiac catheterization done in May of this year. 2. History of resection of a right upper chest melanoma in April of this year by Dr. Soto. 3. History of hypertension. 4. History of diabetes. 5. History of right great toe amputation in October 2017. MEDICATIONS: Reviewed. SOCIAL HISTORY: He is nonsmoker and nondrinker. ALLERGIES: NO DRUG ALLERGIES. FAMILY HISTORY: Negative for lung disease in early age. REVIEW OF SYSTEMS: Ten point review of systems completed, not obtainable. He is somnolent. PHYSICAL EXAMINATION: GENERAL: Mr. Recinos is an unfortunate 57-year-old male. HEENT: Pupils react. VITAL SIGNS: He does have a prolonged expiratory phase, heart rate is 80, respiratory rates in the teens, oximetry is 99, blood pressure 135/67. NEUROLOGIC: He is hemiplegic on the right. LUNGS: Clear. HEART: Regular rhythm. ABDOMEN: Soft and nontender. EXTREMITIES: Warm. LABORATORY DATA: White count on the is 5.8. Today his hemoglobin is 10.6, yesterday 11.7. Electrolytes: Yesterday, sodium 137, potassium 4.4, chloride 104, bicarb 20, BUN 16, creatinine 1.43. pH today 7.3, CO2 43, PO2 268. IMPRESSION: 1. Embolic cerebrovascular accident. 2. Prolonged expiratory phase ? chronic obstructive pulmonary disease. 3. Probable sleep apnea, we placed him on BiPAP. 4. Diabetes. 5. Hypertension. 6. I will be happy to follow the other physicians caring for him. His prognosis is guarded. He is adequately protecting his airway. There is no indication for re-intubation at this point. TIME SPENT: This is a 70-minute consult, with greater than 50% of the time spent on the unit coordinating care. Job ID: [id number] [facility]
[2018-07-17] MEDS: Atorvastatin Calcium 40 MG TAB PO SCH (22:46)
[2018-07-18] MEDS: HumaLOG 300 UNITS/3 ML VIAL SC PRN ×3 (05:55→18:08)
[2018-07-18] MEDS: CEFAZOLIN 2 GM in Premix Bag 1 BAG IVPB SCH ×3 (05:55→21:29)
[2018-07-18] MEDS ORDERED: CEFAZOLIN 1 GM VIAL SLOW IVP SCH (06:00)
[2018-07-18] MEDS: Sodium Chloride 0.9% 1,000 ML IV SCH ×2 (07:19→16:38)
--- NOTE | 2018-07-18 07:52 | CT ---
CT BRAIN WITHOUT CONTRAST: Date: 07/18/18 INDICATION: History of CVA, status post TPA administration. COMPARISON: Prior exam dated 08/13/17. FINDINGS: There are prominent hypodensities involving the left caudate head, left globus pallidus, and left ins ular cortex. There is also loss of the banks-white differentiation of the anterior left temporal lobe. This is consistent with an acute left MCA distribution infarct. There is a calcified 3.4 mm density seen within the region of the left MCA, which was not seen on the prior examination, suspicious for e ither a deflected calcified thrombus versus interval development of a calcified plaque in this region . No definite intracranial hemorrhage is evident. There is some vasogenic edema seen involving the di stribution of the acute left MCA CVA. No midline shift is evident. No hydrocephalus is noted. The sku ll and extracranial soft tissues are unremarkable appearing. IMPRESSION: 1. Interval development of a left MCA distribution infarct with infarctions with associated vasogeni c edema involving the left caudate head, left globus pallidus, left insular cortex, and anterior left temporal lobe. No intracranial hemorrhage is grossly evident. 2. There is a small focus of calcification seen in the expected region of the left M1 segment, suspi cious for either a displaced calcified thrombus versus intervally developed atherosclerotic plaque. Findings called to GUSTABO Claire, at 0508 hours on 07/18/18. CODE CR. POS: [facility]
[2018-07-18 07:53] LABS: Anion Gap 12 mmol/L (10-20); BUN (Urea Nitrogen) 14 mg/dL (8.4-25.7); Calc. Creatinine Clearance 122 mL/min (70-130); Calcium 8.4 mg/dL (7.8-10.44); Carbon Dioxide 21 mmol/L (22-29); Cardiac Risk 2.4 (Less than 4.5); Chloride 108 mmol/L (98-107); Cholesterol 115 mg/dl (< 200 Desired); Estimated GFR-MDRD 69; Glucose 195 mg/dL (70-105); HDL Cholesterol 47 mg/dL (>60 Neg Risk); LDL Cholesterol, Calculated 45 mg/dL; Potassium 4.2 mmol/L (3.5-5.1); Sodium 137 mmol/L (136-145); Triglycerides 116 mg/dL (Less than 150)
[2018-07-18] MEDS: Aspirin 325 mg Enteric Coated Tablet PO SCH (09:56)
[2018-07-18] MEDS: Aspirin 300 MG Suppository PR SCH (09:56)
--- NOTE | 2018-07-18 10:34 | PRG ---
DATE OF SERVICE: 07/18/2018 SUBJECTIVE: The patient has recovered a lot of his neurologic deficits, but remains with an expressive aphasia. I can get him to move his left leg and left arm appropriately as well as his right arm and right leg. OBJECTIVE: VITAL SIGNS: On exam, his temperature is 98.1, pulse 80, and blood pressure 122/64. A 24-hour intake 13 8, output 2785. HEENT: Has a slight facial droop. NECK: No JVD. CHEST: Clear to auscultation. CARDIAC: S1 and S2, regular. ABDOMEN: Soft. EXTREMITIES: No edema. LABORATORY DATA: Sodium 137, potassium 4.3, BUN 14, creatinine 1.1, and glucose 195. ASSESSMENT: 1. Status post embolic stroke. 2. Status post carotid endarterectomy. 3. Possible obstructive sleep apnea - so far has not needed BiPAP. PLAN: 1. Continue in ICU on a heparin drip. 2. BiPAP is on standby if needed. We are continuing to follow. Job ID: [id number]
--- NOTE | 2018-07-18 10:59 | CCL ---
RADIOLOGY PROCEDURE NOTE: DATE: 07/17/18 SURGEON: Zack Jay M.D. PROGRAM EVALUATION CONSULTANT: None. INDICATION: Hemiparesis. DIAGNOSIS: Right hemiparesis. PROCEDURE: Diagnostic cerebral angiography with mechanical thrombectomy. ANESTHESIA: General. TECHNIQUE: The patient was already under anesthesia, having undergone recent operative procedure. He was brought to the laborer starch factory, where both groins were prepped and draped in the usual sterile fashion. A 5 American Micropuncture set was then used to gain access to the right common femoral artery. Using the Seldinge r technique, a 5 American sheath was placed. A 5 American diagnostic catheter was passed into the left in ternal carotid artery where an AP and lateral angiogram was performed. Angiography revealed the prese nce of a inocclusive thrombus at the location of the bifurcation of the left middle cerebral artery. The catheter was then removed and the 5 American sheath was exchanged for an 8 American sheath. An 8 Fren ch Concentric guide catheter was passed over a long Berenstein catheter, which was passed over a guid ewire, which was carefully placed into the left internal carotid artery. A Trevo mechanical thrombect liz device was deployed a total of 3 times. There was difficulty getting into the inferior branch. Al l pass attempts were made via the superior branch. At no time was there retrieval of soft clot. There was some difficulty at times passing the inocclusive thrombus, indicating it was likely an organized clot. The superior and inferior branches continued to fill. The inferior branch filled more sluggish ly than the superior branch. All other branches filled normally. IMPRESSION: The patient underwent angiography. He also underwent three passes of mechanical thrombectomy with the Trevo device. There was not removal of the inocclusive thrombus. There remains perfusion of the midd le cerebral artery territory of the superior and inferior branches, although it is more sluggish than under normal circumstances.
--- NOTE | 2018-07-18 12:21 | OP ---
DATE OF PROCEDURE: 07/17/2018 PREOPERATIVE DIAGNOSIS: Severe left carotid stenosis. POSTOPERATIVE DIAGNOSIS: Severe left carotid stenosis. PROCEDURE PERFORMED: Left carotid endarterectomy with bovine patch angioplasty. ANESTHESIA: General. ESTIMATED BLOOD LOSS: Less than 100. DESCRIPTION OF PROCEDURE: After adequate anesthesia had been obtained, shoulder roll was placed and the patient's head was turned to the right, although it was not very flexible. He was prepped and draped following ultrasound identification of the level of the carotid bulb. Following this, incision was made and carried down through the platysma. Sternocleidomastoid muscle was rotated laterally. Meyerding retractors were required due to the depth of the wound. Facial vein was quite enlarged and was ligated, clipped and divided. Common, internal, and external carotid arteries were identified with the internal carotid artery being identified distal to the palpable calcium. Hypoglossal nerve was not specifically identified. Following 7500 units of heparin, the initial ACT level returned subtherapeutic. An additional 5000 units of heparin was given. Clamps were applied. Arteriotomy was performed. There was dense calcification and Metzenbaum scissors were required to open the artery. Following this, the area was aspirated and a 12-Swedish shot was advanced into the internal and then common carotid artery. Endarterectomy was then performed and there was nice tapering distally. The area was thoroughly irrigated with heparin saline and after removing any loose debris, the bovine patch was used to close the arteriotomy. Prior to completing the suture line, the shunt was removed and the vessels were backflushed and forward flushed. Flow was then restored up the external and then internal carotid artery. Heparin was partially reversed with protamine and after obtaining good hemostasis, the wound was irrigated and closed in layers. Job ID: [id number]
[2018-07-18] MEDS: Heparin 25,000 units/D5W 500 ML IV SCH (14:03)
[2018-07-18] MEDS ORDERED: Clopidogrel Bisulfate 75 MG TAB PO SCH (17:15)
[2018-07-18] MEDS ORDERED: Ondansetron PF 4 MG/2 ML Vial SLOW IVP PRN (19:29)
[2018-07-18] MEDS: Atorvastatin Calcium 40 MG TAB PO SCH (21:29)
[2018-07-19] MEDS: HumaLOG 300 UNITS/3 ML VIAL SC PRN ×5 (00:09→19:58)
[2018-07-19] MEDS: Sodium Chloride 0.9% 1,000 ML IV SCH ×2 (02:15→17:48)
[2018-07-19] MEDS: Heparin 25,000 units/D5W 500 ML IV SCH (02:15)
[2018-07-19] MEDS: CEFAZOLIN 2 GM in Premix Bag 1 BAG IVPB SCH ×3 (05:49→21:03)
[2018-07-19] MEDS: Aspirin 325 mg Enteric Coated Tablet PO SCH (08:51)
[2018-07-19] MEDS ORDERED: Clopidogrel Bisulfate 75 MG TAB PO SCH (09:00)
[2018-07-19] MEDS: Aspirin 300 MG Suppository PR SCH (10:40)
--- NOTE | 2018-07-19 10:50 | MRI ---
MRI BRAIN NONCONTRAST: INDICATIONS: Ischemic stroke. COMPARISON: Reference made to head CT from the previous day. FINDINGS: There is multifocal restricted diffusion involving the left MCA territory with multifocal cortical an d subcortical white matter. Foci of restriction, as well as intense restriction involving the deep b rain nuclei of the lentiform and caudate nuclei. There is intervening restriction of the internal ca psule, notable the posterior limb, as well. There is multifocal punctate susceptibility at the level of the left lentiform nucleus, indicating hemorrhagic transformation. There is no significant shift of midline. Mild chronic ischemic disease of the cerebral white matter is present. There is hetero geneous signal of the left middle cerebral flow void. IMPRESSION: Acute multifocal, prominent-sized region of ischemia of the left middle cerebral artery territory, wi th a component of hemorrhagic transformation, localizing to the left lentiform nucleus. Therefore, r ecommend close continued followup with noncontrast CT head, to exclude size progression of hemorrhage . Telephone call of findings placed to the patient's physician, Riky Smith M.D., at the time of the interpretation ([id number] hours) on 07/19/2018. CODE CR
[2018-07-19] MEDS: Atorvastatin Calcium 40 MG TAB PO SCH (19:58)
[2018-07-20] MEDS: CEFAZOLIN 2 GM in Premix Bag 1 BAG IVPB SCH (05:03)
[2018-07-20 05:05] LABS: #Eosinphils 0.1 thou/uL (0.0-0.7); #Lymphocytes 1.6 thou/uL (1.20-3.40); #Monocytes 0.5 thou/uL (0.11-0.59); #Neutrophils 4.9 thou/uL (1.40-6.50); %Basophils 0.4 % (0.0-1.0); %Eosinophils 1.2 % (0.0-10.0); %Monocytes 7.4 % (0.0-10.0); %Neutrophils 67.9 % (42.0-75.0); Hemoglobin 9.8 g/dL (14.0-18.0); Mean Corpuscular HGB CONC 33.2 g/dL (32.0-36.0); Mean Corpuscular Hemoglobin 27.5 pg (27.0-31.0); Mean Corpuscular Volume 82.7 fL (78.0-98.0); Mean Platelet Volume 8.1 fL (7.4-10.4); Platelet Count 159 thou/uL (130-400); RBC Distribution Width 13.2 % (11.5-14.5); Red Blood Cell (RBC) Count 3.58 mill/uL (4.70-6.10); White Blood Cell (WBC) Count 7.1 thou/uL (4.8-10.8)
[2018-07-20 05:18] LABS: Anion Gap 13 mmol/L (10-20); BUN (Urea Nitrogen) 10 mg/dL (8.4-25.7); Calc. Creatinine Clearance 145 mL/min (70-130); Calcium 8.9 mg/dL (7.8-10.44); Carbon Dioxide 22 mmol/L (22-29); Chloride 106 mmol/L (98-107); Estimated GFR-MDRD 86; Glucose 193 mg/dL (70-105); Potassium 3.9 mmol/L (3.5-5.1); Sodium 137 mmol/L (136-145)
[2018-07-20] MEDS: HumaLOG 300 UNITS/3 ML VIAL SC PRN ×4 (05:41→17:25)
[2018-07-20] MEDS: Sodium Chloride 0.9% 1,000 ML IV SCH (06:15)
--- NOTE | 2018-07-20 08:11 | CT ---
CT OF HEAD NONCONTRAST: INDICATION: Hemorrhagic infarction, followup. COMPARISON: Reference is made to recent MRI and CT brain exams. FINDINGS: There has been interval evolution cytotoxic edema of the left basal ganglia and left insular region. There is internal subtle increased density which corresponds to the hemorrhagic susceptibility on th e preceding brain MRI exam. Associated mild mass effect with effacement of the left lateral ventricl e present. There is approximately 2 mm of rightward subfalcine herniation at the level of the septum pellucidum. The exam is otherwise similar. IMPRESSION: Evolving recent infarction of left basal ganglia and left insula with slight internal density related to hemorrhagic transformation which has been depicted on preceding brain MRI. There is mild associa carol mass effect and midline shift. POS: [facility]
[2018-07-20] MEDS: Aspirin 300 MG Suppository PR SCH (08:13)
[2018-07-20] MEDS: Aspirin 325 mg Enteric Coated Tablet PO SCH (08:13)
--- NOTE | 2018-07-20 09:23 | PRG ---
DATE OF SERVICE: 07/20/2018 SUBJECTIVE: The patient is doing well. No acute complaints. OBJECTIVE: VITAL SIGNS: Temperature is 98.0, pulse 61, blood pressure 157/78, O2 saturation 98%. HEENT: Grossly diminished right-sided facial droop. CARDIAC: S1, S2. Regular. LUNGS: Clear. ABDOMEN: Soft, nontender. EXTREMITIES: No edema. NEUROLOGICAL: He appears to have recovered the strength in his arm. LABORATORY DATA: White blood cell count 7.1, hematocrit 29.6, and platelet count 159. Sodium 137, potassium 3.9, chloride 106, CO2 of 23, BUN 10, creatinine 0.9, glucose 193. ASSESSMENT: Status post embolic stroke after carotid endarterectomy. PLAN: Transfer to stroke rehab when okay with CV surgery. Job ID: [id number]
[2018-07-20] MEDS: Clopidogrel Bisulfate 75 MG TAB PO SCH (10:09)
[2018-07-20] MEDS: Acetaminophen 325 MG TAB PO PRN (22:42)
[2018-07-20] MEDS: Atorvastatin Calcium 40 MG TAB PO SCH (22:42)
[2018-07-21] MEDS: HumaLOG 300 UNITS/3 ML VIAL SC PRN ×4 (06:06→21:45)
--- NOTE | 2018-07-21 09:29 | PRG ---
DATE OF SERVICE: 07/19/2018 SUBJECTIVE: expressive aphasia . OBJECTIVE: 24 hour intake; 3683 input, ouput 3930 . NECK: No JVD. LUNGS: Clear. CARDIAC: S1 and S2. Regular. ABDOMEN: Soft, obese, nontender. EXTREMITIES: No edema. 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 Has expressive aphasia. LABORATORY DATA: PTT of 76.4. Chemistry was not done today. ASSESSMENT: 1. Status post embolic stroke after carotid endarterectomy. 2. Currently heparinized after stroke. PLAN: Okay to transfer to stroke rehab at any time from my standpoint. Pulmonary issues are stable. We will continue to follow. Job ID: [id number]
[2018-07-21] MEDS: glipiZIDE 10 MG TAB PO SCH ×2 (09:47→16:40)
[2018-07-21] MEDS: Aspirin 325 mg Enteric Coated Tablet PO SCH (15:42)
[2018-07-21] MEDS: Clopidogrel Bisulfate 75 MG TAB PO SCH (15:43)
[2018-07-21] MEDS: Acetaminophen 325 MG TAB PO PRN (16:40)
[2018-07-21] MEDS: Atorvastatin Calcium 40 MG TAB PO SCH ×2 (21:41→21:44)
[2018-07-22] MEDS ORDERED: Clopidogrel Bisulfate 75 MG TAB PO SCH (09:00)
[2018-07-22] MEDS: glipiZIDE 10 MG TAB PO SCH ×2 (09:25→16:42)
[2018-07-22] MEDS: Aspirin 325 mg Enteric Coated Tablet PO SCH (09:25)
[2018-07-22] MEDS: HumaLOG 300 UNITS/3 ML VIAL SC PRN ×3 (12:15→22:43)
--- NOTE | 2018-07-22 14:35 | PRG ---
DATE OF SERVICE: 07/22/2018 SUBJECTIVE: Jean Recinos has no complaints. He is ambulating without assistance. He still has an expressive dysarthria and is doing a lot a word searching. OBJECTIVE: VITAL SIGNS: He is afebrile. Heart rate 75, respiratory rate 18, oximetry is 97% on room air, blood pressure 139/82. LUNGS: Clear. HEART: Regular rhythm. ABDOMEN: Soft. IMPRESSION: Status post embolic cerebrovascular accident, slowly improving clinically. I am amazed at the progress that he has made in the last few days. We will continue to follow. Job ID: [id number]
[2018-07-22] MEDS: Atorvastatin Calcium 40 MG TAB PO SCH ×2 (22:32)
[2018-07-22] MEDS: Acetaminophen 325 MG TAB PO PRN (22:43)
[2018-07-23] MEDS: HumaLOG 300 UNITS/3 ML VIAL SC PRN ×3 (05:31→22:08)
[2018-07-23] MEDS: glipiZIDE 10 MG TAB PO SCH ×2 (10:22→19:53)
[2018-07-23] MEDS: Aspirin 325 mg Enteric Coated Tablet PO SCH (10:23)
[2018-07-23 14:37] VITALS: BMI 34.0
[2018-07-23] MEDS: Atorvastatin Calcium 40 MG TAB PO SCH (22:08)
[2018-07-24] MEDS: Acetaminophen 325 MG TAB PO PRN ×2 (02:27→08:58)
[2018-07-24] MEDS: HumaLOG 300 UNITS/3 ML VIAL SC PRN ×3 (06:00→17:30)
[2018-07-24] MEDS: glipiZIDE 10 MG TAB PO SCH ×2 (08:58→17:29)
[2018-07-24] MEDS: Aspirin 325 mg Enteric Coated Tablet PO SCH (08:58)
[2018-07-24] MEDS: metFORMIN 500 MG TAB PO SCH ×2 (08:59→17:29)
[2018-07-24] MEDS ORDERED: Insulin Glargine 100 UNITS in Pre-Filled Syringe 1 EACH SC SCH (09:00)
[2018-07-24] MEDS ORDERED: INSULIN GLARGINE HUM REC ANLOG 100 UNIT SC SCH (09:00)
[2018-07-24 16:43] VITALS: BP 134/77; TEMP 98.3
--- NOTE | 2018-07-25 01:18 | DIS ---
DATE OF ADMISSION: 07/17/2018 DATE OF DISCHARGE: 07/24/2018 HOSPITAL COURSE: This is a 57-year-old gentleman, who was admitted on 07/17, for elective carotid endarterectomy which was performed on the left. Immediately post procedure, while still in the operating room, he was noted to not be moving his right side and was placed back on the operating room table and left neck explored where he had good Doppler signals in his internal carotid artery. The patch was reopened and there was no thrombus or any abnormalities at that site. 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 Jay and angiography demonstrated a plaque that had dislodged from his carotid system proximally and lodged in his middle cerebral artery, but there was good flow around this site. He was taken to the ICU where he was extubated. His right arm and leg function gradually returned to normal over the ensuing days, although his speech was still impaired with expressive aphasia, although it was showing some signs of improvement during his hospitalization. Transfer to inpatient rehab was denied due to good functional status and the patient is to be discharged home today on his admitting medications with followup for outpatient speech therapy. He will follow up with me in 2-3 weeks. His incision is healing nicely with some bruising related to anticoagulation which was given perioperatively. Discharge and followup instructions have been given. Job ID: [id number]
== END 2018-07-24 17:45 | disposition home or self-care (01) | DRG 25 ==
LOC: SURG A 07-17 05:53 → CCU 07-17 11:30 → 2SE 07-20 20:34
PROVIDERS: ADMIT Thoracic Surgery (Cardiothoracic Vascular Surgery); ATTEND Thoracic Surgery (Cardiothoracic Vascular Surgery)
PROC: 03CL0ZZ Extirpation of Matter from Left Internal Carotid Artery, Open Approach (ICD-10-PCS; principal; 2018-07-17)
PROC: 03CL3ZZ Extirpation of Matter from Left Internal Carotid Artery, Percutaneous Approach (ICD-10-PCS; 2018-07-17)
PROC: 03UL0JZ Supplement Left Internal Carotid Artery with Synthetic Substitute, Open Approach (ICD-10-PCS; 2018-07-17)
PROC: 03JY0ZZ Inspection of Upper Artery, Open Approach (ICD-10-PCS; 2018-07-17)
DX: I65.22 Occlusion and stenosis of left carotid artery (principal); I63.9 Cerebral infarction, unspecified; G81.91 Hemiplegia, unspecified affecting right dominant side; I10 Essential (primary) hypertension; E11.9 Type 2 diabetes mellitus without complications
CPT/HCPCS: 36415; 36416; 37184; 70450; 70551; 80048; 80061; 82805; 85014; 85018; 85025; 85027; 85049; 85730; 94640; 94660; C1757; C1769; C1887; J0670; J0690; J1642; J1644; J1825; J2001; J2250; J2405; J2704; J2720; J2930; J3010; J3490; J7620; Q9967

== ENCOUNTER 2018-08-29 13:15 | Outpatient (CLI) | payer OTHER ==
--- NOTE | 2018-08-29 14:38 | CT ---
CT Brain WO Con: 08/29/2018 12:00 AM CLINICAL HISTORY: New onset stroke. COMPARISON: Head CT 20 July 2018 FINDINGS: Hemorrhage: No acute hemorrhage. Ventricular system: Interval decreased mass effect upon the left lateral ventricle. Developing mild e x vacuo dilatation of left frontal horn.. Cerebral parenchyma: Redemonstration of left MCA distribution infarction, late subacute to chronic in timeframe with developing encephalomalacia Midline shift: None. Mass: No mass effect. Calvarium: Normal. Visualized Paranasal sinuses: Clear. IMPRESSION: Continued interval evolution of left MCA distribution infarction, with interval resolution of prior m ass effect, and developing encephalomalacia, as well as ex vacuo dilatation of left lateral ventricle.
== END 2018-08-29 13:16 | disposition home or self-care (01) ==
LOC: BICCT 13:15
PROVIDERS: ATTEND Family Medicine
DX: I63.9 Cerebral infarction, unspecified (principal); G93.89 Other specified disorders of brain
CPT/HCPCS: 70450

== ENCOUNTER 2018-11-10 07:14 | Outpatient (CLI) | payer OTHER ==
--- NOTE | 2018-11-10 09:48 | ULT ---
HEPATIC DOPPLER: HISTORY: Cirrhosis. COMPARISON: 06/10/2018 TECHNIQUE: Holley-scale, color-flow, Doppler imaging, and spectral wave-form analysis is performed in the liver. FINDINGS: Increased echogenicity of the hepatic parenchyma may be due to hepatic steatosis or hepatocellular di sease. Subsequent limited evaluation for hepatic masses and intrahepatic biliary dilatation. Right hepatic lobe is enlarged, measuring 19.2 cm. Surgically absent gallbladder. Common bile duct diameter is 0.45 cm. The main portal vein is patent. The spleen is enlarged, measuring 14.1 x 7 x 7.2 cm. Hepatic Doppler: There is patency and appropriate directional flow of the main portal vein, left por griffin vein, right portal vein, left hepatic vein, middle hepatic vein, right hepatic vein, and hepatic artery. The splenic vein and artery are also patent with appropriate directional flow. IMPRESSION: 1. Normal hepatic Doppler. 2. Hepatosplenomegaly. POS: [facility]
== END 2018-11-10 07:15 | disposition home or self-care (01) ==
LOC: BICULT 07:14
PROVIDERS: ATTEND Physician Assistant Medical
DX: K74.60 Unspecified cirrhosis of liver (principal); K86.1 Other chronic pancreatitis; R16.2 Hepatomegaly with splenomegaly, not elsewhere classified
CPT/HCPCS: 76705

== ENCOUNTER 2019-05-29 04:36 | Observation (INO) | payer OTHER ==
[2019-05-29 05:18] LABS: #Eosinphils 0.2 thou/uL (0.0-0.7); #Lymphocytes 2.1 thou/uL (1.20-3.40); #Monocytes 0.6 thou/uL (0.11-0.59); #Neutrophils 3.5 thou/uL (1.40-6.50); %Basophils 0.4 % (0.0-1.0); %Eosinophils 3.3 % (0.0-10.0); %Lymphocytes 32.6 % (21.0-51.0); %Monocytes 9.7 % (0.0-10.0); Hemoglobin 11.6 g/dL (14.0-18.0); Mean Corpuscular HGB CONC 32.9 g/dL (32.0-36.0); Mean Corpuscular Volume 85.1 fL (78.0-98.0); Platelet Count 194 thou/uL (130-400); RBC Distribution Width 14.4 % (11.5-14.5); Red Blood Cell (RBC) Count 4.14 mill/uL (4.70-6.10); White Blood Cell (WBC) Count 6.4 thou/uL (4.8-10.8)
[2019-05-29 06:10] LABS: ALT (SGPT) 39 U/L (8-55); AST (SGOT) 34 U/L (5-34); Albumin 4.6 g/dL (3.5-5.0); Alkaline Phosphatase 76 U/L (40-110); Anion Gap 17 mmol/L (10-20); BUN (Urea Nitrogen) 19 mg/dL (8.4-25.7); Bilirubin, Total 0.4 mg/dL (0.2-1.2); Calc. Creatinine Clearance 0 mL/min (70-130); Calcium 9.3 mg/dL (7.8-10.44); Carbon Dioxide 24 mmol/L (22-29); Chloride 101 mmol/L (98-107); Estimated GFR-MDRD 45; Globulin 2.8 g/dL (2.4-3.5); Glucose 119 mg/dL (70-105); Potassium 4.8 mmol/L (3.5-5.1); Protein, Total 7.4 g/dL (6.0-8.3); Sodium 137 mmol/L (136-145)
--- NOTE | 2019-05-29 08:10 | RAD ---
CHEST 1 VIEW: Date: 05/29/2019 HISTORY: Syncopal episode. COMPARISON: Chest radiograph dated 08/03/2017. FINDINGS: Low lung volumes and the cephalad projection of the examination accentuates the heart size. Lungs are clear. No pleural effusion or pneumothorax is evident. No acute osseous abnormality is evident. IMPRESSION: No acute abnormality. POS: [facility]
--- NOTE | 2019-05-29 08:20 | CT ---
CT OF THE BRAIN WITHOUT CONTRAST: INDICATION: A 58-year-old male with syncopal episode. COMPARISON: Prior exam dated 08/29/2018. FINDINGS: There is encephalomalacia involving the previously seen left MCA distribution infarct. Encephalomala cathryn of the left insular cortex, anterior left temporal lobe, and portions of the posterior left front al lobe are now present. There is also small lacunar infarction in the region of the left caudate he ad that is remote with some ex vacuo dilatation of the left lateral ventricle. No definite acute inf arct, hemorrhage, or hydrocephalus is present. Septum pellucidum and third ventricle are midline. M astoid air cells and paranasal sinuses are clear. The skull is intact. IMPRESSION: 1. No acute intracranial abnormality. 2. Encephalomalacia involving the previously seen left middle cerebral artery distribution infarct. POS: [facility]
--- NOTE | 2019-05-29 08:24 | CT ---
CT OF THE PELVIS WITHOUT CONTRAST: INDICATION: History of syncopal episode with pain in the lower back, buttock regions, and head. FINDINGS: There is reticulation of the lower anterior abdominal wall subcutaneous fat likely related to injecti ons. No definite large soft tissue contusion is evident. There are calcifications of the vas defere ns, likely related to being a diabetic male. There is a mild amount of retained stool within the col on with a few scattered colonic diverticula. No free fluid is evident. No enlarged lymph nodes are present. There are moderate calcifications involving the abdominopelvic vasculature. No definite ac quileute fracture is evident. There is mild scattered degenerative and osteoarthritic change. IMPRESSION: 1. No acute fracture evident. 2. Chronic findings as above. POS: [facility]
[2019-05-29 08:32] VITALS: BMI 34.7
[2019-05-29 09:57] LABS: Troponin I 0.011 ng/mL (< 0.028)
[2019-05-29] MEDS ORDERED: Dextrose 5% in Water 1,000 ML IV PRN (09:59)
[2019-05-29] MEDS ORDERED: HumaLOG 300 UNITS/3 ML VIAL SC PRN (09:59)
[2019-05-29] MEDS ORDERED: Dextrose 50% Abboject 50 ML SYRINGE SLOW IVP PRN (09:59)
[2019-05-29] MEDS ORDERED: Bisacodyl 5 MG TAB PO PRN (09:59)
[2019-05-29] MEDS ORDERED: Acetaminophen 325 MG TAB PO PRN (09:59)
[2019-05-29] MEDS ORDERED: guaiFENesin/DM ER PO PRN (10:04)
[2019-05-29] MEDS ORDERED: PROVENTIL INHALER 6.7 G (200 INHALATIONS) INH PRN (10:04)
[2019-05-29] MEDS ORDERED: Cetirizine HCl 10 MG TAB PO PRN (10:04)
[2019-05-29] MEDS ORDERED: Iopamidol 370 76% 100 ML VIAL ONE (10:07)
[2019-05-29] MEDS ORDERED: Loratadine 10 MG TAB PO PRN (10:16)
[2019-05-29 10:58] LABS: Bacteria/HPF None Seen HPF (None Seen); Bilirubin Negative (Negative); Blood, Urine Negative (Negative); Clarity Clear (Clear); Glucose, Urine (Dipstick) Normal (Negative); Leukocyte Negative Leu/uL (Negative); Nitrite Negative (Negative); Protein, Urine (Dipstick) Negative (Neg-Trace); RBC/HPF 0-3 HPF (0-3); Squamous Epithelial None Seen HPF (0-3); Urobilinogen Normal mg/dL (Less than 2); WBC/HPF 0-3 HPF (0-3)
[2019-05-29 11:01] LABS: Urine Culture Reflex No No
[2019-05-29] MEDS: Morphine ER 15 MG TAB PO SCH ×2 (11:03→20:48)
--- NOTE | 2019-05-29 11:57 | MRI ---
Exam: Brain MRI without contrast HISTORY: Syncope COMPARISON: 07/19/2018 FINDINGS: Calvarial marrow signal intensity: Appropriate T1 signal Gradient echo sequence: No hemorrhage Brain parenchyma: No parenchymal mass, mass effect or midline shift. There is interval encephalomalac ia and gliosis corresponding to a previous region of remote left lentiform nucleus and subinsular cortex infarct. Cortical banks-white matter differentiation: With the exception of the left insular cortex, cortical g ray-white matter differentiation is preserved Restricted diffusion: Small foci of restricted diffusion are noted along the periventricular white ma tter, adjacent to the frontal horn and body of the left lateral ventricle. White matter signal intensities:Scattered T2 and FLAIR white matter hyperintensities due to chronic s mall vessel ischemic change Sinuses: Adequate aeration of the paranasal sinuses and mastoid air cells. IMPRESSION: 1. Encephalomalacia and gliosis compatible with a previous left deep banks matter and left insular cor kamla infarct. 2. Minimal restricted diffusion involving the left periaortic white matter suggesting a component of white matter infarction.
[2019-05-29] MEDS ORDERED: PROTEASE PO SCH (12:00)
[2019-05-29] MEDS ORDERED: [UNRECOGNIZED DRUG - OTHER] PO SCH (12:00)
[2019-05-29] MEDS ORDERED: AMYLASE PO SCH (12:00)
[2019-05-29] MEDS ORDERED: LIPASE PO SCH (12:00)
[2019-05-29] MEDS: Sodium Chloride 0.9% 1,000 ML IV SCH (12:16)
[2019-05-29] MEDS: Pancrelipase DR 12000 1 CAP PO SCH ×3 (12:21→20:50)
[2019-05-29 13:18] LABS: Troponin I 0.019 ng/mL (< 0.028)
--- NOTE | 2019-05-29 13:32 | CT ---
CT PULMONARY ANGIOGRAM WITH IV CONTRAST AND 3D POSTPROCESSIN05/29/19 HISTORY: 58-year-old male with chest pain and shortness of breath. FINDINGS: Opacification of the pulmonary artery vasculature is inadequate (168 Hounsfield units in the main pul monary arterial trunk). Possibility of pulmonary embolism cannot be excluded on this study. There is good contrast opacification of the thoracic aorta without aneurysmal dissection. No pleural or pericardial effusions are seen. No pneumothoraces, focal areas of consolidation, lung nodules and masses are identified. There are degenerative changes in the spine. Old rib fractures of the right ri bs. IMPRESSION: 1. Nondiagnostic for pulmonary embolism. 2. No evidence of thoracic aortic aneurysm or dissection. POS: [facility]
[2019-05-29] MEDS: Cephalexin 250 MG CAP PO SCH ×2 (14:29→20:50)
[2019-05-29] MEDS ORDERED: Non-Formulary Item 1 EACH (Cephalexin [Keflex] 500 MG) PO SCH (15:00)
--- NOTE | 2019-05-29 15:28 | HP ---
PRIMARY CARE PROVIDER: Michael Welch MD CHIEF COMPLAINT: Syncope. HISTORY OF PRESENT ILLNESS: Mr. Recinos is a pleasant 58-year-old gentleman, who was seen at [facility] on May 29, 2019. He is able to provide some history. Collateral history was obtained from discussion with the patient's over the telephone, review of medical records and discussion with emergency room physician. Mr. Recinos has a history of cerebrovascular accident with residual right-sided weakness. Around 04:30 a.m., 2 nights ago, he woke up to go to the bathroom. Even before he entered the bathroom, he had a syncopal episode, when he tried to turn the light on. He saw Dr. Welch yesterday. He was advised to go to emergency room if there is recurrence. He was also started on antibiotics for dog scratches on his right upper extremity. Today, around 04:10 a.m., he went to urinate in the bathroom. He lost consciousness and ended up falling into the shower. He was unable to get up. According to his , he has been less mobile than usual. The patient denies any chest pain. He denies any fevers or chills. He is unsure if he was lightheaded prior to the fall. He denies any abdominal pain. REVIEW OF SYSTEMS: All systems were reviewed and found to be negative except for the pertinent positives mentioned above. PAST MEDICAL HISTORY: Myocardial infarction, pancreatitis, traumatic pneumothorax, diabetes mellitus type 2, dyslipidemia, hypertension, asthma, MRSA infection, and cerebrovascular accident. PAST SURGICAL HISTORY: Cholecystectomy and right great toe amputation. PSYCHIATRIC HISTORY: Depression. SOCIAL HISTORY: The patient denies tobacco use, alcohol use, or recreational drug use. ALLERGIES: MUSHROOMS. CURRENT MEDICATIONS: 1. Albuterol p.r.n. 2. Mucinex p.r.n. 3. Aripiprazole 2 mg daily. 4. Aspirin 81 mg daily. 5. Azelastine nasal spray. 6. Cephalexin 500 mg 3 times a day. 7. Cetirizine 10 mg daily as needed. 8. Nexium 40 mg 2 times a day. 9. Prozac 80 mg every morning. 10. Advair Diskus 1 puff 2 times a day. 11. Toujeo insulin 100 units in the morning. 12. Pancrelipase one capsule 4 times a day. 13. Lisinopril 20 mg daily. 14. Metformin 2000 mg daily. 15. Morphine 15 mg 3 times a day. 16. Multivitamins one capsule daily. 17. Simvastatin 80 mg at bedtime. 18. Testosterone 1 pump daily. 19. Ambien 12.5 mg at bedtime. FAMILY HISTORY: No family history of premature coronary artery disease. PHYSICAL EXAMINATION: GENERAL: On examination, Mr. Recinos is awake and alert, not in acute distress. VITAL SIGNS: He is obese, with a BMI of 34.7. Blood pressure is 116/71, pulse 81, respiratory rate 24, and oxygen saturation 98% on 2 L of oxygen. He is afebrile. EYES: No scleral icterus. No conjunctival pallor. ENT: Dry mucosal membranes. No oropharyngeal erythema or exudates. NECK: Supple and nontender. Trachea is midline. RESPIRATORY: Accessory muscles of breathing are not active. Chest wall movements are symmetric bilaterally. LUNGS: Clear to auscultation without wheeze, rhonchi, or crepitations. CARDIOVASCULAR: S1 and S2 are heard, regular. Peripheral pulses palpable. ABDOMEN: Soft and nontender. Bowel sounds are heard. NEUROLOGIC: Cranial nerves 2 through 12 are intact. Power is 4+/5 in the right upper and lower extremities, 5/5 in the left upper and lower extremities. No focal sensory deficits. Deep tendon reflexes 2+, plantars downgoing bilaterally. MUSCULOSKELETAL: Power in the 4 extremities as described above. SKIN: He has scratch agudelo over his shins bilaterally as well as over his right forearm. LYMPHATIC: No cervical lymphadenopathy. PSYCHIATRIC: Normal mood. Normal affect. The patient is oriented to person, place, and time. LABORATORY DATA: Mr. Recinos's labs and investigations were reviewed. I reviewed his electrocardiogram, which shows normal sinus rhythm, no ST changes to suggest an acute coronary syndrome. I also reviewed his chest x-ray, which does not show any pulmonary infiltrates. Noncontrast CT scan of the brain did not show any acute intracranial abnormality. CT scan of the pelvis did not show any acute fracture. Urinalysis is negative. CBC shows normocytic anemia with hemoglobin 11.6, no leukocytosis, normal platelet count. Creatinine is elevated at 1.59. It was 0.90 on July 20, 2018. Comprehensive metabolic profile is otherwise unremarkable. Troponin I is negative x3. BNP is normal. ASSESSMENT AND PLAN: Mr. Recinos is a pleasant 58-year-old gentleman, who was seen at [facility] on May 29, 2019. His problem list includes: 1. Syncope: Mr. Recinos is presenting with syncope, etiology is unclear. Given his history of decreased mobility, we will check a CT angiogram of the chest to rule out pulmonary embolism. He will be monitored on telemetry. We will also check 2D echocardiogram. Further investigations depending on the outcome of this test. 2. Acute kidney injury: The patient is clinically dry. Provide gentle hydration, hold nephrotoxic medications including SUZANNA inhibitor and metformin, recheck creatinine. 3. Diabetes mellitus type 2: Start Accu-Cheks and insulin sliding scale. 4. Hypertension: Monitor vital signs, titrate antihypertensives as needed. 5. History of stroke: Continue statin and aspirin. 6. History of coronary artery disease: Continue aspirin and statin. Many thanks for allowing me to participate in your patient's care. Please feel free to contact me with any questions or concerns. LEVEL OF RISK: High. LEVEL OF COMPLEXITY: High. Job ID: [id number]
--- NOTE | 2019-05-29 15:50 | NM ---
VENTILATION PERFUSION LUNG SCAN: 05/29/19 INDICATION: Shortness of breath. Assess for pulmonary embolus. Ventilation scan performed administering 14 millicuries of Xenon gas. FINDINGS: Normal ventilation. No ventilation defect. No significant air trapping. Perfusion scan performed administering 6 millicuries of technetium labeled MAA IV. The lungs were rene ged in eight projections. No perfusion defect. Normal bilateral perfusion. Correlation made to chest film at 05/29/19 which shows no focal infiltrate. IMPRESSION: Normal VQ scan. POS: [facility]
[2019-05-29] MEDS: Mometasone/Formoterol 120 PUFF INHALER INH SCH (18:57)
[2019-05-29] MEDS: Azelastine 137 MCG/Spray 30 ML NS SCH (20:52)
[2019-05-29] MEDS ORDERED: Non-Formulary Item 1 EACH (Simvastatin [Simvastatin] 80 MG) PO SCH (21:00)
[2019-05-29] MEDS ORDERED: Zolpidem Tartrate 5 MG TAB PO SCH (21:00)
[2019-05-29] MEDS ORDERED: ZOLPIDEM TARTRATE 12.5 MG PO SCH (21:00)
[2019-05-29] MEDS ORDERED: Azelastine 137 MCG/Spray 30 ML NS SCH (21:00)
[2019-05-29] MEDS ORDERED: Non-Formulary Item 1 EACH (Fluticasone/Salmeterol [Advair Diskus 100/50] 1 INH) IH SCH (21:00)
[2019-05-29] MEDS ORDERED: Atorvastatin Calcium 40 MG TAB PO SCH (21:00)
[2019-05-29] MEDS ORDERED: Non-Formulary Item 1 EACH (Esomeprazole Magnesium [Nexium] 40 MG) PO SCH (21:00)
[2019-05-29] MEDS ORDERED: Aspirin Chewable 81 MG TAB PO SCH (21:00)
[2019-05-30 05:23] LABS: #Eosinphils 0.2 thou/uL (0.0-0.7); #Lymphocytes 1.4 thou/uL (1.20-3.40); #Monocytes 0.6 thou/uL (0.11-0.59); #Neutrophils 2.6 thou/uL (1.40-6.50); %Basophils 0.3 % (0.0-1.0); %Eosinophils 3.7 % (0.0-10.0); %Monocytes 11.5 % (0.0-10.0); %Neutrophils 54.5 % (42.0-75.0); Hemoglobin 10.2 g/dL (14.0-18.0); Mean Corpuscular HGB CONC 33.3 g/dL (32.0-36.0); Mean Corpuscular Hemoglobin 28.7 pg (27.0-31.0); Mean Platelet Volume 8.2 fL (7.4-10.4); Platelet Count 163 thou/uL (130-400); RBC Distribution Width 14.3 % (11.5-14.5); Red Blood Cell (RBC) Count 3.55 mill/uL (4.70-6.10); White Blood Cell (WBC) Count 4.8 thou/uL (4.8-10.8)
[2019-05-30] MEDS: Sodium Chloride 0.9% 1,000 ML IV SCH (05:51)
[2019-05-30 05:56] LABS: Chloride 104 mmol/L (98-107); Potassium 4.5 mmol/L (3.5-5.1); Sodium 139 mmol/L (136-145)
[2019-05-30 05:57] LABS: Calcium 8.6 mg/dL (7.8-10.44); Glucose 124 mg/dL (70-105)
[2019-05-30 05:59] LABS: Anion Gap 15 mmol/L (10-20)
[2019-05-30 06:01] LABS: Calc. Creatinine Clearance 123 mL/min (70-130); Estimated GFR-MDRD 74
[2019-05-30 06:02] LABS: BUN (Urea Nitrogen) 16 mg/dL (8.4-25.7)
[2019-05-30 06:16] LABS: Carbon Dioxide 24 mmol/L (22-29)
[2019-05-30] MEDS: Mometasone/Formoterol 120 PUFF INHALER INH SCH (06:48)
[2019-05-30] MEDS: Pancrelipase DR 12000 1 CAP PO SCH ×2 (08:49→12:42)
[2019-05-30] MEDS: Cephalexin 250 MG CAP PO SCH ×2 (08:49→15:09)
[2019-05-30] MEDS ORDERED: FLUOXETINE HCL 80 MG PO SCH (09:00)
[2019-05-30] MEDS ORDERED: INSULIN GLARGINE HUM REC ANLOG 100 UNIT SC SCH (09:00)
[2019-05-30] MEDS ORDERED: Multivit, Therapeutic 1 TAB PO SCH (09:00)
[2019-05-30] MEDS ORDERED: Insulin Glargine 50 UNITS in Pre-Filled Syringe 1 EACH SC SCH (09:00)
[2019-05-30] MEDS ORDERED: Aripiprazole 2 MG TAB PO SCH (09:00)
[2019-05-30] MEDS ORDERED: Enoxaparin Sodium 40 MG/0.4 ML SYRINGE SC SCH (09:00)
[2019-05-30] MEDS ORDERED: Non-Formulary Item 1 EACH (Multivitamin [Multivitamins] 1 CAP) PO SCH (09:00)
[2019-05-30] MEDS ORDERED: FLUoxetine HCl 20 MG CAP PO SCH (09:00)
[2019-05-30] MEDS ORDERED: TESTOSTERONE PUMP TOP SCH (09:00)
[2019-05-30] MEDS: Morphine ER 15 MG TAB PO SCH ×2 (09:05→15:08)
[2019-05-30] MEDS: Azelastine 137 MCG/Spray 30 ML NS SCH (11:20)
[2019-05-30 12:19] VITALS: BP 132/68; TEMP 97.9
--- NOTE | 2019-05-30 17:02 | CON ---
DATE OF CONSULTATION: 05/30/2019 Telemedicine consultation. CHIEF COMPLAINT: Right-sided weakness. HISTORY OF PRESENT ILLNESS: History was obtained both from the patient and his . The patient had sudden onset right-sided weakness. He was shuffling his feet on and fell in the bathroom twice. His speech was mildly affected. This occurred at about 4 a.m. on . He went to the primary care doctor's office by 1:00 p.m. Something was off the whole day and he was in the door and the door shut. Around Saturday, at about 4:10 a.m. he fell again and blacked out twice. brought him to the hospital. He had the same symptoms prior to his carotid artery surgery last year. He has had stroke, in June 2018 and left carotid artery surgery in June 2018. PREVIOUS MEDICAL HISTORY: Positive for myocardial infarction in 2008, sports asthma per , and he also has hypertension, pancreatitis, traumatic pneumothorax, diabetes type 2, and MRSA infection after a toe repair on the right foot and prior CVA. PREVIOUS SURGICAL HISTORY: Cholecystectomy and right great toe amputation. PSYCHIATRIC HISTORY: Positive for depression. SOCIAL HISTORY: He does not smoke or drink alcohol. 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 FAMILY HISTORY: His brother is 54, has hypertension. His father at 66 from an CA. Mother at 45 from hereditary blood disorder. ALLERGIES: HE IS ALLERGIC TO MUSHROOMS. MEDICATIONS: I reviewed his medications and chart. He is on aspirin, morphine, metformin, and simvastatin. REVIEW OF SYSTEMS: PULMONARY: Positive for shortness of breath and asthma. GI: Negative for nausea, vomiting, and diarrhea. OPHTHALMOLOGIC: Negative for current vision problems. ENT: Negative for hearing issues. DERMATOLOGIC: Negative for any skin problems or rash. HEMATOLOGIC: Negative for bleeding diathesis or and kind of hematological disorder. NEUROLOGIC: Positive for prior history of stroke and current stroke symptoms. LABORATORY WORKUP: White count 4.8, hemoglobin 10.2, hematocrit 30.6, platelet count 163. Chemistry: Sodium 139, potassium 4.5, chloride 104, bicarb 24, BUN 16 , creatinine 1.02, glucose 124. Urinalysis is negative. Other reports; he had an MRI scan of the brain which was requested today and the MRI shows encephalomalacia and gliosis compatible with previous left deep banks matter and left insular cortical infarct. Minimal restricted diffusion of the left frontal white matter suggesting a component of white matter infarction. His echocardiogram and CT angio are pending at this time. He did not have a Doppler as of now at the time of this dictation. PHYSICAL EXAMINATION: VITAL SIGNS: Blood pressure 132/68, temperature 97.9, pulse 81, respiratory rate 20, O2 saturations 95. GENERAL APPEARANCE: Well-built, well-nourished man, who is comfortable in bed. CHEST: Clear vesicular breathing. CARDIOVASCULAR: S1, S2 heard. No murmurs. ABDOMEN: Soft and nontender. No organomegaly noted. NEUROLOGICAL: Higher intellectual functions normal, orientation to time, place , and person and appropriate conversation. Cranial nerves 2 through 12 normal. Extraocular movements, pupils 2 mm, reactive to light. Normal sensation of face bilaterally. Tongue midline. No atrophy noted. Motor examination, bulk normal , tone normal, strength 5/5 on the left side, 5-/5 on the right side. Muscle groups tested are deltoid, biceps, triceps, wrist extension and flexion, finger extension and flexion, iliopsoas, hamstrings, quadriceps, ankle dorsiflexion, plantar flexion bilaterally. Deep tendon reflexes 1+ throughout. Sensory, normal bilaterally and cerebellar normal [id number] and [id number]. IMPRESSION: The patient with prior carotid artery surgery, right carotid in April 2018, left carotid in June 2018 and prior history of cerebrovascular accident. He is currently here for evaluation of his right hemiparesis. His MRI does show mild white matter ischemic event, which is likely related to hypertension or diabetes rather than and other embolic phenomena. He is pending ultrasound scan of the carotids at this time and also echocardiogram. RECOMMENDATIONS: I think he will do better with full-dose aspirin along with statin rather than baby aspirin. At this time, he is cleared for discharge from a neuro standpoint. Call me if you have any further questions. Job ID: [id number] [facility]
--- NOTE | 2019-05-31 01:32 | DIS ---
DATE OF ADMISSION: 05/29/2019 DATE OF DISCHARGE: 05/30/2019 DISCHARGE DIAGNOSES: 1. Syncope, multifactorial, likely component of #2. 2. Lacunar infarct of the left insular cortex, suspected. 3. Acute kidney injury secondary to dehydration, improved. 4. Diabetes mellitus type 2, labile. 5. Hypertension, stable. 6. History of prior cerebrovascular accident. 7. Coronary artery disease, chronic and stable. CONSULTATIONS: Dr. Guevara with Neurology Service. PERTINENT LABORATORY AND X-RAY FINDINGS: Creatinine ranged between 1.02 to 1.59. Estimated GFR ranged between 45 to 74. BNP less than 10. Troponin I negative x3. CBC showed a white blood cell count ranged between 4.8 to 6.4, hemoglobin ranged between 10.2 to 11.6. Urinalysis negative. CT of the brain without contrast dated 05/29/2019, showed no acute intracranial process. Encephalomalacia involving the left middle cerebral artery distribution infarct. CT of the pelvis dated 05/29/2019, showed no acute fracture. Portable chest x-ray dated 05/29/2019, showed no acute cardiopulmonary process. CT angiogram of the chest dated 05/29/2019, showed nondiagnostic for pulmonary embolus. No evidence for aneurysm or dissection. MRI of the brain dated 05/29/2019, showed encephalomalacia and gliosis consistent with prior left middle cerebral artery territorial infarct. Minimal restricted diffusion in the left periaortic white matter. Pulmonary perfusion imaging dated 05/29/2019, showed low probability for pulmonary embolus. HOSPITAL COURSE: The patient was observed on the telemetry unit after initially presenting with syncope. The patient underwent extensive evaluation including multiple imaging studies and metabolic workup, likely multifactorial presentation including a component related to small acute infarct in the left insular cortex region. The patient also underwent evaluation to rule out pulmonary embolus with ventilation perfusion study confirming negative study. The patient did receive IV fluids and gentle hydration due to acute kidney injury and likely component of dehydration. Telemetry monitoring showed no evidence of acute arrhythmia or dysrhythmia. Metabolic workup confirmed evidence of acute kidney injury with elevated creatinine, resolving by the time of discharge. The patient was evaluated by the Neurology Service with recommendations to continue aspirin and statin therapy for discharge. The patient also encouraged on tighter glucose control on an ongoing basis after discharge. I have examined the patient at the time of discharge and discussed followup instructions. The patient verbalized understanding and agreement ready for discharge on 05/30/2019. DISCHARGE MEDICATIONS: 1. Albuterol sulfate HFA 2 puffs inhaled q.4 hours p.r.n. 2. Aripiprazole 2 mg p.o. q.a.m. 3. Azelastine 0.1% nasal spray, two sprays in each naris b.i.d. 4. Keflex 500 mg p.o. t.i.d. 5. Zyrtec 10 mg p.o. daily p.r.n. 6. Nexium 40 mg p.o. b.i.d. 7. Prozac 80 mg p.o. q.a.m. 8. Advair Diskus 100/50 one inhalation b.i.d. 9. Mucinex DM 600 mg/30 mg one tablet p.o. q.12 hours p.r.n. 10. Glargine insulin 100 units subcutaneously q.a.m. 11. Lipase/protease/amylase one capsule p.o. q.i.d. 12. Lisinopril 20 mg p.o. q.a.m. 13. Metformin 2000 mg p.o. at bedtime. 14. Morphine sulfate extended release 15 mg p.o. t.i.d. 15. Multivitamin 1 tablet p.o. daily. 16. Simvastatin 80 mg p.o. at bedtime. 17. Testosterone 1.62 gel one pump topically daily. 18. Ambien 12.5 mg p.o. at bedtime. 19. Enteric-coated aspirin 162 mg p.o. at bedtime. FOLLOWUP: The patient may follow up with Dr. Michael Welch within 7 days of discharge. CONDITION ON DISCHARGE: Stable. ACTIVITY: Ad charisma, rolling walker for ambulation. DIET: ADA and heart healthy. CODE STATUS: Full. DISPOSITION: To home, 05/30/2019. Job ID: [id number]
== END 2019-05-30 15:40 | disposition home or self-care (01) ==
LOC: ERS 04:36 → 2SW 06:54
PROVIDERS: ADMIT Internal Medicine; ATTEND Internal Medicine
DX: R55 Syncope and collapse (principal); N17.9 Acute kidney failure, unspecified; E86.0 Dehydration; I10 Essential (primary) hypertension; I25.10 Atherosclerotic heart disease of native coronary artery without angina pectoris; F32.9 Major depressive disorder, single episode, unspecified; Z86.73 Personal history of transient ischemic attack (TIA), and cerebral infarction without residual deficits; Z79.4 Long term (current) use of insulin; Z79.82 Long term (current) use of aspirin; Z79.899 Other long term (current) drug therapy; Z91.018 Allergy to other foods
CPT/HCPCS: 36415; 36416; 70450; 70551; 71045; 71275; 72192; 78582; 80048; 80053; 81001; 83880; 84484; 85025; 93005; 93306; 96360; 96361; 96372; A9540; A9558; G0378; J1650; J1815; Q9967

== ENCOUNTER 2021-10-09 22:39 | Emergency (ER) | payer OTHER | END 2021-10-10 00:12 | LOC: ERS 22:39 | DX: T82.524A Displacement of infusion catheter, initial encounter (principal); E78.00 Pure hypercholesterolemia, unspecified; E78.5 Hyperlipidemia, unspecified; I10 Essential (primary) hypertension; J45.909 Unspecified asthma, uncomplicated; I25.2 Old myocardial infarction; F17.220 Nicotine dependence, chewing tobacco, uncomplicated; Z79.1 Long term (current) use of non-steroidal anti-inflammatories (NSAID); Z86.73 Personal history of transient ischemic attack (TIA), and cerebral infarction without residual deficits; Z79.899 Other long term (current) drug therapy; Z79.82 Long term (current) use of aspirin | CPT/HCPCS: 99283 ==